=== PATIENT | female | born 1975 | race Hispanic/Latino ===

== ENCOUNTER 2019-11-07 11:06 | Emergency (ER) | payer BC ==
[~2019-11-07] VITALS: Ht 160 cm; Wt 74.8 kg
[2019-11-07] MEDS ORDERED: SODIUM CHLORIDE 0.9% 1000ML 1,000 ML IV STA (11:24)
[2019-11-07] MEDS ORDERED: ONDANSETRON HCL INJ 2MG/ML 2ML 2 MG/ML VIAL IV NR (11:30)
[2019-11-07] MEDS ORDERED: PANTOPRAZOLE 40 MG 10ML VIAL IV NR (11:30)
[2019-11-07] MEDS ORDERED: KETOROLAC TROMETHAMINE 30 MG/ML VIAL IV ONE (11:45)
[2019-11-07 11:53] LABS: BASOPHILS # (AUTO) 0.1 (0.0-0.1); BASOPHILS % 0.7 % (0.0-1.0); EOSINOPHILS # (AUTO) 1.6 (0.0-0.4); EOSINOPHILS % 13.4 % (0.0-6.0); HEMATOCRIT 40.3 % (34.2-44.1); HEMOGLOBIN 13.1 g/dL (12.0-16.0); LYMPHOCYTES # (AUTO) 2.5 (1.0-3.2); LYMPHOCYTES % 20.4 % (18.0-39.1); MEAN CORPUSCULAR HEMOGLOBIN 28.6 pg (28-32); MEAN CORPUSCULAR HGB CONC 32.5 g/dL (31-35); MONOCYTES # (AUTO) 0.7 (0.2-0.8); MONOCYTES % 5.7 % (4.4-11.3); NEUTROPHILS # (AUTO) 7.1 (2.1-6.9); NEUTROPHILS % 59.2 % (38.7-80.0); PLATELET COUNT 415 x10e3/uL (140-360); RED BLOOD COUNT 4.58 x10e6/uL (3.6-5.1); RED CELL DISTRIBUTION WIDTH 13.8 % (11.7-14.4)
--- OUTSIDE RECORDS SUMMARY | 2019-11-07 11:53 | XMS REPORT | Continuity of Care Document ---
Author Author [facility] t Organization [facility] Address [address] [place] [address] Phone Unavailable Care Team Providers Care Supervisor Canvas Products Name Role Phone Imtiaz CURRIE, Luis PCP Merary VEGAS, Ivania Abbott Attphys [phone] Donna RAMOSN, Any Attphys Unavailable Torrey CURRIE, Jamee Kee Attphys [phone] Bryan HUERTA, Veronika Attphys Unavailable Anito, B Binca Attphys Unavailable TRICHE, MILICENT Attphys Unavailable TRICHE, MILICENT Admphys Unavailable Payers Payer Name Policy Type Policy Number Effective Date Expiration Date S john BCBSBCBS CHOICE PPO/FEDERAL EMPL PPOxxxxxxxxxxxx2015-Pre sentPPO xxxxxxxxxxxx 2015 00:00:00 Hardeep Evangelical Problems Condition Name Condition Details Condition Category Status Onset Date Resolution Date Last Treatment Date Treating Clinician Comments Source Ulcerative colitis Ulcerative colitis Disease Active 2017-11-29 00:00:0 0 Hardeep Nuñez Allergies, Adverse Reactions, Alerts This patient has no known allergies or adverse reactions. Family History Family Member Diagnosis Comments Start Date Stop Date Source Natural brother No Known Problems Ho noman Evangelical Natural father No Known Problems Sakshi rowland Evangelical Maternal grandfather No Known Problems Hardeep Evangelical Maternal grandmother No Known Problems Meier Evangelical Natural mother No Known Problems Sakshi rowland Evangelical Other No Known Problems Hardeep Evangelical Paternal grandfather No Known Problems Hardeep Evangelical Paternal grandmother No Known Problems Hardeep Evangelical Natural sister No Known Problems Sakshi rowland Evangelical Social History Social Habit Start Date Stop Date Quantity Comments Source Sex Assigned At Sakshi rowland Evangelical Alcohol intake 2019-03-29 00:00:00 2019-03-29 00:00:00 Current non-drinker of alcohol (finding) Hardeep Nuñez History of tobacco use 1998-08-31 00:00:00 Current smoker Hardeep Nuñez Smoking Status Start Date Stop Date Source Former smoker 2019-03-29 00:00:00 2019-03-29 00:00:00 Hardeep Nuñez Medications Ordered Medication Name Filled Medication Name Start Date Stop Da te Current Medication? Ordering Clinician Indication Dosage Frequency Signature (SIG) Comments Components Source mesalamine (ASACOL) 800 mg EC tablet 2019-08-28 00:00:00 Ye s TAKE 2 TABLETS BY MOUTH 3 TIMES A DAY Hardeep Nuñez ergocalciferol (VITAMIN D2) 50,000 unit capsule 2019-08-28 00:00 :00 Yes 41905D Q7D Take 1 capsule (50,000 Units total) by mouth once a we ek. Hardeep Nuñez budesonide 9 mg tablet, delayed & ext.release 10-09-00 00:00:00 2019-09-22 23:59:00 No Ulcerative pancolitis with other complication ( HCC) Take one po qd Hardeep Nuñez budesonide 9 mg tablet, delayed & ext.release 11-08-24 00:00:00 2019-08-23 00:00:00 No Take one po qd Hardeep Nuñez budesonide (Uceris) 2 mg/actuation foam 00:00:00 2019-09-26 23:59:00 No Insert 1 appli cator pr BID x 2 weeks, then qhs x 4 weeks, then stop Hardeep Nuñez traMADol (ULTRAM) 50 mg tablet 2019-03-29 11:00:46 2019-03-29 00 :00:00 No 50mg Q6H Take 50 mg by mouth every 6 (six) hours as neede d for moderate pain. Hardeep Nuñez ranitidine (ZANTAC) 150 MG tablet 2019-03-29 11:00:46 2019 00:00:00 No 150mg Q.5D Take 150 mg by mouth 2 (two) times a day . Hardeep Nuñez celecoxib (CeleBREX) 100 MG capsule 2019-03-29 00:00:00 Yes Pain in joint, multiple sites 100mg Q.5D Take 1 capsule (100 mg total) by mouth 2 (two) times a day. As needed for joint pain Hardeep mireles VITAMIN D2 50,000 unit capsule 2018-12-26 00:00:00 5 00:00:00 No Vitamin D deficiency TAKE ONE CAPSULE BY MOUTH ONCE WEEKLY Hardeep Nuñez celecoxib (CeleBREX) 100 MG capsule 2018-11-25 00:00:0 0 2019-03-29 00:00:00 No Pain in joint involving multiple sites 100mg Q. 5D Take 1 capsule (100 mg total) by mouth 2 (two) times a day. As needed for joint pain Hardeep Nuñez methylPREDNISolone (MEDROL, ANASTASIYA,) 4 mg tablet 20 11-12-03 00:00:00 2018-11-30 23:59:00 No Pain in joint involving multiple sites follow package directions Hardeep Nuñez adjuvant [id number], PF,vial 1 of 2 suspension 2018-02 00:00:00 2018-11-24 23:59:00 No Need for shingles vaccine .5mL Inject 0.5 mL into the shoulder, thigh, or buttocks once for 1 dose. Vikki Nuñez varicella-zoster gE vac,2 of 2 50 mcg suspension for reconst itution 2018-11-24 00:00:00 2018-11-24 23:59:00 No Need for shingles vaccine .5mL Inject 0.5 mL into the shoulder, thigh, or buttocks once for 1 dose. Hardeep Nuñez budesonide (UCERIS) 2 mg/actuation foam 00:00:00 2019-02-17 23:59:00 No Ulcerative pancolitis with rectal bleeding (HCC ) 1 application rectally twice daily x 2 weeks followed by 1 application rectally once daily x 4 weeks Hardeep Nuñez pantoprazole (PROTONIX) 40 MG EC tablet 2018-08-17 00:00:00 Yes 40mg QD Take 1 tablet (40 mg total) by mouth daily. Hardeep Nuñez dicyclomine (BENTYL) 10 MG capsule 2018-08-17 00:00:00 Yes Lower abdominal pain Take 1-2 capsules up to four regino es daily as needed for abdominal pain Hardeep Nuñez mesalamine (ASACOL) 800 mg EC tablet 2018-08-17 00:00: 00 2019-08-28 00:00:00 No 1600mg Q.[id number] Take 2 tablets (1,600 mg total) by mouth 3 (three) times a day. Hardeep Nuñez vedolizumab (ENTYVIO) 300 mg recon soln IV solution 2017-02 00:00:00 Yes Infuse 300mg IV every 8 weejs Hardeep Nuñez ergocalciferol (VITAMIN D2) 50,000 unit capsule 2017-11-30 00:00:00 2018-12-23 00:00:00 No Vitamin D deficiency 55574M Q7D Take 1 capsule (50,000 Units total) by mouth once a week. Hardeep lomeli Immunizations Ordered Immunization Name Filled Immunization Name Date Status Comments Source Hepatitis B 2018-01-26 00:00:00 Completed Vikki Nuñez Pneumococcal Polysaccharide 2018-01-26 00:00:00 Completed Hardeep Nuñez FLUZONE QUAD 2017-12-05 00:00:00 Completed Sakshi Nuñez Pneumococcal Conjugate 13-Valent 2017-11-29 00:00:00 Compl eted Hardeep Nuñez Vital Signs Vital Name Observation Time Observation Value Comments Source Systolic blood pressure 2019-03-29 10:58:00 119 mm[Hg] Hardeep Nuñez Diastolic blood pressure 2019-03-29 10:58:00 81 mm[Hg] Hardeep Nuñez Heart rate 2019-03-29 10:58:00 88 /min Hardeep Nuñez Body height 2019-03-29 10:58:00 160 cm Hardeep Nuñez Body weight 2019-03-29 10:58:00 74.844 kg Hardeep Nuñez BMI 2019-03-29 10:58:00 29.23 kg/m2 Hardeep Nuñez Procedures Procedure Date / Time Performed Performing Clinician [facility] CBC WITH PLATELET AND DIFFERENTIAL 2019-11-06 16:57:00 Chilango Moran COMPREHENSIVE METABOLIC PANEL 2019-11-06 16:57:00 Chilango Moran SEDIMENTATION RATE 2019-11-06 16:57:00 Chilango Moran VITAMIN D 25 HYDROXY LEVEL 2019-11-06 16:57:00 Chilango Moran FERRITIN LEVEL 2019-11-06 16:57:00 Chilango Moran on Evangelical TOTAL IRON BINDING CAPACITY 2019-11-06 16:57:00 Chilango Moran Evangelical CBC WITH PLATELET AND DIFFERENTIAL 2019-03-29 11:49:00 Milena Reagan Evangelical COMPREHENSIVE METABOLIC PANEL 2019-03-29 11:49:00 Mare Reagan Meier Evangelical C-REACTIVE PROTEIN 2019-03-29 11:49:00 Milena Reagan Ivania H benjaminjanett Evangelical SEDIMENTATION RATE 2019-03-29 11:49:00 Milena Reagan benjaminjanett Evangelical FERRITIN LEVEL 2019-03-29 11:49:00 Milena Reagan Ivania Vikki maliha Evangelical FOLATE LEVEL 2019-03-29 11:49:00 Milena Reagan Ivania Vikki maliha Evangel[employer] TOTAL IRON BINDING CAPACITY 2019-03-29 11:49:00 Milena Reagan Meier Evangelical VITAMIN B12 LEVEL 2019-03-29 11:49:00 Milena Reagan [facility] Evangelical VITAMIN D 25 HYDROXY LEVEL 2019-03-29 11:49:00 Milena Reagan Meier Evangelical CYCLIC CITRULLINATED PEPTIDE AB, IGG 2019-03-29 11:49:00 Milena Robison Evangelical CBC WITH PLATELET AND DIFFERENTIAL 2018-11-30 11:23:00 Chilango Moran [facility] COMPREHENSIVE METABOLIC PANEL 2018-11-30 11:23:00 Chilango Moran Evangelical SEDIMENTATION RATE 2018-11-30 11:23:00 Chilango Moran [facility] Evangelical C-REACTIVE PROTEIN 2018-11-30 11:23:00 Chilango Moran [facility] Evangelical HDL CHOLESTEROL 2018-11-30 11:23:00 Chilango Moran on Evangelical TRIGLYCERIDES 2018-11-30 11:23:00 Chilango Moran on Evangelical LDL-CHOLESTEROL (REFLEX QUEST) 2018-11-30 11:23:00 Cindy Moran Evangelical NON HDL CHOLESTEROL (REFLEX QUEST) 2018-11-30 11:23:00 Chilango Moran QUANTIFERON-TB GOLD PLUS, 1 TUBE 2018-11-30 11:23:00 Chilango Moran Evangelical Plan of Care Planned Activity Planned Date Details Comments Source Future Scheduled Test 2019-10-24 00:00:00 INFLUENZA VACCINE [code = INFLUENZA VACCINE] Hardeep Nuñez Future Scheduled Test 1996-02-04 00:00:00 Screening for maci gnant neoplasm of cervix (procedure) [code = 619837197] Meier Priscillacasie Encounters Start Date/Time End Date/Time Encounter Type [facility] Care Department Encounter ID Source 2019-08-28 00:00:00 2019-08-28 00:00:00 Outpatient [facility] [id number] Hardeep Nuñez 2016-11-02 15:12:00 2016-11-02 23:59:00 Outpatient Ailson [facility] [id number] [facility] Results Test Description Test Time Test Comments Results Result Comments Source Comprehensive metabolic panel 2019-11-07 05:29:00 Test Item Glucose (test code = 2345-7) 126 mg/dL 65-99 H Fasting reference interval For someone without known diabetes, a glucosevalue >125 mg/dL indicates that they may havediabetes and this should be confirmed with afollow-up test. BUN (test code = 3094-0) 9 mg/dL 7-25 Creatinine (test code = 2160-0) 0.65 mg/dL 0.5-1.1 EGFR Non-Afr. Colombian (test code = 2775) 108 > OR = 60 mL /min/1.73m2 EGFR (test code = 95214-3) 125 > OR = 60 mL/min/1.73m2 BUN/creatinine ratio (test code = 3097-3) NOT APPLICABLE 6- 22 (bryan c) Sodium (test code = 2951-2) 137 mmol/L 135-146 Potassium (test code = 2823-3) 3.7 mmol/L 3.5-5.3 Chloride (test code = 2075-0) 98 mmol/L 98-110 CO2 (test code = 2027-9) 30 mmol/L 20-32 Calcium (test code = 49405-6) 9.1 mg/dL 8.6-10.2 Protein (test code = 2885-2) 7.1 g/dL 6.1-8.1 Albumin, S (test code = 1751-7) 4.1 g/dL 3.6-5.1 Globulin, total (test code = 06622-2) 3.0 1.9- 3.7 g/dL (c alc) Albumin/globulin ratio (test code = 1759-0) 1.4 1.0- 2.5 ( calc) Total bilirubin (test code = 1975-2) 0.4 mg/dL 0.2-1.2 Alkaline phosphatase (test code = 6768-6) 95 U/L 31-125 AST (test code = 1920-8) 20 U/L 10-30 ALT (test code = 1742-6) 26 U/L 6-29 IRENA (test code = IRENA) MULTIPLE TESTING PRIORITIES; ROUTINE TESTI NG TO FOLLOW. RAC (test code = RAC) Performing Organization Info rmation: Site ID: RGA Name: [facility] Address: [address] [place] [address] Director: Clay Díaz Lab Interpretation (test code = 77016-5) Abnormal Lee MethodistFerritin [id number] 05:29:00* Test Item Value Reference Range Interpretation Comments Ferritin level (test code = 2276-4) 215 ng/mL 16-232 IRENA (test code = IRENA) MULTIPLE TESTING PRIORITIES; ROUTINE TESTI NG TO FOLLOW. RAC (test code = RAC) Performing Organization Info rmation: Site ID: RGA Name: [facility] Address: [address] [place] [address] Director: Clay Díaz Lee MethodRUST with platelet and [id number] 05:29:00* Test Item Value Reference Range Interpretation Comments WBC (test code = 6690-2) 19.8 3.8- 10.8 Thousand/uL H RBC (test code = 789-8) 4.66 3.80- 5.10 Million/uL HGB (test code = 718-7) 13.6 g/dL 11.7-15.5 HCT (test code = 4544-3) 41.3 % 35-45 MCV (test code = 787-2) 88.6 fL 80-100 MCH (test code = 785-6) 29.2 pg 27-33 MCHC (test code = 786-4) 32.9 g/dL 32-36 RDW (test code = 788-0) 13.4 % 11-15 Platelet count (test code = 777-3) 421 140- 400 Thousand/u L H MPV (test code = 776-5) 9.4 fL 7.5-12.5 Neutrophils, absolute (test code = 751-8) 26558 1,500 - 7,80 0 cells/uL H Lymphocytes, absolute (test code = 731-0) 3485 850- 3,900 c ells/uL Monocytes, absolute (test code = 742-7) 990 200- 950 cells /uL H Eosinophils, absolute (test code = 711-2) 1307 15- 500 cell s/uL H Basophils, absolute (test code = 704-7) 99 0- 200 cells/u L Neutrophils (test code = 770-8) 70.3 % Lymphocytes (test code = 736-9) 17.6 % Monocytes (test code = 5905-5) 5.0 % Eosinophils (test code = 713-8) 6.6 % Basophils + RC (test code = 706-2) 0.5 % IRENA (test code = IRENA) MULTIPLE TESTING PRIORITIES; ROUTINE TESTI NG TO FOLLOW. RAC (test code = RAC) Performing Organization Info rmation: Site ID: [facility] Name: [facility] Address: [address] [place] [address] Director: Clay Díaz Lab Interpretation (test code = 54430-8) Abnormal Lee MethodistSedimentation [id number] 05:29:00* Test Item Value Reference Range Interpretation Comments Sedimentation rate (test code = 4537-7) 43 mm/h < OR = 20 H IRENA (test code = IRENA) MULTIPLE TESTING PRIORITIES; ROUTINE TESTI NG TO FOLLOW. RAC (test code = RAC) Performing Organization Info rmation: Site ID: A Name: [facility] Address: [address] [place] [address] Director: Clay Díaz Lab Interpretation (test code = 02797-4) Abnormal Meier MethodistVitamin D 25 hydroxy [id number] 05:29:00* Test Item Value Reference Range Interpretation Comments Vitamin D, 25-hydroxy (test code = 1988-3) 37 ng/mL 30-100 Vitamin D Status 25-OH Vitamin D: Deficiency: <20 ng/mLInsufficiency: 20 - 29 ng/mLOptimal: > or = 30 ng/mL For 25-OH Vitamin D testing on patients on D2-supplementation and patients for whom quantitation of D2 and D3 fractions is required, the QuestAssureD(TM)25-OH VIT D, (D2,D3), LC/MS/MS is recommended: order code 07398 (patients >2yrs).See Note 1 Note 1 For additional information, please refer to http://education.CrestaTech/faq/RSP671 (This link is being provided for informational/educational purposes only.) IRENA (test code = IRENA) MULTIPLE TESTING PRIORITIES; ROUTINE TESTI NG TO FOLLOW. RAC (test code = RAC) Performing Organization Info rmation: Site ID: JOELLE Name: [facility] Address: [address] [place] [address] Director: Clay Díaz Lee [facility] center[facility] iron binding [id number] 05:29:00* Test Item Value Reference Range Interpretation Comments Iron level (test code = 2498-4) 46 40- 190 mcg/dL Iron binding capacity (test code = 2500-7) 267 250- 450 mc g/dL (calc) Iron saturation (test code = 2502-3) 17 16- 45 % (calc) IRENA (test code = IRENA) MULTIPLE TESTING PRIORITIES; ROUTINE TESTI NG TO FOLLOW. RAC (test code = RAC) Performing Organization Info rmation: Site ID: ROJASA Name: [facility] Address: [address] [place] [address] Director: Clay Díaz Lee MethodistVitamin B12 [id number] 08:09:00* Test Item Value Reference Range Interpretation Comments Vitamin B12 (test code = 2132-9) 584 pg/mL 200-1100 IRENA (test code = IRENA) FASTING:NOFASTING: NO RAC (test code = RAC) Performing Organization Info rmation: Site ID: JOELLE Name: [facility] Address: [address] [place] [address] Director: Clay Meier MethodistFolate [id number] 08:09:00* Test Item Value Reference Range Interpretation Comments Folate (test code = 2284-8) 11.8 ng/mL Reference Range Low: <3.4 Borderline: 3.4-5.4 Normal: >5.4 IRENA (test code = IRENA) FASTING:NOFASTING: NO RAC (test code = RAC) Performing Organization Info rmation: Site ID: RGA Name: [facility] Address: [address] [place] [address] Director: Clay Meier MethodistC-reactive [id number] 08:09:00* Test Item Value Reference Range Interpretation Comments CRP (test code = 1988-5) 15.9 mg/L <8.0 H IRENA (test code = IRENA) FASTING:NOFASTING: NO RAC (test code = RAC) Performing Organization Info rmation: Site ID: RGA Name: [facility] Address: [address] [place] [address] Director: Clay Díaz Lab Interpretation (test code = 44061-0) Abnormal Lee MethodistCyclic citrullinated peptide antibody, [id number] 08:09:00* Test Item Value Reference Range Interpretation Comments Cyclic citrullin peptide Ab (test code = 75161-3) <16 UN[address] S Reference RangeNegative: <20Weak Positive: 20-39Moderate Positive: 40- 59Strong Positive: >59 IRENA (test code = IRENA) FASTING:NOFASTING: NO RAC (test code = RAC) Performing Organization Info rmation: Site ID: IG Name: [facility] Address: [address] [place] [address] Director: Dr. Clay Díaz Meier [id number] 00:31:00* Test Item Value Reference Range Interpretation Comments Cholesterol, total (test code = 2093-3) 170 mg/dL <200 IRENA (test code = IRENA) FASTING:YESFASTING: YES RAC (test code = RAC) Performing Organization Info rmation: Site ID: RGA Name: [facility] Address: [address] [place], [place] [id number] Director: Clay Díaz Meier EvangelicalHDL [id number] 00:31:00* Test Item Value Reference Range Interpretation Comments HDL cholesterol (test code = 2085-9) 59 mg/dL >50 IRENA (test code = IRENA) FASTING:YESFASTING: YES RAC (test code = RAC) Performing Organization Info rmation: Site ID: JOELLE Name: [facility] Address: [address] [place] [address] Director: Clay Gambinoridge Lee [id number] 00:31:00* Test Item Value Reference Range Interpretation Comments Triglycerides (test code = 2571-8) 94 mg/dL <150 IRENA (test code = IRENA) FASTING:YESFASTING: YES RAC (test code = RAC) Performing Organization Info rmation: Site ID: JOELLE Name: [facility] Address: [address] [place] [address] Director: Clay Gambinoridge Lee MethodistLDL-CHOLESTEROL (REFLEX QUEST)2018-12-03 00:31:00* Test Item Value Reference Range Interpretation Comments LDL cholesterol calculated (test code = 31562-4) 92 mg/dL (calc) Reference range: <100 Desirable range <100 mg/dL for primary prevention; <70 mg/dL for patients with CHD or diabetic patients with > or = 2 CHD risk factors. LDL-C is now calculated using the James-Candi calculation, which is a validated novel method providing better accuracy than the Friedewald equation in the estimation of LDL-C. James DONOHUE et al. PARAM. 2013;310(19): 2901-4844 (http:/ /education.Divide.DoubleVerify/faq/CPZ516) IRENA (test code = IRENA) FASTING:YESFASTING: YES RAC (test code = RAC) Performing Organization Info rmation: Site ID: JOELLE Name: [facility] Address: [address] [place] [address] Director: Clay Díaz Lee MethodmaryCHOL/HDLC RATIO (REFLEX QUEST)2018-12-03 00:31:00* Test Item Value Reference Range Interpretation Comments Cholesterol/HDL ratio (test code = 9830-1) 2.9 <5.0 (calc) IRENA (test code = IRENA) FASTING:YESFASTING: YES RAC (test code = RAC) Performing Organization Info rmation: Site ID: ROJASA Name: [facility] Address: [address] [place] [address] Director: Clay Díaz Meier Yolanda HDL CHOLESTEROL (REFLEX QUEST)2018-12-03 00:31:00* Test Item Value Reference Range Interpretation Comments Non-HDL cholesterol (test code = 92464-8) 111 <130 mg/dL ( calc) For patients with diabetes plus 1 major ASCVD risk factor, treating to a non-HDL-C goal of <100 mg/dL (LDL-C of <70 mg/dL) is considered a therapeutic option. IRENA (test code = IRENA) FASTING:YESFASTING: YES LUIS DANIEL (test code = RAC) Performing Organization Info rmation: Site ID: ROJASA Name: [facility] Address: [address] [place] [address] Director: Clay Díaz Meier EvangelicalQuantiFERON-TB Gold Plus, 1 [id number] 00:31:00* Test Item Value Reference Range Interpretation Comments Quantiferon TB gold plus (test code = 78837-6) NEGATIVE NEGATIV E Negative test result. M. tuberculosis complex infection unlikely. Quantiferon NIL (test code = 30104-7) 0.04 IU/mL Quantiferon mitogen minus NIL (test code = 55875-9) >10.00 IU /mL Quantiferon plus TB1 minus NIL (test code = 03572-3) 0.00 I U/mL Quantiferon plus TB2 minus NIL (test code = 5774) 0.01 IU/m L The Nil tube value reflects the background interferongamma immune response of the patient's blood sample.This value has been subtracted from the patient'sdisplayed TB and Mitogen results. Lower than expected results with the Mitogen tubeprevent false- negative Quantiferon readings bydetecting a patient with a potential immunesuppressive condition and/or suboptimal pre-analyticalspecimen handling. The TB1 Antigen tube is coated with theM. tuberculosis-specific antigens designed to elicitresponses from TB antigen primed CD4+ helperT-lymphocytes. The TB2 Antigen tube is coated with theM. tuberculosis-specific antigens designed to elicitresponses from TB antigen primed CD4+ helper and CD8+cytotoxic T- lymphocytes. For additional information, please refer tohttps://education.NewsHunt.DoubleVerify/faq/BEW662(This link is being provided for informational/educational purposes only.) IRENA (test code = IRENA) FASTING:YESFASTING: YES RAC (test code = RAC) Performing Organization Info rmation: Site ID: RGA Name: [facility] Address: [address] [place] [phone] Director: Clay Nuñez
--- OUTSIDE RECORDS SUMMARY | 2019-11-07 11:53 | XMS REPORT | Clinical Summary ---
Author Author [facility] Address Unknown Phone Unavailable Care Team Providers Care Appliance Repairer Name Role Phone Luis Kitchen MD PCP Allergies No Known Allergies Medications End Date Status Medication Sig Dispensed Refills Start Date Active vedolizumab (ENTYVIO) 300 Infuse 300mg 1 each 11 mg recon soln IV solution IV every 8 8 weejs Additional Information Patient taking differently: 300 mg once, Infuse 300mg IV every 4 weeks, last dose Apr 07 . Next one due May 05., Reported on 04/26/2018 10:58 AM Active pantoprazole (PROTONIX) Take 1 tablet 90 tablet 3 40 MG EC tablet (40 mg total) 9 by mouth daily. Active dicyclomine (BENTYL) 10 Take 1-2 180 capsule 3 MG capsuleIndications: capsules up 9 Lower abdominal pain to four times daily as needed for abdominal pain Active celecoxib (CeleBREX) 100 Take 1 60 capsule 3 0 MG capsuleIndications: capsule (100 0 Pain in joint, multiple mg total) by sites mouth 2 (two) times a day. As needed for joint pain Active mesalamine (ASACOL) 800 TAKE 2 540 tablet 3 mg EC tablet TABLETS BY 0 MOUTH 3 TIMES A DAY Active ergocalciferol (VITAMIN Take 1 12 capsule 6 D2) 50,000 unit capsule capsule 0 (50,000 Units total) by mouth once a week. 03/29/2019 Discontinued (Discontinued b y another clinician) traMADol (ULTRAM) 50 mg Take 50 mg by 0 tablet mouth every 6 (six) hours as needed for moderate pain. 03/29/2019 Discontinued (Discontinued b y another clinician) ranitidine (ZANTAC) 150 Take 150 mg 0 MG tablet by mouth 2 (two) times a day. 12/23/2018 Discontinued (Reorder) ergocalciferol (VITAMIN Take 1 12 capsule 3 D2) 50,000 unit capsule 8 capsuleIndications: (50,000 Units Vitamin D deficiency total) by mouth once a week. 08/28/2019 Discontinued mesalamine (ASACOL) 800 Take 2 540 tablet 3 mg EC tablet tablets 9 (1,600 mg total) by mouth 3 (three) times a day. 02/17/2019 budesonide (UCERIS) 2 1 application 33.4 g 3 mg/actuation rectally 9 foamIndications: twice daily x Ulcerative pancolitis 2 weeks with rectal bleeding followed by 1 (HCC) application rectally once daily x 4 weeks 11/24/2018 adjuvant AS01B, PF,vial 1 Inject 0.5 mL 0.5 mL 1 of 2 into the 9 suspensionIndications: shoulder, Need for shingles vaccine thigh, or buttocks once for 1 dose. 11/24/2018 varicella-zoster gE vac,2 Inject 0.5 mL 1 each 1 of 2 50 mcg suspension into the 9 for shoulder, reconstitutionIndications thigh, or : Need for shingles buttocks once vaccine for 1 dose. 11/30/2018 methylPREDNISolone follow 21 tablet 0 01 (MEDROL, ANASTASIYA,) 4 mg package 9 tabletIndications: directions Ulcerative pancolitis with rectal bleeding (HCC), Pain in joint involving multiple sites 03/29/2019 Discontinued (Reorder) celecoxib (CeleBREX) 100 Take 1 60 capsule 3 1 MG capsuleIndications: capsule (100 9 Pain in joint involving mg total) by multiple sites mouth 2 (two) times a day. As needed for joint pain 03/29/2019 Discontinued (Discontinued b y another clinician) VITAMIN D2 50,000 unit TAKE ONE 12 capsule 2 capsuleIndications: CAPSULE BY 9 Vitamin D deficiency MOUTH ONCE WEEKLY 09/26/2019 budesonide (Uceris) 2 Insert 1 66.8 g 0 07/24 mg/actuation foam applicator pr 0 BID x 2 weeks, then qhs x 4 weeks, then stop 08/23/2019 Discontinued (Reorder) budesonide 9 mg tablet, Take one po 30 tablet 3 delayed & ext.release qd 0 09/22/2019 budesonide 9 mg tablet, Take one po 30 tablet 3 delayed & qd 0 ext.releaseIndications: Ulcerative pancolitis with other complication (HCC) Active Problems Problem Noted Date Ulcerative colitis 11/29/2017 Encounters Care Team Description Date Type Specialty Milena Reagan PA Ulcerative pancolitis with other complic ation (HCC) (Primary Dx); Encounter for therapeutic drug monitoring 11/07/2019 Orders Only Gastroenterology Any Thompson LVN IBD (inflammatory bowel disease) (Primar y Dx); Fatigue, unspecified type; Nutritional assessment 11/06/2019 Orders Only Gastroenterology Chilango Hirsch MD Ulcerative pancolitis with other complic ation (HCC) (Primary Dx); Pain in joint, multiple sites; Rash/skin eruption; Vitamin D deficiency; Encounter for therapeutic drug monitoring; Health care maintenance 08/28/2019 Telemedicine Gastroenterology Chilango Hirsch MD 08/23/2019 Refill Gastroenterology Veronika Adams MA Ulcerative pancolitis with other complic ation (HCC) (Primary Dx) 08/23/2019 Refill Gastroenterology Any Thompson, NILDA 08/17/2019 Orders Only GastroenterAny Dong, FAMILY DAY CARE WORKER 08/17/2019 Orders Only Gastroenterology 08/15/2019 Travel Any Thompson, FAMILY DAY CARE WORKER 08/15/2019 Orders Only Gastroenterology Any Thompson, FAMILY DAY CARE WORKER 05/12/2019 Documentation GastroenterLuci Oreilly 03/31/2019 Documentation Gastroenterology Milena Reagan PA Elevated alkaline phosphatase level (Maryellen kelly Dx) 03/30/2019 Orders Only Milena De Oliveira PA Ulcerative pancolitis with other complic ation (HCC) (Primary Dx); Lower abdominal pain; Pain in joint, multiple sites; Rash/skin eruption; Encounter for therapeutic drug monitoring; Encounter for nutritional assessment; Vitamin D deficiency; Other specified counseling 03/29/2019 Office Visit Gastroenterology Milena Reagan PA Vitamin D deficiency 12/23/2018 Refill Gastroenterology Milena Reagan PA Ulcerative pancolitis with rectal bleedi ng (HCC) (Primary Dx); Pain in joint involving multiple sites 11/25/2018 Orders Only Gastroenterology Veronika Adams MA Need for shingles vaccine (Primary Dx) 11/24/2018 Orders Only Gastroenterology Any Thompson LVN 11/23/2018 Documentation Gastroenterology Any Thompson LVN Chronic ulcerative enterocolitis with co mplication (HCC) (Primary Dx); Therapeutic drug monitoring 11/23/2018 Orders Only GastroenterMilena Muro PA Ulcerative pancolitis with rectal bleedi ng (HCC) (Primary Dx) 11/18/2018 Orders Only Gastroenterology after 11/06/2018 Immunizations Name Administration Dates Next Due FLUZONE QUAD 12/05/2017 Hepatitis B 01/26/2018 Pneumococcal Conjugate 11/29/2017 13-Valent Pneumococcal 01/26/2018 Polysaccharide Family History Medical History Relation Name Comments No Known Problems Brother No Known Problems Father No Known Problems Maternal Grandfather No Known Problems Maternal Grandmother No Known Problems Mother No Known Problems Other No Known Problems Paternal Grandfather No Known Problems Paternal Grandmother No Known Problems Sister Relation Name Status Comments Brother Father Maternal Grandfather Maternal Grandmother Mother Other Paternal Grandfather Paternal Grandmother Sister Social History Date Tobacco Use Types Packs/Day Years Used Quit: 08/31/1998 Former Smoker Smokeless Tobacco: Never Used Drinks/Week oz/Week Comments Alcohol Use No Sex Assigned at Date Recorded Not on file Industry Job Start Date Occupation Not on file Not on file Not on file Travel End Travel History Travel Start No recent travel history available. Last Filed Vital Signs Reading Time Taken Comments Vital Sign 119/81 03/29/2019 10:58 AM COUNSEL Blood Pressure 88 03/29/2019 10:58 AM COUNSEL Pulse - - Temperature - - Respiratory Rate - - Oxygen Saturation - - Inhaled Oxygen Concentration 74.8 kg (165 lb) 03/29/2019 10:58 AM COUNSEL Weight 160 cm (5' 3") 03/29/2019 10:58 AM COUNSEL Height 29.23 03/29/2019 10:58 AM COUNSEL Body Mass Index Plan of Treatment Health Maintenance Due Date Last Done Comments CERVICAL CANCER SCREENING 02/04/1996 INFLUENZA VACCINE 10/24/2019 04/21/2019, 12/05/2017 Procedures Comments Procedure Name Priority Date/Time Associated Diag nosis TOTAL IRON BINDING Routine 11/06/2019 IBD (inflam matory bowel CAPACITY 4:57 PM CDT disease) Fatigue, unspecified type Nutritional assessment FERRITIN LEVEL Routine 11/06/2019 IBD (inflammato ry bowel 4:57 PM CDT disease) Fatigue, unspecified type Nutritional assessment VITAMIN D 25 HYDROXY Routine 11/06/2019 IBD (infl ammatory bowel LEVEL 4:57 PM CDT disease) Fatigue, unspecified type Nutritional assessment SEDIMENTATION RATE Routine 11/06/2019 IBD (inflam matory bowel 4:57 PM CDT disease) Fatigue, unspecified type Nutritional assessment COMPREHENSIVE METABOLIC Routine 11/06/2019 IBD (i nflammatory bowel PANEL 4:57 PM CDT disease) Fatigue, unspecified type Nutritional assessment CBC WITH PLATELET AND Routine 11/06/2019 IBD (inf lammatory bowel DIFFERENTIAL 4:57 PM CDT disease) Fatigue, unspecified type Nutritional assessment CYCLIC CITRULLINATED Routine 03/29/2019 Pain in j oint, multiple PEPTIDE AB, IGG 11:49 AM COUNSEL sites VITAMIN D 25 HYDROXY Routine 03/29/2019 Encounter for nutritional LEVEL 11:49 AM COUNSEL assessment VITAMIN B12 LEVEL Routine 03/29/2019 Encounter fo r nutritional 11:49 AM COUNSEL assessment TOTAL IRON BINDING Routine 03/29/2019 Encounter f or nutritional CAPACITY 11:49 AM COUNSEL assessment FOLATE LEVEL Routine 03/29/2019 Encounter for n utritional 11:49 AM COUNSEL assessment FERRITIN LEVEL Routine 03/29/2019 Encounter for n utritional 11:49 AM COUNSEL assessment SEDIMENTATION RATE Routine 03/29/2019 Ulcerative pancolitis 11:49 AM COUNSEL with other complication (HCC) Encounter for therapeutic drug monitoring C-REACTIVE PROTEIN Routine 03/29/2019 Ulcerative pancolitis 11:49 AM COUNSEL with other complication (HCC) Encounter for therapeutic drug monitoring COMPREHENSIVE METABOLIC Routine 03/29/2019 Ulcera tive pancolitis PANEL 11:49 AM COUNSEL with other complica tion (HCC) Encounter for therapeutic drug monitoring CBC WITH PLATELET AND Routine 03/29/2019 Ulcerati ve pancolitis DIFFERENTIAL 11:49 AM COUNSEL with other complica tion (HCC) Encounter for therapeutic drug monitoring QUANTIFERON-TB GOLD Routine 11/30/2018 PLUS, 1 TUBE 11:23 AM CDT NON HDL CHOLESTEROL Routine 11/30/2018 (REFLEX [facility]) 11:23 AM CDT CHOL/HDLC RATIO (REFLEX Routine 11/30/2018 [facility]) 11:23 AM CDT LDL-CHOLESTEROL (REFLEX Routine 11/30/2018 [facility]) 11:23 AM CDT TRIGLYCERIDES Routine 11/30/2018 11:23 AM CDT HDL CHOLESTEROL Routine 11/30/2018 11:23 AM CDT CHOLESTEROL Routine 11/30/2018 11:23 AM CDT C-REACTIVE PROTEIN Routine 11/30/2018 Chronic ulc erative 11:23 AM CDT enterocolitis with complication (HCC) Therapeutic drug monitoring SEDIMENTATION RATE Routine 11/30/2018 Chronic ulc erative 11:23 AM CDT enterocolitis with complication (HCC) Therapeutic drug monitoring COMPREHENSIVE METABOLIC Routine 11/30/2018 Chroni c ulcerative PANEL 11:23 AM CDT enterocolitis with complication (HCC) Therapeutic drug monitoring CBC WITH PLATELET AND Routine 11/30/2018 Chronic ulcerative DIFFERENTIAL 11:23 AM CDT enterocolitis with complication (HCC) Therapeutic drug monitoring after 11/06/2018 Results * Total iron binding capacity (11/06/2019 4:57 PM CDT) Only the most recent of 2 results within the time period is included. Iron level 46 40 - 190 mcg/dL [employer] [facility] Iron binding 267 250 - 450 mcg/dL [facility] capacity (calc) [facility] [place] Iron saturation 17 16 - 45 % (calc) [employer] [facility] [place] Specimen Blood Narrative Performed At MULTIPLE TESTING PRIORITIES; ROUTINE TESTING TO MailWriter Bailey [employer] Resulting Agency Comment Performing Organization Information: Site ID: [id number] Name: [facility] Address: [address] [place] [phone] Director: Clay Díaz Performing Organization Address [facility] one Number Standardized Safety [place] [phone] 72 * Vitamin D 25 hydroxy level (11/06/2019 4:57 PM CDT) Only the most recent of 2 results within the time period is included. Pathologist [facility] Vitamin D, 37 30 - 100 ng/mL [facility] 25-hydroxy Comment: DIAGNOSTICS Vitamin D Status [place] 25-OH Vitamin D: Deficiency: <20 ng/mL Insufficiency: 20 - 29 ng/mL Optimal: > or = 30 ng/mL For 25-OH Vitamin D testing on patients on D2-supplementation and patients for whom quantitation of D2 and D3 fractions is required, the QuestAssureD(TM) 25-OH VIT D, (D2,D3), LC/MS/MS is recommended: order code 72640 (patients >2yrs). See Note 1 Note 1 For additional information, please refer to http://education.[employer].com/faq/VXE657 (This link is being provided for informational/ educational purposes only.) Specimen Blood Narrative Performed At MULTIPLE TESTING PRIORITIES; ROUTINE TESTING TO RICH TROTTER Resulting Agency Comment Performing Organization Information: Site ID: [id number] Name: [facility] Address: [address] [place] [phone] Director: Clay Díaz Performing Organization Address [facility] one Number Standardized Safety [place] [phone] 72 * Sedimentation rate (11/06/2019 4:57 PM CDT) Only the most recent of 3 results within the time period is included. Sedimentation 43 (H) < OR = 20 mm/h [facility] rate [facility] [place] Specimen Blood Narrative Performed At MULTIPLE TESTING PRIORITIES; ROUTINE TESTING TO [employer] Resulting Agency Comment Performing Organization Information: Site ID: RGA Name: [facility] Address: [address] [place] [phone] Director: Clay Díaz Performing Organization Address City/State/Zipcode Ph one Number [facility] [place] [address] [place] [address] 72 * CBC with platelet and differential (11/06/2019 4:57 PM CDT) Only the most recent of 3 results within the time period is included. WBC 19.8 (H) 3.8 - 10.8 [facility] Thousand/uL [facility] [place] RBC 4.66 3.80 - 5.10 [facility] Million/uL [facility] [place] HGB 13.6 11.7 - 15.5 g/dL [facility] [place] HCT 41.3 35.0 - 45.0 % [facility] [place] MCV 88.6 80.0 - 100.0 fL [facility] [place] MCH 29.2 27.0 - 33.0 pg [facility] [place] MCHC 32.9 32.0 - 36.0 g/dL [facility] [place] RDW 13.4 11.0 - 15.0 % [facility] [place] Platelet count 421 (H) 140 - 400 [facility] Thousand/uL AKT [place] MPV 9.4 7.5 - 12.5 fL [facility] [place] Neutrophils, 13,919 (H) 1,500 - 7,800 [facility] absolute cells/uL [facility] [place] Lymphocytes, 3,485 850 - 3,900 cells/uL [facility] absolute [facility] [place] Monocytes, 990 (H) 200 - 950 cells/uL [facility] absolute [facility] [place] Eosinophils, 1,307 (H) 15 - 500 cells/uL [facility] absolute [facility] [place] Basophils, 99 0 - 200 cells/uL [facility] absolute [facility] [place] Neutrophils 70.3 % [facility] [place] Lymphocytes 17.6 % [facility] [place] Monocytes 5.0 % [facility] [place] Eosinophils 6.6 % [facility] [place] Basophils + RC 0.5 % [facility] [place] Specimen Blood Narrative Performed At MULTIPLE TESTING PRIORITIES; ROUTINE TESTING TO [employer] [facility] Resulting Agency Comment Performing Organization Information: Site ID: RGA Name: [facility] Address: [address] [place] [phone] Director: Clay Díaz Performing Organization Address [facility] one Number SERGO [employer] [place] [address] [place] [address] 72 * Ferritin level (11/06/2019 4:57 PM CDT) Only the most recent of 2 results within the time period is included. [facility] Ferritin level 215 16 - 232 ng/mL [facility] Specimen Blood Narrative Performed At MULTIPLE TESTING PRIORITIES; ROUTINE TESTING TO FOLLO W. [facility] Resulting Agency Comment Performing Organization Information: Site ID: A Name: [facility] Address: [address] [place] [phone] Director: Clay Díaz Performing Organization Address [facility] one Number Standardized Safety [place] [address] [place] [address] 72 * Comprehensive metabolic panel (11/06/2019 4:57 PM CDT) Only the most recent of 3 results within the time period is included. [facility] Glucose 126 (H) 65 - 99 mg/dL [facility] Comment: DIAGNOSTICS [facility] reference interval For someone without known diabetes, a glucose value >125 mg/dL indicates that they may have diabetes and this should be confirmed with a follow-up test. BUN 9 7 - 25 mg/dL [facility] [place] Creatinine 0.65 0.50 - 1.10 mg/dL [facility] [facility] [place] EGFR Non-Afr. 108 > OR = 60 [facility] Dutch mL/min/1.73m2 [facility] [place] EGFR 125 > OR = 60 [facility] Dutch mL/min/1.73m2 AKT [place] BUN/creatinine NOT APPLICABLE 6 - 22 (calc) [facility] Sodium 137 135 - 146 mmol/L [employer] [facility] [place] Potassium 3.7 3.5 - 5.3 mmol/L [facility] [place] Chloride 98 98 - 110 mmol/L [facility] [place] CO2 30 20 - 32 mmol/L [facility] [place] Calcium 9.1 8.6 - 10.2 mg/dL [facility] [employer] [facility] [place] Protein 7.1 6.1 - 8.1 g/dL [facility] [place] Albumin, S 4.1 3.6 - 5.1 g/dL [facility] AKT [place] Globulin, total 3.0 1.9 - 3.7 g/dL [facility] (calc) [facility] [place] Albumin/globuli 1.4 1.0 - 2.5 (calc) [facility] n ratio [facility] [place] Total bilirubin 0.4 0.2 - 1.2 mg/dL [facility] [place] Alkaline 95 31 - 125 U/L [facility] phosphatase [facility] [place] AST 20 10 - 30 U/L [facility] [place] ALT 26 6 - 29 U/L [facility] [place] Specimen Blood Narrative Performed At MULTIPLE TESTING PRIORITIES; ROUTINE TESTING TO RICH TROTTER Resulting Agency Comment Performing Organization Information: Site ID: RGA Name: [facility] Address: [address] [place] [phone] Director: Clay Díaz Performing Organization Address [facility] one [facility] Standardized Safety [address] [phone] 72 * Cyclic citrullinated peptide antibody, IgG (03/29/2019 11:49 AM COUNSEL) Cyclic <16 UNITS [facility] citrullin Comment: DI[facility]NOSTICS-[place] peptide Ab Reference Range ING II Negative: <20 Weak Positive: 20-39 Moderate Positive: 40-59 Strong Positive: >59 Specimen Blood Narrative Performed At FASTING:NO [facility] FASTING: NO Resulting Agency Comment Performing Organization Information: Site ID: [id number] Name: [facility] Address: [address] [place] [phone] Director: Dr. Clay Díaz Performing Organization Address [facility] one [facility] Standardized Safety[address] [address] II * C-reactive protein (03/29/2019 11:49 AM COUNSEL) Only the most recent of 2 results within the time period is included. CRP 15.9 (H) <8.0 mg/L [facility] [place] Specimen Blood Narrative Performed At FASTING:NO [facility] FASTING: NO Resulting Agency Comment Performing Organization Information: Site ID: RGA Name: [facility] Address: [address] [place] [phone] Director: Clay Díaz Performing Organization Address [facility] one [facility] Standardized Safety [address] [address] 72 * Folate level (03/29/2019 11:49 AM COUNSEL) [facility] Folate 11.8 ng/mL [facility] Comment: [facility] Reference Range Low: <3.4 Borderline: 3.4-5.4 Normal: >5.4 Specimen Blood Narrative Performed At FASTING:NO [facility] FASTING: NO Resulting Agency Comment Performing Organization Information: Site ID: [facility] Name: [facility] Address: [address] [place] [phone] Director: Clay Díaz Performing Organization Address [facility] one Number Standardized Safety [place] [phone] 72 * Vitamin B12 level (03/29/2019 11:49 AM COUNSEL) [facility] Vitamin B12 584 200 - 1,100 pg/mL [facility] [place] Specimen Blood Narrative Performed At FASTING:NO [facility] FASTING: NO Resulting Agency Comment Performing Organization Information: Site ID: [facility] Name: [facility] Address: [address] [place] [phone] Director: Clay Díaz Performing Organization Address [facility] one Number Standardized Safety [place] [address] * QuantiFERON-TB Gold Plus, 1 Tube (11/30/2018 11:23 AM CDT) [facility] Quantiferon TB NEGATIVE NEGATIVE [facility] gold plus Comment: DIAGNOSTICS Negative test result. M. MEIER tuberculosis complex infection unlikely. Quantiferon NIL 0.04 IU/mL [facility] [place] Quantiferon >10.00 IU/mL [facility] mitogen minus DIAGNOSTICS NIL [place] Quantiferon 0.00 IU/mL [facility] plus TB1 minus DIAGNOSTICS NIL [place] Quantiferon 0.01 IU/mL [facility] plus TB2 minus Comment: DIAGNOSTICS NIL The Nil tube value reflects [place] the background interferon gamma immune response of the patient's blood sample. This value has been subtracted from the patient's displayed TB and Mitogen results. Lower than expected results with the Mitogen tube prevent false-negative Quantiferon readings by detecting a patient with a potential immune suppressive condition and/or suboptimal pre-analytical specimen handling. The TB1 Antigen tube is coated with the M. tuberculosis-specific antigens designed to elicit responses from TB antigen primed CD4+ helper T-lymphocytes. The TB2 Antigen tube is coated with the M. tuberculosis-specific antigens designed to elicit responses from TB antigen primed CD4+ helper and CD8+ cytotoxic T-lymphocytes. For additional information, please refer to https://education.[employer]/faq/HUC817 (This link is being provided for informational/ educational purposes only.) Specimen Narrative Performed At FASTING:YES [facility] FASTING: YES Resulting Agency Comment Performing Organization Information: Site ID: A Name: [facility] Address: [address] [place] [phone] Director: Clay Díaz Performing Organization Address [facility] one Number Standardized Safety [place] [address] * NON HDL CHOLESTEROL (REFLEX [facility]) (11/30/2018 11:23 AM CDT) Non-HDL 111 <130 mg/dL (calc) [facility] cholesterol Comment: DIAGNOSTICS For patients with diabetes [place] plus 1 major ASCVD risk factor, treating to a non-HDL-C goal of <100 mg/dL (LDL-C of <70 mg/dL) is considered a therapeutic option. Specimen Narrative Performed At FASTING:YES [facility] FASTING: YES Resulting Agency Comment Performing Organization Information: Site ID: A Name: [facility] Address: [address] [place] [phone] Director: Clay Díaz Performing Organization Address [facility] one Number Standardized Safety [place] [phone] 72 * CHOL/HDLC RATIO (REFLEX [facility]) (11/30/2018 11:23 AM CDT) Cholesterol/HDL 2.9 <5.0 (calc) [facility] ratio [facility] [place] Specimen Narrative Performed At FASTING:YES [facility] FASTING: YES Resulting Agency Comment Performing Organization Information: Site ID: A Name: [facility] Address: [address] [place] [phone] Director: Clay Díaz Performing Organization Address [facility] one Number Standardized Safety [place] [address] [place] [address] 72 * LDL-CHOLESTEROL (REFLEX [facility]) (11/30/2018 11:23 AM CDT) LDL cholesterol 92 mg/dL (calc) [facility] calculated Comment: DIAGNOSTICS Reference range: <100 [place] Desirable range <100 mg/dL for primary prevention; <70 mg/dL for patients with CHD or diabetic patients with > or = 2 CHD risk factors. LDL-C is now calculated using the Brittany calculation, which is a validated novel method providing better accuracy than the Friedewald equation in the estimation of LDL-C. James DONOHUE et al. PARAM. 2013;310(54): 3608-5177 (http://education.[employer]/faq/CDK907) Specimen Narrative Performed At FASTING:YES [facility] FASTING: YES Resulting Agency Comment Performing Organization Information: Site ID: [id number] Name: [facility] Address: [address] [place] [phone] Director: Clay Díaz Performing Organization Address [facility]/Formerly [facility] one Number [facility] [place] [phone] * Triglycerides (11/30/2018 11:23 AM CDT) Triglycerides 94 <150 mg/dL [facility] [place] Specimen Narrative Performed At FASTING:YES [facility] FASTING: YES Resulting Agency Comment Performing Organization Information: Site ID: [id number] Name: [facility] Address: [address] [place] [phone] Director: Clay Díaz Performing Organization Address [facility]ly [facility] one Number [facility] [address] [phone] * HDL cholesterol (11/30/2018 11:23 AM CDT) HDL cholesterol 59 >50 mg/dL [facility] [place] Specimen Narrative Performed At FASTING:YES [facility] FASTING: YES Resulting Agency Comment Performing Organization Information: Site ID: A Name: [facility] Address: [address] [place] [phone] Director: Clay Díaz Performing Organization Address [facility]/Zipcode Ph one Number [facility] [place] [id number] [place], [place] [address] * Cholesterol (11/30/2018 11:23 AM CDT) Cholesterol, 170 <200 mg/dL [facility] [place] Specimen Narrative Performed At FASTING:YES [facility] FASTING: YES Resulting Agency Comment Performing Organization Information: Site ID: [facility] Name: [facility] Address: [address] [place] [phone] Director: Clay Díaz Performing Organization Address City/State/Zipcode Ph one Number [facility] [place] [address] [place] [phone] after 11/06/2018 Insurance Type Payer Benefit Subscriber ID Effective Phone Address Plan / Dates Group PPO BCBS BCBS xxxxxxxxxxxx [id number] CHOICE resent PPO/GOMEZ JERNIGAN PPO [id number] Advance Directives For more information, please contact: [phone] 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
--- NOTE | 2019-11-07 11:56 | NUR ---
rec'd pt in rm 2. placed on the monitor. rates pain 7/10. family at side.
--- NOTE | 2019-11-07 12:05 | NUR ---
DR. SHAY IN TO UPDATE PT.
[2019-11-07 12:06] LABS: INR 0.91; PROTHROMBIN TIME 12.7 seconds (11.9-14.5)
[2019-11-07 12:13] LABS: ALANINE AMINOTRANSFERASE 34 IU/L (0-55); ALBUMIN 4.1 g/dL (3.5-5.0); ALBUMIN/GLOBULIN RATIO 1.2 (0.8-2.0); ALKALINE PHOSPHATASE 95 IU/L (40-150); ANION GAP 14.5 mmol/L (8-16); BLOOD UREA NITROGEN 7 mg/dL (7-26); BUN/CREATININE RATIO 10 (6-25); CALCIUM 9.1 mg/dL (8.4-10.2); CARBON DIOXIDE 26 mmol/L (22-29); CHLORIDE 103 mmol/L (98-107); CREATINE KINASE 25 IU/L (29-168); CREATININE, SERUM 0.72 mg/dL (0.57-1.11); EST GLOMERULAR FILTRATION RATE > 60 ML/MIN (60-); GLUCOSE 143 mg/dL (74-118); POTASSIUM 3.5 mmol/L (3.5-5.1); SODIUM 140 mmol/L (136-145)
[2019-11-07 12:33] LABS: THYROID STIMULATING HORMONE 1.193 uIU/mL (0.350-4.940)
--- NOTE | 2019-11-07 12:35 | Diagnostic Imaging Report ---
TECHNIQUE: Frontal view of the chest. INDICATION: ^LEUKOCYTOSIS, CP ^[id number] ^1215 COMPARISON: None DISCUSSION: Limited evaluation due to portable technique. Lines and hardware: Overlying EKG leads are noted Heart and mediastinum: Cardia mediastinal silhouette, pulmonary vascularity and mediastinal contours are within normal limits. Trachea projects midline. Lungs and pleura: No focal airspace consolidation. No pleural effusion. No pneumothorax. Soft tissues and bones: No acute abnormality. IMPRESSION: Negative for acute intrathoracic process. Signed by: Aaron Olea MD on 11/07/2019 12:31 PM
--- NOTE | 2019-11-07 12:55 | Emergency Department Note ---
History of Present Illnes History of Present Illness Chief Complaint: General Medicine Complaints History of Present Illness This is a 44 year old female Pt sent from her pcp's office for WBC ~19K on bloodwork drawn yesterday. Pt had been feeling "run down." Pt states multiple covid symptoms (achy, subj F/C, no cough/SOB), but also has ulcerative colitis and believes it may be related. Pt aaox4. ambulatory. Very pleasant in triage. Historian: Patient, Family Member Arrival Mode: Car Manager Talent Acquisition Required: No Onset (how long ago): day(s) Radiation: Reports non-radiation Severity: mild Onset quality: gradual Timing of current episode: intermittent Progression: unchanged Chronicity: new Context: Denies recent illness Relieving factors: none Exacerbating factors: none Associated symptoms: Reports fever/chills, Reports malaise, Reports other (achy all over); Denies chest pain, Denies cough, Denies nausea/vomiting, Denies shortness of breath Past Medical/Family History Physician Review I have reviewed the patient's past medical and family history. Any updates have been documented here. Past Medical History Recent Fever: No Clinical Suspicion of Infectio: No New/Unexplained Change in Ment: No Other Medical History: ULCERATIVE COLITIS Past Surgical History: Hysterectomy Social History Smoking Cessation: Never Smoker Counseling Performed: No Alcohol Use: None Any Illegal Drug Use: No TB Exposure/Symptoms: No Physically hurt or threatened: No Family History Family history of heart diseas: No Other Any Pre-Existing Lines (PICC,: No Review of Systems Review of Systems Constitutional: Reports as per HPI, Reports chills, Reports fever, Reports malaise EENTM: Reports no symptoms Cardiovascular: Reports no symptoms Respiratory: Reports no symptoms Gastrointestinal: Reports no symptoms, Reports abdominal pain (had mild abd cramping yesterday, no pain currently) Genitourinary: Reports no symptoms Musculoskeletal: Reports no symptoms Integumentary: Reports no symptoms Neurological: Reports no symptoms Psychological: Reports no symptoms Endocrine: Reports no symptoms Hematological/Lymphatic: Reports no symptoms Physical Exam Related Data Allergies: Coded Allergies: No Known Allergies (Unverified , 11/07/19) Triage Vital Signs Vital Signs Date Time Temp Pulse Resp B/P (MAP) Pulse Ox O2 Delivery O2 Flow Rate FiO2 11/07/19 11:21 98.4 107 16 136/98 99 Room Air Vital signs reviewed: Yes Physical Exam CONSTITUTIONAL Constitutional: Present well-developed, Present well-nourished HENT HENT: Present normocephalic, Present atraumatic, Present oropharynx clear/moist, Present oropharynx normal, Present nose normal HENT L/R: Present left ext ear normal, Present right ext ear normal EYES Eyes: Reports PERRL, Reports conjunctivae normal NECK Neck: Present ROM normal PULMONARY Pulmonary: Present effort normal, Present breath sounds normal; Absent respiratory distress CARDIOVASCULAR Cardiovascular: Present regular rhythm, Present heart sounds normal, Present capillary refill normal, Present normal rate; Absent murmur GASTROINTESTINAL Abdominal: Present soft, Present nontender, Present bowel sounds normal GENITOURINARY Genitourinary: Present exam deferred SKIN Skin: Present warm, Present dry MUSCULOSKELETAL Musculoskeletal: Present ROM normal NEUROLOGICAL Neurological: Present alert, Present oriented x 3, Present no gross motor or sensory deficits PSYCHOLOGICAL Psychological: Present mood/affect normal, Present judgement normal Results Laboratory Result Diagram: 11/07/19 1123 11/07/19 1123 Laboratory Laboratory Tests Test 11/07/19 11:23 White Blood Count 12.07 x10e3/uL (4.8-10.8) Red Blood Count 4.58 x10e6/uL (3.6-5.1) Hemoglobin 13.1 g/dL (12.0-16.0) Hematocrit 40.3 % (34.2-44.1) Mean Corpuscular Volume 88.0 fL (81-99) Mean Corpuscular Hemoglobin 28.6 pg (28-32) Mean Corpuscular Hemoglobin Concent 32.5 g/dL (31-35) Red Cell Distribution Width 13.8 % (11.7-14.4) Platelet Count 415 x10e3/uL (140-360) Neutrophils (%) (Auto) 59.2 % (38.7-80.0) Lymphocytes (%) (Auto) 20.4 % (18.0-39.1) Monocytes (%) (Auto) 5.7 % (4.4-11.3) Eosinophils (%) (Auto) 13.4 % (0.0-6.0) Basophils (%) (Auto) 0.7 % (0.0-1.0) Neutrophils # (Auto) 7.1 (2.1-6.9) Lymphocytes # (Auto) 2.5 (1.0-3.2) Monocytes # (Auto) 0.7 (0.2-0.8) Eosinophils # (Auto) 1.6 (0.0-0.4) Basophils # (Auto) 0.1 (0.0-0.1) Absolute Immature Granulocyte (auto 0.07 x10e3/uL (0-0.1) Prothrombin Time 12.7 seconds (11.9-14.5) Prothromb Time International Ratio 0.91 Activated Partial Thromboplast Time 36.0 seconds (23.8-35.5) Sodium Level 140 mmol/L (136-145) Potassium Level 3.5 mmol/L (3.5-5.1) Chloride Level 103 mmol/L (98-107) Carbon Dioxide Level 26 mmol/L (22-29) Anion Gap 14.5 mmol/L (8-16) Blood Urea Nitrogen 7 mg/dL (7-26) Creatinine 0.72 mg/dL (0.57-1.11) Estimat Glomerular Filtration Rate > 60 ML/MIN (60-) BUN/Creatinine Ratio 10 (6-25) Glucose Level 143 mg/dL (74-118) Calcium Level 9.1 mg/dL (8.4-10.2) Total Bilirubin 0.5 mg/dL (0.2-1.2) Aspartate Amino Transf (AST/SGOT) 22 IU/L (5-34) Alanine Aminotransferase (ALT/SGPT) 34 IU/L (0-55) Alkaline Phosphatase 95 IU/L (40-150) Creatine Kinase 25 IU/L (29-168) Creatine Kinase MB 0.50 ng/mL (0-5.0) Troponin I 0.003 ng/mL (0-0.300) B-Type Natriuretic Peptide < 10.0 pg/mL (0-100) Total Protein 7.4 g/dL (6.5-8.1) Albumin 4.1 g/dL (3.5-5.0) Globulin 3.3 g/dL (2.3-3.5) Albumin/Globulin Ratio 1.2 (0.8-2.0) Thyroid Stimulating Hormone (TSH) 1.193 uIU/mL (0.350-4.940) Lab results reviewed: Yes Imaging Imaging results reviewed: Yes Impressions TECHNIQUE: Frontal view of the chest. INDICATION: ^LEUKOCYTOSIS, CP ^[id number] ^1215 COMPARISON: None DISCUSSION: Limited evaluation due to portable technique. Lines and hardware: Overlying EKG leads are noted Heart and mediastinum: Cardia mediastinal silhouette, pulmonary vascularity and mediastinal contours are within normal limits. Trachea projects midline. Lungs and pleura: No focal airspace consolidation. No pleural effusion. No pneumothorax. Soft tissues and bones: No acute abnormality. IMPRESSION: Negative for acute intrathoracic process. Signed by: Aaron Olea MD on 11/07/2019 12:31 PM Procedures 12 Lead ECG Interpretation ECG Interpretation : ECG: ECG 1 Manager Talent Acquisition: Interpreted by ED physician Date: Nov 07, 2019 Time: 11:28 Rhythm: sinus rhythm Rate: normal BPM: 89 QRS axis: normal ST segments normal: Yes T waves normal: Yes Clinical Impression: normal ECG Assessment & Plan Medical Decision Making MDM pt with c/o malaise, subj F/C, achy all over, saw PCP yest who did bloodwork and told to come for WBC 19K - pt does not appear acutely ill, exam normal - check CBC, chem's, UA, CXR, covid swab - r/o leukocytosis, pneumonia, [id number], UTI. Pt is on Mesalamine and also Budesonide (steroid which can elevate WBC). Reassessment Reassessment DC HOME, VILMA ODT, F/U PCP, RTED PRN Assessment & Plan Final Impression: (1) Malaise (2) Nausea Depart Disposition: HOME, SELF-CARE Last Vital Signs Date Time Temp Pulse Resp B/P (MAP) Pulse Ox O2 Delivery O2 Flow Rate FiO2 11/07/19 11:55 99.3 89 13 130/89 99 Room Air Medications in the ED Pantoprazole Sodium 40 mg ONCE IV Last administered on 11/07/19at 11:54; Admin Dose 40 MG; Start 11/07/19 at 11:30; Stop 11/07/19 at 12:00; Status DC Ondansetron HCl 4 mg ONCE IV Last administered on 11/07/19at 11:54; Admin Dose 4 MG; Start 11/07/19 at 11:30; Stop 12/07/19 at 12:00 Ketorolac Tromethamine 30 mg ONCE ONCE IV Last administered on 11/07/19at 11:54; Admin Dose 30 MG; Start 11/07/19 at 11:45; Stop 11/07/19 at 11:46; Status DC Sodium Chloride 1,000 ml @ 0 mls/hr Q0M STAT IV Last administered on 11/07/19at 11:54; Admin Dose 999 MLS/HR; Start 11/07/19 at 11:24; Stop 11/07/19 at 11:29; Status DC ELIZ SHAY MD Nov 07, 2019 12:55
[2019-11-07 13:19] LABS: BILIRUBIN,URINE NEGATIVE (NEGATIVE); CLARITY,URINE CLEAR (CLEAR); COLOR,URINE YELLOW (YELLOW); KETONES,URINE NEGATIVE (NEGATIVE); LEUKOCYTE ESTERASE ,URINE NEGATIVE (NEGATIVE); NITRITE,URINE NEGATIVE (NEGATIVE); PROTEIN,URINE DIPSTICK NEGATIVE (NEGATIVE); URINE UROBILINOGEN 0.2 mg/dL (0.2 - 1)
[2019-11-07 13:22] LABS: BACTERIA,URINE RARE /HPF; EPITHELIAL CELLS,URINE MODERATE /LPF; RBC,URINE 0-5 /HPF (0-5); WBC,URINE (MAN) 0-5 /HPF (0-5)
[2019-11-07] MEDS ORDERED: HYDROCODONE/APAP 7.5MG-325MG 1 EA TAB PO ONE (13:30)
[2019-11-08] MEDS ORDERED: CELEBREX100 MG PO (06:11)
[2019-11-08] MEDS ORDERED: PANTOPRAZOLE SO40 MG PO (06:12)
[2019-11-08] MEDS ORDERED: [UNRECOGNIZED DRUG - OTHER] PO (06:13)
[2019-11-08] MEDS ORDERED: MESALAMINE800 MG PO (06:18)
[2019-11-08] MEDS ORDERED: VITAMIN D250 MCG PO (06:27)
== END 2019-11-07 13:54 | disposition home or self-care (01) ==
LOC: ER 11:36
DX: R53.81 Other malaise (principal); R11.0 Nausea; Z87.19 Personal history of other diseases of the digestive system; Z11.59 Encounter for screening for other viral diseases
CPT/HCPCS: 36415; 71045; 80053; 81001; 82550; 82553; 83880; 84443; 84484; 85025; 85610; 85730; 87040; 87086; 93005; 99284; C9113; J1885; J2405; J7030; U0002

== ENCOUNTER 2019-11-07 21:26 | Inpatient (IN) | payer BC ==
[~2019-11-07] VITALS: Ht 160 cm; Wt 80.0 kg
[2019-11-07 21:59] LABS: BASOPHILS # (AUTO) 0.1 (0.0-0.1); BASOPHILS % 0.5 % (0.0-1.0); EOSINOPHILS # (AUTO) 1.5 (0.0-0.4); EOSINOPHILS % 8.8 % (0.0-6.0); HEMATOCRIT 38.6 % (34.2-44.1); HEMOGLOBIN 12.4 g/dL (12.0-16.0); LYMPHOCYTES # (AUTO) 2.4 (1.0-3.2); LYMPHOCYTES % 14.4 % (18.0-39.1); MEAN CORPUSCULAR HEMOGLOBIN 28.8 pg (28-32); MEAN CORPUSCULAR HGB CONC 32.1 g/dL (31-35); MEAN CORPUSCULAR VOLUME 89.8 fL (81-99); MONOCYTES % 5.9 % (4.4-11.3); NEUTROPHILS # (AUTO) 11.7 (2.1-6.9); NEUTROPHILS % 69.6 % (38.7-80.0); PLATELET COUNT 392 x10e3/uL (140-360); RED CELL DISTRIBUTION WIDTH 13.8 % (11.7-14.4)
[2019-11-07 22:10] LABS: INR 0.9; PROTHROMBIN TIME 12.6 seconds (11.9-14.5)
[2019-11-07] MEDS ORDERED: CEFTRIAXONE SOD 1 GM/NS 50 ML 50 ML IV ONE (22:15)
[2019-11-07] MEDS ORDERED: SODIUM CHLORIDE 0.9% 1000ML 1,000 ML IV ONE (22:15)
[2019-11-07] MEDS ORDERED: ACETAMINOPHEN 325 MG TAB PO ONE (22:15)
[2019-11-07 22:17] LABS: ALANINE AMINOTRANSFERASE 32 IU/L (0-55); ALBUMIN/GLOBULIN RATIO 1.3 (0.8-2.0); ALKALINE PHOSPHATASE 90 IU/L (40-150); ANION GAP 12.8 mmol/L (8-16); BLOOD UREA NITROGEN 9 mg/dL (7-26); BUN/CREATININE RATIO 13 (6-25); CALCIUM 8.7 mg/dL (8.4-10.2); CARBON DIOXIDE 26 mmol/L (22-29); CHLORIDE 105 mmol/L (98-107); CREATININE, SERUM 0.72 mg/dL (0.57-1.11); EST GLOMERULAR FILTRATION RATE > 60 ML/MIN (60-); GLUCOSE 102 mg/dL (74-118); POTASSIUM 3.8 mmol/L (3.5-5.1); SODIUM 140 mmol/L (136-145)
[2019-11-07 22:18] LABS: AMYLASE 80 U/L (25-125); LIPASE 57 U/L (8-78)
--- NOTE | 2019-11-07 22:36 | Emergency Department Note ---
History of Present Illnes History of Present Illness Chief Complaint: Chest Pain History of Present Illness This is a 44 year old female PRESENTS TO ED WITH REPORT OF SEVERE HEADACHE X4 DAYS AND INTERMITTENT MID STERNAL CHEST PAIN X1 DAY; PT SEEN IN THIS ED EARLIER TODAY DUE TO BEING SENT BY PCP FOR ELEVATED WBC, PT NOTED TO BE FEBRILE ON ARRIVAL. HAD A NEGATIVE COVID TEST HERE EARLIER TODAY . PT ALSO HAS H/O ULCERATIVE COLITIS AND HAS BEEN HAVING DIARRHEA WELL FOR PAST COUPLE OF DAYS Historian: Patient Arrival Mode: Car Service Specialist Required: No Onset (how long ago): day(s) (4) Location: HEAD, CHEST Quality: PAIN Radiation: Reports non-radiation Severity: moderate Onset quality: sudden Duration (how long): day(s) (4) Timing of current episode: constant Progression: unchanged Chronicity: new Context: Denies recent illness, Denies recent surgery, Denies trauma/injury Relieving factors: none Associated symptoms: Reports chest pain, Reports fever/chills, Reports headaches, Reports other (DIARRHEA) Treatments prior to arrival: none Past Medical/Family History Physician Review I have reviewed the patient's past medical and family history. Any updates have been documented here. Past Medical History Recent Fever: No Clinical Suspicion of Infectio: No New/Unexplained Change in Ment: No Other Medical History: ULCERATIVE COLITIS Past Surgical History: Hysterectomy Social History Smoking Cessation: Never Smoker Alcohol Use: None Any Illegal Drug Use: No Family History Family history of heart diseas: No Review of Systems Review of Systems Constitutional: Reports as per HPI EENTM: Reports no symptoms Cardiovascular: Reports as per HPI Respiratory: Reports no symptoms Gastrointestinal: Reports no symptoms Genitourinary: Reports no symptoms Musculoskeletal: Reports no symptoms Integumentary: Reports no symptoms Neurological: Reports as per HPI Psychological: Reports no symptoms Endocrine: Reports no symptoms Hematological/Lymphatic: Reports no symptoms Physical Exam Related Data Allergies: Coded Allergies: No Known Allergies (Unverified , 11/07/19) Triage Vital Signs Vital Signs Date Time Temp Pulse Resp B/P (MAP) Pulse Ox O2 Delivery O2 Flow Rate FiO2 11/07/19 21:35 99.7 118 17 126/82 100 Room Air Vital signs reviewed: Yes Physical Exam CONSTITUTIONAL Constitutional: Present well-developed, Present well-nourished; Absent distressed HENT HENT: Present normocephalic, Present atraumatic, Present oropharynx clear/moist, Present nose normal HENT L/R: Present left ext ear normal, Present right ext ear normal EYES Eyes: Reports PERRL, Reports conjunctivae normal NECK Neck: Present ROM normal, Present supple, Present other (NO MENINGISMUS); Absent thyromegaly, Absent tracheal deviation, Absent stridor, Absent JVD, Absent cervical adenopathy, Absent carotid bruit PULMONARY Pulmonary: Present effort normal, Present breath sounds normal CARDIOVASCULAR Cardiovascular: Present regular rhythm, Present heart sounds normal, Present capillary refill normal, Present tachycardia GASTROINTESTINAL Abdominal: Present soft, Present nontender, Present bowel sounds normal GENITOURINARY Genitourinary: Present exam deferred SKIN Skin: Present warm, Present dry MUSCULOSKELETAL Musculoskeletal: Present ROM normal NEUROLOGICAL Neurological: Present alert, Present oriented x 3, Present no gross motor or sensory deficits PSYCHOLOGICAL Psychological: Present mood/affect normal, Present judgement normal Results Laboratory Result Diagram: 11/07/196 11/07/196 Laboratory Laboratory Tests Test 11/07/19 21:46 White Blood Count 16.80 x10e3/uL (4.8-10.8) Red Blood Count 4.30 x10e6/uL (3.6-5.1) Hemoglobin 12.4 g/dL (12.0-16.0) Hematocrit 38.6 % (34.2-44.1) Mean Corpuscular Volume 89.8 fL (81-99) Mean Corpuscular Hemoglobin 28.8 pg (28-32) Mean Corpuscular Hemoglobin Concent 32.1 g/dL (31-35) Red Cell Distribution Width 13.8 % (11.7-14.4) Platelet Count 392 x10e3/uL (140-360) Neutrophils (%) (Auto) 69.6 % (38.7-80.0) Lymphocytes (%) (Auto) 14.4 % (18.0-39.1) Monocytes (%) (Auto) 5.9 % (4.4-11.3) Eosinophils (%) (Auto) 8.8 % (0.0-6.0) Basophils (%) (Auto) 0.5 % (0.0-1.0) Neutrophils # (Auto) 11.7 (2.1-6.9) Lymphocytes # (Auto) 2.4 (1.0-3.2) Monocytes # (Auto) 1.0 (0.2-0.8) Eosinophils # (Auto) 1.5 (0.0-0.4) Basophils # (Auto) 0.1 (0.0-0.1) Absolute Immature Granulocyte (auto 0.13 x10e3/uL (0-0.1) Prothrombin Time 12.6 seconds (11.9-14.5) Prothromb Time International Ratio 0.90 Activated Partial Thromboplast Time 35.0 seconds (23.8-35.5) Sodium Level 140 mmol/L (136-145) Potassium Level 3.8 mmol/L (3.5-5.1) Chloride Level 105 mmol/L (98-107) Carbon Dioxide Level 26 mmol/L (22-29) Anion Gap 12.8 mmol/L (8-16) Blood Urea Nitrogen 9 mg/dL (7-26) Creatinine 0.72 mg/dL (0.57-1.11) Estimat Glomerular Filtration Rate > 60 ML/MIN (60-) BUN/Creatinine Ratio 13 (6-25) Glucose Level 102 mg/dL (74-118) Lactic Acid Level 1.2 mmol/L (0.5-2.0) Calcium Level 8.7 mg/dL (8.4-10.2) Total Bilirubin 0.4 mg/dL (0.2-1.2) Aspartate Amino Transf (AST/SGOT) 22 IU/L (5-34) Alanine Aminotransferase (ALT/SGPT) 32 IU/L (0-55) Alkaline Phosphatase 90 IU/L (40-150) Total Protein 7.1 g/dL (6.5-8.1) Albumin 4.0 g/dL (3.5-5.0) Globulin 3.1 g/dL (2.3-3.5) Albumin/Globulin Ratio 1.3 (0.8-2.0) Amylase Level 80 U/L (25-125) Lipase 57 U/L (8-78) Lab results reviewed: Yes Imaging Imaging results reviewed: Yes Impressions EXAMINATION: Head CT without contrast. HISTORY:Headache. COMPARISON:None. TECHNIQUE: Multidetector axial images were obtained from the foramen magnum to the vertex without contrast. The images were reconstructed using brain and bone algorithms. Thin section brain images were reformatted into coronal and sagittal planes. Dose modulation, iterative reconstruction, and/or weight based adjustment of the mA/kV was utilized to reduce the radiation dose to as low as reasonably achievable. Intravenous contrast: None IMAGE QUALITY: Acceptable. FINDINGS: Skull/scalp: No lytic or blastic. lesions. No surgical changes. Parenchyma: No abnormal density. No acute hemorrhage, mass or acute major vascular territorial infarct. Arteries: No density suggestive of thrombosis. Dural sinuses: No abnormal density suggestive of thrombosis. Ventricles: No hydrocephalus or displacement. Extra-axial spaces: Nonspecific dystrophic calcifications along the anterior falx, parafalcine region and anterior frontal extra-axial space. Brain volume: Normal for age. Craniocervical junction: No mass, Chiari malformation, or basilar invagination. Sella: No mass. Paranasal/mastoid sinuses: Minimal mucosal thickening in bilateral sphenoid sinus. IMPRESSION: No acute intracranial abnormality. Signed by: Dr. Tameka Kate M.D. on 11/08/2019 12:23 AM Dictated By: TAMEKA KATE MD Transcribed By: ZEB on 11/08/1922 COPY TO: VILMA MENEZES MD~ Procedure: [id number] CT/CT CHEST W Exam Date: 11/07/19 Exam Time: 2349 REPORT STATUS: Signed EXAM: CT Chest WITH contrast 11/07/2019 11:50 PM INDICATION: ^PE PROTOCOL ^[id number] ^2350 ^Y COMPARISON: None TECHNIQUE: Chest was scanned utilizing a multidetector helical scanner from the lung apex through the level of the adrenal glands with administration of IV contrast. Coronal and sagittal reformations were obtained. Routine protocol was performed. IV CONTRAST: 100 mL of Omnipaque 300 COMPLICATIONS: None RADIATION DOSE: Total DLP: 557.78 mGy*cm Estimated effective dose: (DLP x 0.014 x size factor) mSv CTDIvol has been reviewed. It is below the limits set by the Radiation Protocol Committee (RPC). Dose modulation, iterative reconstruction, and/or weight based adjustment of the mA/kV was utilized to reduce the radiation dose to as low as reasonably achievable. FINDINGS: LINES/ TUBES: None. LUNGS: No consolidation. No pleural effusion. No pneumothorax. Mild dependent atelectasis. HEART AND MEDIASTINUM: The thyroid gland is normal. No mediastinal, hilar or axillary lymphadenopathy. The heart is mildly enlarged. No pericardial effusion. The thoracic aorta is normal caliber. The main pulmonary artery is normal caliber. Mildly limited evaluation for pulmonary emboli at the subsegmental level due to borderline optimal opacification of the pulmonary arteries and mild respiratory motion. Questionable filling defects in a couple subsegmental pulmonary arteries. For reference, series #2 image 35 in the left upper lobe. Right lower lobe image #54. Otherwise, no filling defects to the segmental level. No CT evidence of right heart strain. UPPER ABDOMEN: Small hiatal hernia. Hepatic steatosis. BONES: The visualized bony thorax is within normal limits. SOFT TISSUES: Unremarkable. IMPRESSION: 1. Mildly limited evaluation of the subsegmental pulmonary arteries. Questionable tiny filling defects in a couple subsegmental pulmonary arteries. Otherwise, no pulmonary emboli to the segmental level. No CT evidence of right heart strain. 2. Mild cardiomegaly. No edema. 3. Hepatic steatosis. Signed by: Veronika Rodriguez MD on 11/08/2019 12:56 AM Dictated By: VERONIKA RODRIGUEZ MD Transcribed By: ZEB on 11/08/1955 COPY TO: VILMA MENEZES MD~ Procedures 12 Lead ECG Interpretation ECG Interpretation : ECG: ECG 1 Service Specialist: Interpreted by ED physician Date: Nov 07, 2019 Time: 21:37 Rhythm: sinus tachycardia Rate: tachycardia BPM: 114 QRS axis: normal ST segments normal: Yes T waves normal: Yes Other findings: no other findings Clinical Impression: non-specific ECG Assessment & Plan Medical Decision Making MDM PT WITH FEVER, HEADACHES, CHEST PAIN, BODY ACHES CBC, CMP, LACTIC ACID, BLOOD CULTURES, UA, CT BRAIN , CT CHEST EKG, CARDIAC ENZYMES ORDERED TO EVAL FOR PNEUMONIA, SEPSIS, COVID 19, UTI, INTRACRANIAL ABNORMALITY, NS 1 LITER IV BOLUS ORDERED ROCEPHIN 1 GRAM IV ORDERED TYLENOL 650 MG PO ORDERED I SPOKE WITH DR CUEVAS, ADMIT TO INPATIENT Assessment & Plan Final Impression: (1) Fever (2) Diarrhea (3) Chest pain (4) Leukocytosis Depart Disposition: ADMITTED Last Vital Signs Date Time Temp Pulse Resp B/P (MAP) Pulse Ox O2 Delivery O2 Flow Rate FiO2 11/07/19 22:14 100.6 117 12 130/90 100 Room Air Medications in the ED Acetaminophen 650 mg ONCE ONCE PO ; Start 11/07/19 at 22:15; Stop 11/07/19 at 22:23; Status DC Ceftriaxone Sodium 50 ml @ 100 mls/hr ONCE ONCE IV ; Start 11/07/19 at 22:15; Stop 11/07/19 at 22:44 Sodium Chloride 1,000 ml @ 999 mls/hr Q1H1M ONCE IV ; Start 11/07/19 at 22:15; Stop 11/07/19 at 23:15 VILMA MENEZES MD Nov 07, 2019 22:36
[2019-11-07 22:47] LABS: BILIRUBIN,URINE NEGATIVE (NEGATIVE); CLARITY,URINE CLEAR (CLEAR); COLOR,URINE YELLOW (YELLOW); KETONES,URINE NEGATIVE (NEGATIVE); LEUKOCYTE ESTERASE ,URINE NEGATIVE (NEGATIVE); NITRITE,URINE NEGATIVE (NEGATIVE); PROTEIN,URINE DIPSTICK NEGATIVE (NEGATIVE); URINE UROBILINOGEN 0.2 mg/dL (0.2 - 1)
--- OUTSIDE RECORDS SUMMARY | 2019-11-07 22:54 | XMS REPORT | Continuity of Care Document ---
Author Author [facility] t Organization [facility] Address [address] [place] [address] [address]. [address] [place] [address] Phone Unavailable Care Team Providers Care Subwarehouse Supervisor Name Role Phone MD VICTORIA ILIA PCP Unavailable SWEET, A LAIRD Attphys Unavailable Vital, Mackenzie Attphys Unavailable Ivania Brito Attphys [phone] [facility] NILDA, Any Attphys Unavailable Jamee Moran MD Attphys [phone] Veronika Adams MA Attphys Unavailable Anito, B Binca Attphys Unavailable TRICHE, MILICENT Attphys Unavailable TRICHE, MILICENT Admphys Unavailable Payers Payer Name Policy Type Policy Number Effective Date Expiration Date S john [employer] [place] Ppo [id number] [facility] BCBSBCBS CHOICE PPO/FEDERAL EMPL PPOxxxxxxxxxxxx2015-Pre sentPPO xxxxxxxxxxxx 2015 00:00:00 Hardeep Wellsist Problems Condition Name Condition Details Condition Category Status Onset Date Resolution Date Last Treatment Date Treating Clinician Comments Source Ulcerative colitis Ulcerative colitis Disease Active 2017-11-29 00:00:0 0 Hardeep Wellsist Malaise Problem Active [facility] Nausea Problem Active [facility] Allergies, Adverse Reactions, Alerts This patient has no known allergies or adverse reactions. Family History Family Member Diagnosis Comments Start Date Stop Date Source Natural brother No Known Problems Gordon Nuñez Natural father No Known Problems Sakshi Nuñez Maternal grandfather No Known Problems Hardeep Taoism Maternal grandmother No Known Problems Hardeep Taoism Natural mother No Known Problems Sakshi janett Wellsist Other No Known Problems Hardeep Nuñez Paternal grandfather No Known Problems Hardeep Wellsist Paternal grandmother No Known Problems Hardeep Nuñez Natural sister No Known Problems Sakshi Nuñez Social History Social Habit Start Date Stop Date Quantity Comments Source Sex Assigned At Sakshi Nuñez Alcohol intake 2019-03-29 00:00:00 2019-03-29 00:00:00 Current [...] 50,000 unit capsule 2019-08-28 00:00 :00 Yes [id number] Q7D Take 1 capsule (50,000 Units total) [...] adjuvant AS01B, PF,vial 1 of 2 suspension 2018-0203 00:00:00 2018-11-24 23:59:00 No Need for shingles [...] 2018-08-17 00:00: 00 2019-08-28 00:00:00 No 1600mg [id number] Take 2 tablets (1,600 mg total) by mouth 3 (three) times a day. Hardeep Nuñez vedolizumab (ENTYVIO) 300 mg recon soln IV solution 2017-02 00:00:00 Yes Infuse 300mg IV every 8 weejs Hardeep Nuñez ergocalciferol (VITAMIN D2) 50,000 unit capsule 2017-11-30 00:00:00 2018-12-23 00:00:00 No Vitamin D deficiency [id number] Q7D Take 1 capsule (50,000 Units total) [...] Name Observation Time Observation Value Comments Source Weight 2019-11-07 11:21:00 165 [lb_av] [facility] BMI (Body Mass Index) 2019-11-07 11:21:00 29.2 kg/m2 [facility] Systolic blood pressure 2019-03-29 10:58:00 119 mm[Hg] Hardeep Nuñez Diastolic blood pressure 2019-03-29 10:58:00 81 mm[Hg] Hardeep Nuñez Heart rate 2019-03-29 10:58:00 88 /min Hardeep Nuñez Body height 2019-03-29 10:58:00 160 cm Hardeep Nuñez Body weight 2019-03-29 10:58:00 74.844 kg Hardeep Nuñez BMI 2019-03-29 10:58:00 29.23 kg/m2 [facility] Procedures Procedure Date / Time Performed Performing Clinician Sourc e CBC WITH PLATELET AND DIFFERENTIAL 2019-11-06 16:57:00 Torrey Jamalbrooke Mark [facility] COMPREHENSIVE METABOLIC PANEL 2019-11-06 16:57:00 Torrey Jamalbrooke Mancuso [facility] C-REACTIVE PROTEIN 2019-11-06 16:57:00 TorreyChilangose [place] [facility] SEDIMENTATION RATE 2019-11-06 16:57:00 TorreyChilango Paulose [place] [facility] VITAMIN D 25 HYDROXY LEVEL 2019-11-06 16:57:00 Torrey, Chilango Zambrano ulose [place] [facility] FERRITIN LEVEL 2019-11-06 16:57:00 Torrey Chilango Florezt [facility] TOTAL IRON BINDING CAPACITY 2019-11-06 16:57:00 Torrey Chilango moniquelo [place] [facility] CBC WITH PLATELET AND DIFFERENTIAL 2019-03-29 11:49:00 Milena Reagan [facility] COMPREHENSIVE METABOLIC PANEL 2019-03-29 11:49:00 Mare Reagan [facility] C-REACTIVE PROTEIN 2019-03-29 11:49:00 MeraryMilena [facility]ism SEDIMENTATION RATE 2019-03-29 11:49:00 MeraryMilena Taoism FERRITIN LEVEL 2019-03-29 11:49:00 Milena Reagan [facility]ism FOLATE LEVEL 2019-03-29 11:49:00 Milena Reagan ton [facility]ism TOTAL IRON BINDING CAPACITY 2019-03-29 11:49:00 Milena Reagan [facility] VITAMIN B12 LEVEL 2019-03-29 11:49:00 [facility] VITAMIN D 25 HYDROXY LEVEL 2019-03-29 11:49:00 Milena Reagan Taoism CYCLIC CITRULLINATED PEPTIDE AB, IGG 2019-03-29 11:49:00 Milena Robison [facility] CBC WITH PLATELET AND DIFFERENTIAL 2018-11-30 11:23:00 TorreyChilango [place] [facility] COMPREHENSIVE METABOLIC PANEL 2018-11-30 11:23:00 Chilango Moran Taoism SEDIMENTATION RATE 2018-11-30 11:23:00 Chilango Moran [facility]ism C-REACTIVE PROTEIN 2018-11-30 11:23:00 Chilango Moran [facility] HDL CHOLESTEROL 2018-11-30 11:23:00 Chilango Moran Reinier on [facility] TRIGLYCERIDES 2018-11-30 11:23:00 Chilango Moran Vikkitisha on [facility] LDL-CHOLESTEROL (REFLEX QUEST) 2018-11-30 11:23:00 Cindy Moran Hardeep Nuñez NON HDL CHOLESTEROL (REFLEX QUEST) 2018-11-30 11:23:00 Chilango Moran Hardeep Wellsist QUANTIFERON-TB GOLD PLUS, 1 TUBE 2018-11-30 11:23:00 Chilango Moran Hardeep Nuñez Plan of Care Planned Activity Planned Date Details Comments Source Future Scheduled Test 2019-10-24 00:00:00 INFLUENZA VACCINE [code = INFLUENZA VACCINE] Hardeep Nuñez Future Scheduled Test 1996-02-04 00:00:00 Screening for maci gnant neoplasm of cervix (procedure) [code = 887196120] Hardeep Nair t Instructions Fatigue [facility] Encounters Start Date/Time End Date/Time Encounter Type Admission Type Attendi [facility] Care Department Encounter ID Source 2019-11-07 11:36:00 2019-11-07 11:36:00 Registered Emergency Room 1 ELIZ SHAY [facility] [id number] I [facility] 2019-08-28 00:00:00 2019-08-28 00:00:00 Outpatient BOBBY MORAN Y [facility] [id number] Hardeep Nuñez 2016-11-02 15:12:00 2016-11-02 23:59:00 Outpatient Alison LALA [facility] [id number] [facility] Results Test Description Test Time Test Comments Results Result Comments Source Comprehensive metabolic panel 2019-11-07 17:57:00 Test Item Glucose (test code = 2345-7) 126 mg/dL 65-99 H Fasting reference interval For someone without known diabetes, a glucosevalue >125 mg/dL indicates that they may havediabetes and this should be confirmed with afollow-up test. BUN (test code = 3094-0) 9 mg/dL 7-25 Creatinine (test code = 2160-0) 0.65 mg/dL 0.5-1.1 EGFR Non-Afr. Sudanese (test code = 2775) 108 > OR = 60 mL /min/1.73m2 EGFR (test code = 72213-8) 125 > OR = 60 mL/min/1.73m2 BUN/creatinine ratio (test code = 3097-3) NOT APPLICABLE 6- 22 (bryan c) Sodium (test code = 2951-2) 137 mmol/L 135-146 Potassium (test code = 2823-3) 3.7 mmol/L 3.5-5.3 Chloride (test code = 5-0) 98 mmol/L 98-110 CO2 (test code = 2027-9) 30 mmol/L 20-32 Calcium (test code = 63948-5) 9.1 mg/dL 8.6-10.2 Protein (test code = 2885-2) 7.1 g/dL 6.1-8.1 Albumin, S (test code = 1751-7) 4.1 g/dL 3.6-5.1 Globulin, total (test code = 63937-8) 3.0 1.9- 3.7 g/dL (c alc) Albumin/globulin ratio (test code = 1759-0) 1.4 1.0- 2.5 ( calc) Total bilirubin (test code = 1974-) 0.4 mg/dL 0.2-1.2 Alkaline phosphatase (test code = 6768-6) 95 U/L 31-125 AST (test code = 1920-8) 20 U/L 10-30 ALT (test code = 1742-6) 26 U/L 6-29 IRENA (test code = IRENA) MULTIPLE TESTING PRIORITIES; ROUTINE TESTI NG TO FOLLOW. RAC (test code = RAC) Performing Organization Info rmation: Site ID: RGA Name: [facility] Address: [address] [place] [id number] Director: Clay Díaz Lab Interpretation (test code = 61390-9) Abnormal [facility] MethodistFerritin [id number] 17:57:00* Test Item Value Reference Range Interpretation Comments Ferritin level (test code = 2276-4) 215 ng/mL 16-232 IRENA (test code = IRENA) MULTIPLE TESTING PRIORITIES; ROUTINE TESTI NG TO FOLLOW. RAC (test code = RAC) Performing Organization Info rmation: Site ID: A Name: [facility] Address: [address] [place] [address] Director: Clay Díaz [place] Methodist[facility]-reactive [id number] 17:57:00* Test Item Value Reference Range Interpretation Comments CRP (test code = 1987-5) 38.2 mg/L <8.0 H IRENA (test code = IRENA) MULTIPLE TESTING PRIORITIES; ROUTINE TESTI NG TO FOLLOW. RAC (test code = RAC) Performing Organization Info rmation: Site ID: ROJASA Name: [facility] Address: [address] [place] [address] Director: Clay Díaz Lab Interpretation (test code = 19349-2) Abnormal [facility] with platelet and gryrrizculrm7116-51-31 17:57:00* Test Item Value Reference Range Interpretation Comments [...] 7.5-12.5 Neutrophils, absolute (test code = 751-8) [address]2543 1,500 - 7,80 0 cells/uL H Lymphocytes, [...] Organization Info rmation: Site ID: RGA Name: [facility] [place] Address: [address] [place] [address] Director: Clay Díaz Lab Interpretation (test code = 31119-5) Abnormal [place] MethodistSedimentation [id number] 17:57:00* Test Item Value Reference Range Interpretation Comments Sedimentation rate (test code = 4537-7) 43 mm/h < OR = 20 H IRENA (test code = IRENA) MULTIPLE TESTING PRIORITIES; ROUTINE TESTI NG TO FOLLOW. RAC (test code = RAC) Performing Organization Info rmation: Site ID: RGA Name: [facility] Address: [address] [place] [address] Director: Clay Díaz Lab Interpretation (test code = 44146-4) Abnormal [place] MethodistVitamin D 25 hydroxy [id number] 17:57:00* Test Item Value Reference Range Interpretation Comments Vitamin D, 25-hydroxy (test code = 1989-3) 37 ng/mL 30-100 Vitamin D Status 25-OH Vitamin D: Deficiency: <20 ng/mLInsufficiency: 20 - 29 ng/mLOptimal: > or = 30 ng/mL For 25-OH Vitamin D testing on patients on D2-supplementation and patients for whom quantitation of D2 and D3 fractions is required, the QuestAssureD(TM)25-OH VIT D, (D2,D3), LC/MS/MS is recommended: order code 75823 (patients >2yrs).See Note 1 Note 1 For additional information, please refer to http://education.[employer]/faq/NNR878 (This link is being provided for informational/educational purposes only.) IRENA (test code = IRENA) MULTIPLE TESTING PRIORITIES; ROUTINE TESTI NG TO FOLLOW. RAC (test code = RAC) Performing Organization Info rmation: Site ID: JOELLE Name: [facility] Address: [address] [place] [address] Director: Clay Díaz [facility] iron binding [id number] 17:57:00* Test Item Value Reference Range Interpretation Comments [...] Organization Info rmation: Site ID: JOELLE Name: [facility] [place] Address: [address] [place] [address] Director: Clay Díaz [facility] SINGLE (PORTABLE)2019-11-07 12:31:00 [place] [address] Patient Name: MAXIM HOYOS MR #: [id number] : 1975 Age/Sex: 44/F Req #: [id number] Adm Physician: Ordered by: ELIZ SHAY MD Report #: [id number] Location: ER Room/Bed: Procedure: [id number] DX/C HEST SINGLE (PORTABLE) Exam Date: 11/07/19 Exam Time : 1215 REPORT STATUS: Signed SHAE HNIQUE: Frontal view of the chest. INDICATION: LEUKOCYTOSIS, CP 2019 914 1214 COMPARISON: None DISCUSSION: Limited evaluation due to portable technique. Lines and hardware: Overlying EKG leads are noted He art and mediastinum: Cardia mediastinal silhouette, pulmonary vascularity and mediastinal contours are within normal limits. Trachea projects midline. Lungs and pleura: No focal airspace consolidation. No pleural effusion. No pneumoth orax. Soft tissues and bones: No acute abnormality. IMPRESSION: Negativ e for acute intrathoracic process. Signed by: Leticia Olea MD on 12:31 PM Dictated By: LETICIA OLEA MD 1231 Transcribed By: ZEB on 11/07/19 1231 COPY TO: ELIZ SHAY MD Blood leukocytes automated count (number/volume)2019-11-07 11:23:00* Test Item Value Reference Range Interpretation Comments White Blood Count (test code = 6690-2) 12.07 4.8-10.8 [facility] erythrocytes automated count (number/volume)2019-11-07 11:23:00* Test Item Value Reference Range Interpretation Comments Red Blood Count (test code = 789-8) 4.58 3.6-5.1 [facility] Center[facility] hemoglobin measurement (moles/volume)2019-11-07 11:23:00* Test Item Value Reference Range Interpretation Comments Hemoglobin (test code = 07177-6) 13.1 12.0-16.0 [facility] CenterAutomated blood hematocrit (volume fraction)2019-11-07 11:23:00* Test Item Value Reference Range Interpretation Comments Hematocrit (test code = 4544-3) 40.3 34.2-44.1 [facility] CenterAutomated erythrocyte mean corpuscular ovbgos9110-57-72 11:23:00* Test Item Value Reference Range Interpretation Comments Mean Corpuscular Volume (test code = 787-2) 88.0 81-99 [facility] CenterAutom[facility] erythrocyte mean corpuscular hemoglobin (mass per erythrocyte)2019-11-07 11:23:00* Test Item Value Reference Range Interpretation Comments Mean Corpuscular Hemoglobin (test code = 785-6) 28.6 28-32 [facility] CenterAutom[facility] erythrocyte mean corpuscular hemoglobin concentration measurement (mass/volume)2019-11-07 11:23:00* Test Item Value Reference Range Interpretation Comments Mean Corpuscular Hemoglobin Concent (test code = 786-4) 32.5 31-35 [facility] CenterRDW RelJr-Fmj6211-32-15 11:23:00* Test Item Value Reference Range Interpretation Comments Red Cell Distribution Width (test code = 01674-1) 13.8 11.7 -14.4 [facility] CenterAutom[facility] blood platelet count (count/volume)2019-11-07 11:23:00* Test Item Value Reference Range Interpretation Comments Platelet Count (test code = 777-3) 415 140-360 [facility] CenterAutomated blood segmented neutrophil count as percentage of total dsrwtqdapn5496-05-73 11:23:00* Test Item Value Reference Range Interpretation Comments Neutrophils (%) (Auto) (test code = 12062-3) 59.2 38.7-80.0 [facility] CenterAutom[facility] blood lymphocyte count as percentage ot total rsxtbhikzl8740-66-29 11:23:00* Test Item Value Reference Range Interpretation Comments Lymphocytes (%) (Auto) (test code = 736-9) 20.4 18.0-39.1 [facility] CenterAutom[facility] blood monocyte count as percentage of total wwmnpfcrxy7421-92-84 11:23:00* Test Item Value Reference Range Interpretation Comments Monocytes (%) (Auto) (test code = 5905-5) 5.7 4.4-11.3 [facility] CenterAutom[facility] blood eosinophil count as percentage of total lbunwesxwr3500-46-43 11:23:00* Test Item Value Reference Range Interpretation Comments Eosinophils (%) (Auto) (test code = 713-8) 13.4 0.0-6.0 [facility] CenterAutom[facility] blood basophil count as percentage of total ljeiqhoaiv9198-55-17 11:23:00* Test Item Value Reference Range Interpretation Comments Basophils (%) (Auto) (test code = 706-2) 0.7 0.0-1.0 [facility] CenterFluoroscopic procedure less than one hour wrsuhpfc0002-91-57 11:23:00* Test Item Value Reference Range Interpretation Comments IM GRANULOCYTES % (test code = IM GRANULOCYTES %) 0.6 0.0- 1.0 [facility] CenterAutomated blood neutrophil count 2019-11-07 11:23:00* Test Item Value Reference Range Interpretation Comments Neutrophils # (Auto) (test code = 751-8) 7.1 2.1-6.9 [facility] lymphocytes count (number/volume) 2019-11-07 11:23:00* Test Item Value Reference Range Interpretation Comments Lymphocytes # (Auto) (test code = 76662-4) 2.5 1.0-3.2 [facility] monocytes automated count (number/volume)2019-11-07 11:23:00* Test Item Value Reference Range Interpretation Comments Monocytes # (Auto) (test code = 742-7) 0.7 0.2-0.8 [facility] CenterAutomated blood eosinophil count 2019-11-07 11:23:00* Test Item Value Reference Range Interpretation Comments Eosinophils # (Auto) (test code = 711-2) 1.6 0.0-0.4 [facility] CenterAutomated blood basophil count (count/volume)2019-11-07 11:23:00* Test Item Value Reference Range Interpretation Comments Basophils # (Auto) (test code = 704-7) 0.1 0.0-0.1 [facility] CenterFluoroscopic procedure less than one hour aqioxfkg9394-98-62 11:23:00* Test Item Value Reference Range Interpretation Comments Absolute Immature Granulocyte (auto (evin t code = Absolute Immature Granulocyte (auto) 0.07 0-0.1 [facility] CenterProthrombin time (PT) in platelet poor plasma by coagulation wscow7387-17-48 11:23:00* Test Item Value Reference Range Interpretation Comments Prothrombin Time (test code = 5902-2) 12.7 11.9-14.5 [facility] CenterINR in Platelet poor plasma by Coagulation fxymw3209-30-65 11:23:00* Test Item Value Reference Range Interpretation Comments Prothromb Time International Ratio (test code = 6301-6) 0.91 Oral Anticoagulant Therapy INR Values:1. Low Intensity Therapy 1.5 - 2.02 . Moderate Intensity Therapy 2.0 - 3.03. High Intensity Therapy(1) 2.5 - 3. 54. High Intensity Therapy(2) 3.0 - 4.05. Panic Value INR > 5.0 [facility] CenterActivated partial thromboplastin time (aPTT) in platelet poor plasma by coagulation zftzf7943-42-01 11:23:00* Test Item Value Reference Range Interpretation Comments Activated Partial Thromboplast Time (test code = 73760-6) 36.0 23.8-35.5 [facility] sodium measurement (moles/volume)2019-11-07 11:23:00* Test Item Value Reference Range Interpretation Comments Sodium Level (test code = 2951-2) 140 136-145 [facility] Hospital[facility] plasma potassium measurement (moles/volume)2019-11-07 11:23:00* Test Item Value Reference Range Interpretation Comments Potassium Level (test code = 2823-3) 3.5 3.5-5.1 [facility] plasma chloride measurement (moles/volume)2019-11-07 11:23:00* Test Item Value Reference Range Interpretation Comments Chloride Level (test code = 2075-0) 103 98-107 [facility] or plasma carbon dioxide, total measurement (moles/volume)2019-11-07 11:23:00* Test Item Value Reference Range Interpretation Comments Carbon Dioxide Level (test code = 2028-9) 26 22-29 [facility] Hospitalerum or plasma anion yzo6886-79-59 11:23:00* Test Item Value Reference Range Interpretation Comments Anion Gap (test code = 75329-2) 14.5 8-16 [facility] plasma urea nitrogen measurement (mass/volume)2019-11-07 11:23:00* Test Item Value Reference Range Interpretation Comments Blood Urea Nitrogen (test code = 3094-0) 7 7-26 [facility] plasma creatinine measurement (mass/volume)2019-11-07 11:23:00* Test Item Value Reference Range Interpretation Comments Creatinine (test code = 2160-0) 0.72 0.57-1.11 [facility] Hospital[facility] or plasma urea nitrogen/creatinine mass cssqz3804-07-65 11:23:00* Test Item Value Reference Range Interpretation Comments BUN/Creatinine Ratio (test code = 3097-3) 10 6-25 [facility] CenterEstimated glomerular filtration rate (GFR) ayvpwqtlslrcc2156-97-02 11:23:00* Test Item Value Reference Range Interpretation Comments Estimat Glomerular Filtration Rate (test code = 256347597) > 60 >60 Ranges were taken from the National Kidney Disease Education Program and the [facility] Kidney Foundation literature.Reference ranges:60 or greater: Gxbrql56-99 ( for 3 consecutive months): Chronic kidney disease 15 or less: Kidney failureCovenant Medical CenterGlucose bwbgnlznlae1972-92-01 11:23:00* Test Item Value Reference Range Interpretation Comments Glucose Level (test code = YJU5393) 143 74-118 [facility] Hospitalerum or plasma calcium measurement (mass/volume)2019-11-07 11:23:00* Test Item Value Reference Range Interpretation Comments Calcium Level (test code = 99813-5) 9.1 8.4-10.2 [facility] Hospital[facility]um or plasma total bilirubin measurement (mass/volume)2019-11-07 11:23:00* Test Item Value Reference Range Interpretation Comments Total Bilirubin (test code = 1975-2) 0.5 0.2-1.2 [facility] CenterFluoroscopic procedure less than one hour kvdndsuc7728-40-33 11:23:00* Test Item Value Reference Range Interpretation Comments Aspartate Amino Transf (AST/SGOT) (test code = Aspartate Amino Transf (AST/SGOT)) 22 5-34 [facility] Hospitalerum or plasma alanine aminotransferase measurement (enzymatic activity/volume)2019-11-07 11:23:00* Test Item Value Reference Range Interpretation Comments Alanine Aminotransferase (ALT/SGPT) (test code = 1742-6) 34 0-55 [facility] Hospitalerum or plasma protein measurement (mass/volume)2019-11-07 11:23:00* Test Item Value Reference Range Interpretation Comments Total Protein (test code = 2885-2) 7.4 6.5-8.1 [facility] Hospitalerum or plasma albumin measurement (mass/volume)2019-11-07 11:23:00* Test Item Value Reference Range Interpretation Comments Albumin (test code = 1751-7) 4.1 3.5-5.0 [facility] CenterPlasma globulin measurement (mass/volume) 2019-11-07 11:23:00* Test Item Value Reference Range Interpretation Comments Globulin (test code = 51328-6) 3.3 2.3-3.5 [facility] Hospitalerum or plasma albumin/globulin mass pwucp0965-95-94 11:23:00* Test Item Value Reference Range Interpretation Comments Albumin/Globulin Ratio (test code = 1759-0) 1.2 0.8-2.0 [facility] Hospitalerum or plasma alkaline phosphatase measurement (enzymatic activity/volume)2019-11-07 11:23:00* Test Item Value Reference Range Interpretation Comments Alkaline Phosphatase (test code = 6768-6) 95 40-150 [facility] CenterBNP Iba-nOio6346-95-15 11:23:00* Test Item Value Reference Range Interpretation Comments B-Type Natriuretic Peptide (test code = 37941-2) < 10.0 0-100 [facility] Hospitalerum or plasma creatine kinase measurement (enzymatic activity/volume)2019-11-07 11:23:00* Test Item Value Reference Range Interpretation Comments Creatine Kinase (test code = 2157-6) 25 29-168 [facility] Hospitalerum or plasma creatine kinase MB measurement (mass/volume)2019-11-07 11:23:00* Test Item Value Reference Range Interpretation Comments Creatine Kinase MB (test code = 09073-7) 0.50 0-5.0 [facility] CenterTroponin I measurement by highly sensitive enzyme hejypotqavw5120-76-04 11:23:00* Test Item Value Reference Range Interpretation Comments Troponin I (test code = 06526-1) 0.003 0-0.300 [facility] Hospitalerum or plasma thyrotropin measurement by detection limit <= 0.005 miu/l (units/volume)2019-11-07 11:23:00* Test Item Value Reference Range Interpretation Comments Thyroid Stimulating Hormone (TSH) (test code = 76242-2) 1.193 0.350-4.940 [facility] CenterFluoroscopic procedure less than one hour qdqrplfe2077-92-67 11:23:00* Test Item Value Reference Range Interpretation Comments Coronavirus (PCR) (test code = Coronavirus (PCR)) NOT DETECTED NOTD ETECTED SARS-COV2/RT-PCR CEPHEIDResults are for the detection of SARS-COV-2 RNA. The CONRADO S-COV-2 RNA is generally detectable in nasopharyngeal swab specimens during the acute phase of infection. Positive results are indicitive of active infection wi SARS-COV-2; clinical correlation with patient history and other diagnostic in formation is necessary to determine patient infection status. Positive results d o not rule out bacterial infection or co-infection with other viruses. The agent detected may not be the definite cause of the disease.The limit of detection for this assay is 250 copies/mLThe SARS-CoV-2 test is a rapid, real-time RT-PCR test intended for the qualitative detection of nucleic acid from SARS-CoV-2 in nilo opharyngeal swab specimen collected from individuals suspected of COVID-19 by eir healthcare provider. This test has not been Food and Drug Administration (FD A) cleared or approved and has been authorized by FDA under an Emergency Use Aut horization (EUA). This EUA will be effective until the declaration that circumst ances exist justifying the authorization of the emergency use of in vitro diagno stic test for detection and or diagnosis of COVID-19 is terminated under section 564(b) of the Act, or the the EUA is revoked under 564(g) of the ACT.[facility] 11:20:00* Test Item Value Reference Range Interpretation Comments Urine Color (test code = 5778-6) YELLOW YELLOW [facility] [id number] 11:20:00* Test Item Value Reference Range Interpretation Comments Urine Clarity (test code = 50387-6) [facility] Test [facility] 2019-11-07 11:20:00* Test Item Value Reference Range Interpretation Comments Urine Specific [place] (test code = 5811-5) 1.020 1.010-1.02 5 [facility] by automated test [id number] 11:20:00* Test Item Value Reference Range Interpretation Comments Urine pH (test code = 88702-7) 7 5-7 [facility] leukocyte esterase detection by [id number] 11:20:00* Test Item Value Reference Range Interpretation Comments Urine Leukocyte Esterase (test code = 5799-2) NEGATIVE NEGATIVE [facility] nitrite [id number] 11:20:00* Test Item Value Reference Range Interpretation Comments Urine Nitrite (test code = 69524-0) NEGATIVE NEGATIVE [facility] protein measurement by test strip (mass/volume)2019-11-07 11:20:00* Test Item Value Reference Range Interpretation Comments Urine Protein (test code = 5804-0) NEGATIVE NEGATIVE [facility] glucose [id number] 11:20:00* Test Item Value Reference Range Interpretation Comments Urine Glucose (UA) (test code = 2349-9) NEGATIVE NEGATIVE [facility] ketones detection by automated test [id number] 11:20:00* Test Item Value Reference Range Interpretation Comments Urine Ketones (test code = 38028-4) NEGATIVE NEGATIVE [facility] urobilinogen measurement by test strip (mass/volume)2019-11-07 11:20:00* Test Item Value Reference Range Interpretation Comments Urine Urobilinogen (test code = 67202-0) 0.2 0.2-1 [facility] total bilirubin measurement (mass/volume)2019-11-07 11:20:00* Test Item Value Reference Range Interpretation Comments Urine Bilirubin (test code = 1978-6) NEGATIVE NEGATIVE [facility] erythrocytes [id number] 11:20:00* Test Item Value Reference Range Interpretation Comments Urine Blood (test code = 58273-2) NEGATIVE NEGATIVE [facility] CenterAutom[facility] urine sediment leukocyte count by microscopy (number/high power field)2019-11-07 11:20:00* Test Item Value Reference Range Interpretation Comments Urine WBC (test code = 5821-4) 0-5 0-5 [facility] Center[facility]rythrocytes detection in urine sediment by light [id number] 11:20:00* Test Item Value Reference Range Interpretation Comments Urine RBC (test code = 96939-4) 0-5 0-5 [facility] CenterBacteria detection in urine sediment by light [id number] 11:20:00* Test Item Value Reference Range Interpretation Comments Urine Bacteria (test code = 70320-0) RARE NONE [facility] CenterEpithelial cells detection in urine sediment by light [id number] 11:20:00* Test Item Value Reference Range Interpretation Comments Urine Epithelial Cells (test code = 73072-5) MODERATE NONE [facility] CenterVitamin B12 [id number] 08:09:00* Test Item Value Reference Range Interpretation Comments Vitamin B12 (test code = 2132-9) 584 pg/mL 200-1100 IRENA (test code = IRENA) FASTING:NOFASTING: NO RAC (test code = RAC) Performing Organization Info rmation: Site ID: RGA [facility]: [facility] Address: [address] [place] [phone] Director: Clay Olivas [id number] 08:09:00* Test Item Value Reference Range Interpretation Comments Folate (test code = 2284-8) 11.8 ng/mL Reference Range Low: <3.4 Borderline: 3.4-5.4 Normal: >5.4 IRENA (test code = IRENA) FASTING:NOFASTING: NO RAC (test code = RAC) Performing Organization Info rmation: Site ID: RGA Name: [facility] [place] [facility] Address: [address] [place] [phone] Director: Clay NuñezCyclic citrullinated peptide antibody, [id number] 08:09:00* Test Item Value Reference Range Interpretation Comments Cyclic citrullin peptide Ab (test code = 80451-8) <16 UN[address] S Reference RangeNegative: <20Weak Positive: 20-39Moderate Positive: 40- 59Strong Positive: >59 IRENA (test code = IRENA) FASTING:NOFASTING: NO RAC (test code = RAC) Performing Organization Info rmation: Site ID: IG [facility]: [facility] Address: [address] [place] [phone] Director: Dr. Clay Meier GatiqdpxfBrpoluclaqt0784-55-90 00:31:00* Test Item Value Reference Range Interpretation Comments Cholesterol, total (test code = 2093-3) 170 mg/dL <200 IRENA (test code = IRENA) FASTING:YESFASTING: YES RAC (test code = RAC) Performing Organization Info rmation: Site ID: RGA Name: [facility] [place] [facility] Address: [address] [place] [phone] Director: Clay LoveL [id number] 00:31:00* Test Item Value Reference Range Interpretation Comments HDL cholesterol (test code = 2085-9) 59 mg/dL >50 IRENA (test code = IRENA) FASTING:YESFASTING: YES RAC (test code = RAC) Performing Organization Info rmation: Site ID: RGA Name: [facility] [place] [facility] Address: [address] [place] [phone] Director: Clay NuñezTriglycerides2019-10-12 00:31:00* Test Item Value Reference Range Interpretation Comments Triglycerides (test code = 2571-8) 94 mg/dL <150 IRENA (test code = IRENA) FASTING:YESFASTING: YES RAC (test code = RAC) Performing Organization Info rmation: Site ID: RGA Name: [facility] [place] [facility] Address: [address] [place] [phone] Director: Clay Wu-CHOLESTEROL (REFLEX QUEST)2018-12-03 00:31:00* Test Item Value Reference Range Interpretation Comments LDL cholesterol calculated (test code = 91086-2) 92 mg/dL (calc) Reference range: <100 Desirable range <100 mg/dL for primary prevention; <70 mg/dL for patients with CHD or diabetic patients with > or = 2 CHD risk factors. LDL-C is now calculated using the Brittany calculation, which is a validated novel method providing better accuracy than the Friedewald equation in the estimation of LDL-C. James DONOHUE et al. PARAM. 2013;310(19): 5101-5571 (http:/ /education.Digiscend.Knotch/faq/WUD855) IRENA (test code = IRENA) FASTING:YESFASTING: YES RAC (test code = RAC) Performing Organization Info rmation: Site ID: RGA Name: [facility] [place] [facility] Address: [address] [place] [address] Director: Clay NuñezCHOL/HDLC RATIO (REFLEX QUEST)2018-12-03 00:31:00* Test Item Value Reference Range Interpretation Comments Cholesterol/HDL ratio (test code = 9830-1) 2.9 <5.0 (calc) IRENA (test code = IRENA) FASTING:YESFASTING: YES RAC (test code = RAC) Performing Organization Info rmation: Site ID: RGA Name: [facility] [place] [facility] Address: [address] [place] [address] Director: Clay Guerrero HDL CHOLESTEROL (REFLEX QUEST)2018-12-03 00:31:00* Test Item Value Reference Range Interpretation Comments Non-HDL cholesterol (test code = 77344-6) 111 <130 mg/dL ( calc) For patients with diabetes plus 1 major ASCVD risk factor, treating to a non-HDL-C goal of <100 mg/dL (LDL-C of <70 mg/dL) is considered a therapeutic option. IRENA (test code = IRENA) FASTING:YESFASTING: YES RAC (test code = RAC) Performing Organization Info rmation: Site ID: RGA Name: [facility] [place] [facility] Address: [address] [place] [address] Director: Clay NuñezQuantiFERON-TB Gold Plus, 1 [id number] 00:31:00* Test Item Value Reference Range Interpretation Comments Quantiferon TB gold plus (test code = 64176-9) NEGATIVE NEGATIV E Negative test result. M. tuberculosis complex infection unlikely. Quantiferon NIL (test code = 78803-1) 0.04 IU/mL Quantiferon mitogen minus NIL (test code = 75530-6) >10.00 IU /mL Quantiferon plus TB1 minus NIL (test code = 33329-9) 0.00 I U/mL Quantiferon plus TB2 minus [...] T- lymphocytes. For additional information, please refer tohttps://education.Pandora.TV.Knotch/faq/GQI864(This link is being provided for informational/educational purposes only.) IRENA (test code = IRENA) FASTING:YESFASTING: YES RAC (test code = RAC) Performing Organization Info rmation: Site ID: RGA Name: [facility] [place] [facility] Address: [address] [place] [phone] Director: Clay Nuñez
--- OUTSIDE RECORDS SUMMARY | 2019-11-07 22:54 | XMS REPORT | Clinical Summary ---
Author Author [facility] Address Unknown Phone Unavailable Care Team Providers Care Member Certification Manager Name Role Phone Luis Kitchen MD PCP [...] Encounters Care Team Description Date Type Specialty Mackenzie Vital 11/07/2019 Telephone GastroenterMilena Muro PA Ulcerative pancolitis with other complic ation [...] ation (HCC) (Primary Dx) 08/23/2019 Refill Gastroenterology Ayn Thompson, NILDA 08/17/2019 Orders Only Gastroenterology Any Thompson LVN 08/17/2019 Orders Only Gastroenterology 08/15/2019 Travel Any Thompson, CORPORATE ADMINISTRATOR 08/15/2019 Orders Only Gastroenterology Any Thompson, CORPORATE ADMINISTRATOR 05/12/2019 Documentation GastroenterLuci Oreilly 03/31/2019 Documentation Gastroenterology Milena Reagan PA Elevated alkaline phosphatase level (Maryellen kelly Dx) 03/30/2019 Orders Only GastroenterMilena Muro PA Ulcerative pancolitis with other complic ation [...] Comments Vital Sign 119/81 03/29/2019 10:58 AM SECURITY FLEX OFFICER Blood Pressure 88 03/29/2019 10:58 AM SECURITY FLEX OFFICER Pulse - - Temperature - - Respiratory Rate - - Oxygen Saturation - - Inhaled Oxygen Concentration 74.8 kg (165 lb) 03/29/2019 10:58 AM SECURITY FLEX OFFICER Weight 160 cm (5' 3") 03/29/2019 10:58 AM SECURITY FLEX OFFICER Height 29.23 03/29/2019 10:58 AM SECURITY FLEX OFFICER Body Mass Index Plan of Treatment Health [...] CDT disease) Fatigue, unspecified type Nutritional assessment C-REACTIVE PROTEIN Routine 11/06/2019 IBD (inflam matory bowel 4:57 [...] oint, multiple PEPTIDE AB, IGG 11:49 AM SECURITY FLEX OFFICER sites VITAMIN D 25 HYDROXY Routine 03/29/2019 Encounter for nutritional LEVEL 11:49 AM SECURITY FLEX OFFICER assessment VITAMIN B12 LEVEL Routine 03/29/2019 Encounter fo r nutritional 11:49 AM SECURITY FLEX OFFICER assessment TOTAL IRON BINDING Routine 03/29/2019 Encounter f or nutritional CAPACITY 11:49 AM SECURITY FLEX OFFICER assessment FOLATE LEVEL Routine 03/29/2019 Encounter for n utritional 11:49 AM SECURITY FLEX OFFICER assessment FERRITIN LEVEL Routine 03/29/2019 Encounter for n utritional 11:49 AM SECURITY FLEX OFFICER assessment SEDIMENTATION RATE Routine 03/29/2019 Ulcerative pancolitis 11:49 AM SECURITY FLEX OFFICER with other complication (HCC) Encounter for therapeutic drug monitoring C-REACTIVE PROTEIN Routine 03/29/2019 Ulcerative pancolitis 11:49 AM SECURITY FLEX OFFICER with other complication (HCC) Encounter for therapeutic drug monitoring COMPREHENSIVE METABOLIC Routine 03/29/2019 Ulcera tive pancolitis PANEL 11:49 AM SECURITY FLEX OFFICER with other complica tion (HCC) Encounter for therapeutic drug monitoring CBC WITH PLATELET AND Routine 03/29/2019 Ulcerati ve pancolitis DIFFERENTIAL 11:49 AM SECURITY FLEX OFFICER with other complica tion (HCC) Encounter for [...] Iron level 46 40 - 190 mcg/dL [facility] [place] Iron binding 267 250 - 450 mcg/dL [facility] capacity (calc) gis.to [place] Iron saturation 17 16 - 45 % (calc) [facility] [place] Specimen Blood Narrative Performed At MULTIPLE TESTING PRIORITIES; ROUTINE TESTING TO [email or web address] [facility] Resulting Agency Comment Performing Organization Information: Site ID: RGA Name: [facility] Address: [address] [place] [phone] Director: Clay Díaz Performing Organization Address City/State/Zipcode Ph one Number [place] [address] [address] * Vitamin D 25 hydroxy level (11/06/2019 4:57 PM CDT) Only the most recent of 2 results within the time period is included. Pathologist [facility] Vitamin D, 37 30 - 100 ng/mL [facility] 25-hydroxy Comment: DIAGNOSTICS Vitamin D Status [place] 25-OH Vitamin D: Deficiency: <20 ng/mL Insufficiency: 20 - 29 ng/mL Optimal: > or = 30 ng/mL For 25-OH Vitamin D testing on patients on D2-supplementation and patients for whom quantitation of D2 and D3 fractions is required, the QuestAssureD(TM) 25-OH VIT D, (D2,D3), LC/MS/MS is recommended: order code 75842 (patients >2yrs). See Note 1 Note 1 For additional information, please refer to http://education.Buyt.In.[facility]/faq/BFU291 (This link is being provided for informational/ educational purposes only.) Specimen Blood Narrative Performed At MULTIPLE TESTING PRIORITIES; ROUTINE TESTING TO RICH TROTTER Resulting Agency Comment Performing Organization Information: Site ID: RGA Name: [facility] Address: [address] [place] [phone] Director: Clay Díaz Performing Organization Address [facility] one Number [facility] [place] [address] [place] [address] * Sedimentation rate (11/06/2019 4:57 PM CDT) Only the most recent of 3 results within the time period is included. Pathologist [facility] Sedimentation 43 (H) < OR = 20 mm/h [facility] rate [facility] Specimen Blood Narrative Performed At MULTIPLE TESTING PRIORITIES; ROUTINE TESTING TO RICH Avalos [facility] Resulting Agency Comment Performing Organization Information: Site ID: RGA Name: [facility] Address: [address] [place] [phone] Director: Clay Díaz Performing Organization Address [facility] one Number [place] [address] [place] [address] * CBC with platelet and differential (11/06/2019 4:57 PM CDT) Only the most recent of 3 results within the time period is included. Pathologist [facility] WBC 19.8 (H) 3.8 - 10.8 [facility] Thousand/uL DIAGNOSTICS [place] RBC 4.66 3.80 - 5.10 [facility] Million/uL DIAGNOSTICS [place] HGB 13.6 11.7 - 15.5 g/dL [facility] [place] HCT 41.3 35.0 - 45.0 % [facility] [place] MCV 88.6 80.0 - 100.0 fL [facility] [place] MCH 29.2 27.0 - 33.0 pg [facility] [place] MCHC 32.9 32.0 - 36.0 g/dL [facility] [place] RDW 13.4 11.0 - 15.0 % [facility] [place] Platelet count 421 (H) 140 - 400 [facility] Thousand/uL DIAGNOSTICS [place] MPV 9.4 7.5 - 12.5 fL [facility] [place] Neutrophils, 13,919 (H) 1,500 - 7,800 [facility] absolute cells/uL DI[facility]NOSTICS [place] Lymphocytes, 3,485 850 - 3,900 cells/uL [facility] absolute DIAGNOSTICS [place] Monocytes, 990 (H) 200 - 950 cells/uL [facility] absolute [facility]AGNOSTICS [place] Eosinophils, 1,307 (H) 15 - 500 cells/uL [facility] absolute [facility]AG[facility]STICS [place] Basophils, 99 0 - 200 cells/uL [facility] absolute DIAGNOSTICS [place] Neutrophils 70.3 % [facility] [place] Lymphocytes 17.6 % [facility] [place] Monocytes 5.0 % [facility] [place] Eosinophils 6.6 % [facility] [place] Basophils + RC 0.5 % [facility] [place] Specimen Blood Narrative Performed At MULTIPLE TESTING PRIORITIES; ROUTINE TESTING TO [employer]. [facility] Resulting Agency Comment Performing Organization Information: Site ID: A Name: [facility] Address: [address] [place] [phone] Director: Clay Díaz Performing Organization Address [facility] one [facility] [place] [address] * C-reactive protein (11/06/2019 4:57 PM CDT) Only the most recent of 3 results within the time period is included. CRP 38.2 (H) <8.0 mg/L [facility] [place] Specimen Blood Narrative Performed At MULTIPLE TESTING PRIORITIES; ROUTINE TESTING TO [employer]. [employer] Resulting Agency Comment Performing Organization Information: Site ID: A Name: [facility] Address: [address] [place] [phone] Director: Clay Díaz Performing Organization Address [facility] one [facility] [place] [address] * Ferritin level (11/06/2019 4:57 PM CDT) Only the most recent of 2 results within the time period is included. Ferritin level 215 16 - 232 ng/mL [facility] [place] Specimen Blood Narrative Performed At MULTIPLE TESTING PRIORITIES; ROUTINE TESTING TO [employer]. [employer] Resulting Agency Comment Performing Organization Information: Site ID: RGA Name: [facility] Address: [address] [place] [phone] Director: Clay Díaz Performing Organization Address [facility] one [facility] [place] [address] * Comprehensive metabolic panel (11/06/2019 4:57 PM CDT) Only the most recent of 3 results within the time period is included. Glucose 126 (H) 65 - 99 mg/dL [facility] Comment: DIAGNOSTICS Fasting [place] reference interval For someone without known diabetes, a glucose value >125 mg/dL indicates that they may have diabetes and this should be confirmed with a follow-up test. BUN 9 7 - 25 mg/dL [facility] [place] Creatinine 0.65 0.50 - 1.10 mg/dL [facility] [place] EGFR Non-Afr. 108 > OR = 60 [facility] Pakistani mL/min/1.73m2 DIAGNOSTICS [place] EGFR 125 > OR = 60 [facility] Pakistani mL/min/1.73m2 DIAGNOSTICS [place] BUN/creatinine NOT APPLICABLE 6 - 22 (calc) [facility] ratio [facility]AGNOSTICS [place] Sodium 137 135 - 146 mmol/L [facility] [place] Potassium 3.7 3.5 - 5.3 mmol/L [facility] [place] Chloride 98 98 - 110 mmol/L [facility] [place] CO2 30 20 - 32 mmol/L [facility] [place] Calcium 9.1 8.6 - 10.2 mg/dL [facility] [place] Protein 7.1 6.1 - 8.1 g/dL [facility] [place] Albumin, S 4.1 3.6 - 5.1 g/dL [facility] gis.to [place] Globulin, total 3.0 1.9 - 3.7 g/dL [facility] (calc) [facility] Albumin/globuli 1.4 1.0 - 2.5 (calc) [facility] n ratio [facility] Total bilirubin 0.4 0.2 - 1.2 mg/dL [facility] [place] Alkaline 95 31 - 125 U/L [facility] phosphatase [facility] AST 20 10 - 30 U/L [facility] [place] ALT 26 6 - 29 U/L [facility] [place] Specimen Blood Narrative Performed At MULTIPLE TESTING PRIORITIES; ROUTINE TESTING TO RICH Avalos [facility] Resulting Agency Comment Performing Organization Information: Site ID: RGA Name: [facility] Address: [address] [place] [phone] Director: Clay Díaz Performing Organization Address City/State/Zipcode Ph one Number [place] [address] [address] * Cyclic citrullinated peptide antibody, IgG (03/29/2019 11:49 AM SECURITY FLEX OFFICER) Cyclic <16 UNITS [facility] citrullin Comment: DIAGNOSTICS-ANAYA peptide Ab Reference Range ING II Negative: <20 Weak Positive: 20-39 Moderate Positive: 40-59 Strong Positive: >59 Specimen Blood Narrative Performed At FASTING:NO [facility] FASTING: NO Resulting Agency Comment Performing Organization Information: Site ID: IG [facility]: [facility] Address: [address] [place] [address] Director: Dr. Clay Díaz Performing Organization Address [facility] one Number [employer] [address] [place] [address] II * Folate level (03/29/2019 11:49 AM SECURITY FLEX OFFICER) Pathologist [facility] Folate 11.8 ng/mL [facility] Comment: [facility] Reference Range Low: <3.4 Borderline: 3.4-5.4 Normal: >5.4 Specimen Blood Narrative Performed At FASTING:NO [facility] FASTING: NO Resulting Agency Comment Performing Organization Information: Site ID: RGA Name: [facility] Address: [address] [place] [phone] Director: Clay Díaz Performing Organization Address [facility] one Number [place] [address] [address] * Vitamin B12 level (03/29/2019 11:49 AM SECURITY FLEX OFFICER) [facility] Vitamin B12 584 200 - 1,100 pg/mL [facility] [place] Specimen Blood Narrative Performed At FASTING:NO [facility] FASTING: NO Resulting Agency Comment Performing Organization Information: Site ID: RGA Name: [facility] Address: [address] [place] [phone] Director: Clay Díaz Performing Organization Address [facility] one Number [place] [address] [address] * QuantiFERON-TB Gold Plus, 1 Tube (11/30/2018 11:23 AM CDT) [facility] Quantiferon TB NEGATIVE NEGATIVE [facility] gold plus Comment: DIAGNOSTICS Negative test result. M. MEIER tuberculosis complex infection unlikely. Quantiferon NIL 0.04 IU/mL [facility] [place] Quantiferon >10.00 IU/mL [facility] mitogen minus DIAGNOSTICS NIL [place] Quantiferon 0.00 IU/mL [facility] plus TB1 minus DIAGNOSTICS NIL [place] Quantiferon 0.01 IU/mL [facility] plus TB2 minus Comment: DIAGNOSTICS NIL The Nil tube value reflects MEIER the background interferon gamma immune response of [...] T-lymphocytes. For additional information, please refer to https://education.Sweetgreen.[facility]/faq/SEO261 (This link is being provided for informational/ educational purposes only.) Specimen Narrative Performed At FASTING:YES [facility] FASTING: YES Resulting Agency Comment Performing Organization Information: Site ID: RGA Name: [facility] Address: [address] [place] [phone] Director: Clay Díaz Performing Organization Address [facility] one Number [place] [address] * NON HDL CHOLESTEROL (REFLEX [facility]) (11/30/2018 11:23 AM CDT) Non-HDL 111 <130 mg/dL (calc) [facility] cholesterol Comment: DIAGNOSTICS For patients with diabetes [place] plus 1 major ASCVD risk factor, treating to a non-HDL-C goal of <100 mg/dL (LDL-C of <70 mg/dL) is considered a therapeutic option. Specimen Narrative Performed At FASTING:YES [facility] FASTING: YES Resulting Agency Comment Performing Organization Information: Site ID: A Name: [facility] Address: [address] [place] [phone] Director: Clay Díaz Performing Organization Address [facility] one Number [place] [address] * CHOL/HDLC RATIO (REFLEX [facility]) (11/30/2018 11:23 AM CDT) Cholesterol/HDL 2.9 <5.0 (calc) [facility] ratio [facility] Specimen Narrative Performed At FASTING:YES [facility] FASTING: YES Resulting Agency Comment Performing Organization Information: Site ID: A Name: [facility] Address: [address] [place] [phone] Director: Clay Díaz Performing Organization Address [facility] one Number [facility] [employer] [place] [address] * LDL-CHOLESTEROL (REFLEX [facility]) (11/30/2018 11:23 AM CDT) LDL cholesterol 92 mg/dL (calc) [facility] calculated Comment: DIAGNOSTICS Reference range: <100 [place] Desirable range <100 mg/dL for primary prevention; <70 mg/dL for patients with CHD or diabetic patients with > or = 2 CHD risk factors. LDL-C is now calculated using the Brittany calculation, which is a validated novel method providing better accuracy than the Friedewald equation in the estimation of LDL-C. James DONOHUE et al. PARAM. 2013;310(19): 7762-7092 (http://education.iSentium.[facility]/faq/ZDU728) Specimen Narrative Performed At FASTING:YES [facility] FASTING: YES Resulting Agency Comment Performing Organization Information: Site ID: A Name: [facility] Address: [address] [place] [phone] Director: Clay Díaz Performing Organization Address [facility] one Number [place] [address] * Triglycerides (11/30/2018 11:23 AM CDT) Triglycerides 94 <150 mg/dL [facility] [place] Specimen Narrative Performed At FASTING:YES [facility] FASTING: YES Resulting Agency Comment Performing Organization Information: Site ID: A Name: [facility] Address: [address] [place] [phone] Director: Clay Díaz Performing Organization Address [facility] one Number [employer] [place] [address] * HDL cholesterol (11/30/2018 11:23 AM CDT) HDL cholesterol 59 >50 mg/dL [facility] [place] Specimen Narrative Performed At FASTING:YES [facility] FASTING: YES Resulting Agency Comment Performing Organization Information: Site ID: RGA Name: [facility] Address: [address] [place] [phone] Director: Clay Díaz Performing Organization Address [facility] one Number [facility] [place] [address] [place] [address] * Cholesterol (11/30/2018 11:23 AM CDT) Cholesterol, 170 <200 mg/dL [facility] total DIAGNOSTICS [place] Specimen Narrative Performed At FASTING:YES [facility] FASTING: YES Resulting Agency Comment Performing Organization Information: Site ID: RGA Name: [facility] Address: [address] [place] [phone] Director: Clay Díaz Performing Organization Address [facility] one Number Ign[place] [address] [place] [address] after 11/06/2018 Insurance Type Payer Benefit Subscriber ID Effective Phone Address Plan / Dates Group PPO BCBS BCBS xxxxxxxxxxxx [id number] CHOICE resent PPO/GOMZE JERNIGAN PPO [id number] Advance Directives For more information, please contact: [phone] Patient Storage Facility Rental Clerk Explanation Type Date Recorded Advance Directives, Living Will and Medical Power of Target Trimmer
[2019-11-07 22:55] LABS: BACTERIA,URINE RARE /HPF; EPITHELIAL CELLS,URINE MODERATE /LPF; RBC,URINE 0-5 /HPF (0-5); WBC,URINE (MAN) 0-5 /HPF (0-5)
[2019-11-07] MEDS ORDERED: IOPAMIDOL 370 MG/ML 200 ML INFUS..BTL INJ ONE (23:17)
[2019-11-07] MEDS ORDERED: SODIUM CHLORIDE 0.9% 50ML 50 ML ONE (23:18)
[2019-11-08] VITALS (10 sets, daily range): BP systolic 100–121; BP diastolic 54–86
--- NOTE | 2019-11-08 00:26 | Diagnostic Imaging Report ---
EXAMINATION: Head CT without contrast. HISTORY:Headache. COMPARISON:None. TECHNIQUE: Multidetector axial images were obtained from the foramen magnum to the vertex without contrast. The images were reconstructed using brain and bone algorithms. Thin section brain images were reformatted into coronal and sagittal planes. Dose modulation, iterative reconstruction, and/or weight based adjustment of the mA/kV was utilized to reduce the radiation dose to as low as reasonably achievable. Intravenous contrast: None IMAGE QUALITY: Acceptable. FINDINGS: Skull/scalp: No lytic or blastic. lesions. No surgical changes. Parenchyma: No abnormal density. No acute hemorrhage, mass or acute major vascular territorial infarct. Arteries: No density suggestive of thrombosis. Dural sinuses: No abnormal density suggestive of thrombosis. Ventricles: No hydrocephalus or displacement. Extra-axial spaces: Nonspecific dystrophic calcifications along the anterior falx, parafalcine region and anterior frontal extra-axial space. Brain volume: Normal for age. Craniocervical junction: No mass, Chiari malformation, or basilar invagination. Sella: No mass. Paranasal/mastoid sinuses: Minimal mucosal thickening in bilateral sphenoid sinus. IMPRESSION: No acute intracranial abnormality. Signed by: Dr. Tameka Kate M.D. on 11/08/2019 12:23 AM
--- NOTE | 2019-11-08 00:59 | Diagnostic Imaging Report ---
EXAM: CT Chest WITH contrast 11/07/2019 11:50 PM INDICATION: ^PE PROTOCOL ^[id number] ^2350 ^Y COMPARISON: None TECHNIQUE: Chest was scanned utilizing a multidetector helical scanner from the lung apex through the level of the adrenal glands with administration of IV contrast. Coronal and sagittal reformations were obtained. Routine protocol was performed. IV CONTRAST: 100 mL of Omnipaque 300 COMPLICATIONS: None RADIATION DOSE: Total DLP: 557.78 mGy*cm Estimated effective dose: (DLP x 0.014 x size factor) mSv CTDIvol has been reviewed. It is below the limits set by the Radiation Protocol Committee (RPC). Dose modulation, iterative reconstruction, and/or weight based adjustment of the mA/kV was utilized to reduce the radiation dose to as low as reasonably achievable. FINDINGS: LINES/ TUBES: None. LUNGS: No consolidation. No pleural effusion. No pneumothorax. Mild dependent atelectasis. HEART AND MEDIASTINUM: The thyroid gland is normal. No mediastinal, hilar or axillary lymphadenopathy. The heart is mildly enlarged. No pericardial effusion. The thoracic aorta is normal caliber. The main pulmonary artery is normal caliber. Mildly limited evaluation for pulmonary emboli at the subsegmental level due to borderline optimal opacification of the pulmonary arteries and mild respiratory motion. Questionable filling defects in a couple subsegmental pulmonary arteries. For reference, series #2 image 35 in the left upper lobe. Right lower lobe image #54. Otherwise, no filling defects to the segmental level. No CT evidence of right heart strain. UPPER ABDOMEN: Small hiatal hernia. Hepatic steatosis. BONES: The visualized bony thorax is within normal limits. SOFT TISSUES: Unremarkable. IMPRESSION: 1. Mildly limited evaluation of the subsegmental pulmonary arteries. Questionable tiny filling defects in a couple subsegmental pulmonary arteries. Otherwise, no pulmonary emboli to the segmental level. No CT evidence of right heart strain. 2. Mild cardiomegaly. No edema. 3. Hepatic steatosis. Signed by: Carlos Eduardo Max MD on 11/08/2019 12:56 AM
[2019-11-08] MEDS ORDERED: PANTOPRAZOLE 40 MG 10ML VIAL IV STA (01:09)
[2019-11-08] MEDS ORDERED: CEFTRIAXONE SOD 1 GM/NS 50 ML 50 ML IV SCH ×2 (01:15→22:00)
--- OUTSIDE RECORDS SUMMARY | 2019-11-08 01:33 | XMS REPORT | Continuity of Care Document ---
Author Author [facility] t Organization [facility] Address [facility] [place] [address] Phone Unavailable Care Team Providers Care Safety Trainer Name Role Phone MD VICTORIA ILIA PCP Unavailable Cheikh MENEZES Attphys Unavailable SWEET, A LAIRD Attphys Unavailable Vital, Mackenzie Attphys Unavailable Ivania Brito Amanda Attphys [phone] Donna RAMOSN, Any Attphys Unavailable Jamee Moran MD Attphys [phone] Bryan HUERTA, Veronika Attphys Unavailable Anito, B Binca Attphys Unavailable TRICHE, MILICENT Attphys Unavailable TRICHE, MILICENT Admphys Unavailable Payers Payer Name Policy Type Policy Number Effective Date Expiration Date S john [employer] [place] Ppo [id number] [facility] BCBSBCBS CHOICE PPO/FEDERAL EMPL PPOxxxxxxxxxxxx2015-Pre sentPPO xxxxxxxxxxxx 2015 00:00:00 [facility] [employer] Problems Condition Name Condition Details Condition Category Status Onset Date Resolution Date Last Treatment Date Treating Clinician Comments Source Ulcerative colitis Ulcerative colitis Disease Active 2017-11-29 00:00:0 0 [facility] [employer] Malaise Problem Active [facility] Nausea Problem Active [facility] Allergies, Adverse Reactions, Alerts This patient has no known allergies or adverse reactions. Family History Family Member Diagnosis Comments Start Date Stop Date Source Natural brother No Known Problems Ho noman Nondenominational Natural father No Known Problems Sakshi Nuñez Maternal grandfather No Known Problems Hardeep Nuñez Maternal grandmother No Known Problems Hardeep Nuñez Natural mother No Known Problems Sakshi janett Wellsist Other No Known Problems Hardeep Nuñez Paternal grandfather No Known Problems Hardeep Nuñez Paternal grandmother No Known Problems Hardeep Nuñez [...] 50,000 unit capsule 2019-08-28 00:00 :00 Yes [id number] Q7D Take 1 capsule (50,000 Units total) [...] 2018-08-17 00:00: 00 2019-08-28 00:00:00 No 1600mg Q.[id number] Take 2 tablets (1,600 mg total) by mouth 3 (three) times a day. Hardeep Nuñez vedolizumab (ENTYVIO) 300 mg recon soln IV solution 2017-02 00:00:00 Yes Infuse 300mg IV every 8 weejs Hardeep Nuñez ergocalciferol (VITAMIN D2) 50,000 unit capsule 2017-11-30 00:00:00 2018-12-23 00:00:00 No Vitamin D deficiency [id number] Q7D Take 1 capsule (50,000 Units total) [...] Comments Source Weight 2019-11-07 11:21:00 165 [lb_av] [facility] BMI (Body Mass Index) 2019-11-07 11:21:00 29.2 kg/m2 [facility] Systolic blood pressure 2019-03-29 10:58:00 119 mm[Hg] Hardeep Nuñez Diastolic blood pressure 2019-03-29 10:58:00 81 mm[Hg] Hardeep Nuñez Heart rate 2019-03-29 10:58:00 88 /min Hardeep Nuñez Body height 2019-03-29 10:58:00 160 cm Hardeep Nuñez Body weight 2019-03-29 10:58:00 74.844 kg Hardeep Nuñez BMI 2019-03-29 10:58:00 29.23 kg/m2 [facility] [employer] Procedures Procedure Date / Time Performed Performing Clinician Sourc e CBC WITH PLATELET AND DIFFERENTIAL 2019-11-06 16:57:00 Torrey Chilango Mancuso Meier [employer]en[employer]ational COMPREHENSIVE METABOLIC PANEL 2019-11-06 16:57:00 Torrey Chilango Mancuso [place] N[employer]enominational C-REACTIVE PROTEIN 2019-11-06 16:57:00 Torrey Cheyannebrooke Jamee [place] Nondenominational SEDIMENTATION RATE 2019-11-06 16:57:00 [facility]reyChilango [facility] Nondenominational VITAMIN D 25 HYDROXY LEVEL 2019-11-06 16:57:00 TorreyChilango C[place] Nondenominational FERRITIN LEVEL 2019-11-06 16:57:00 TorreyChilango Nondenominational TOTAL IRON BINDING CAPACITY 2019-11-06 16:57:00 TorreyChilangolo [place] Nondenominational CBC WITH PLATELET AND DIFFERENTIAL 2019-03-29 11:49:00 Milena Reagan Nondenominational COMPREHENSIVE METABOLIC PANEL 2019-03-29 11:49:00 Mare Reagan Nondenominational C-REACTIVE PROTEIN 2019-03-29 11:49:00 Milena Reagan Nondenominational SEDIMENTATION RATE 2019-03-29 11:49:00 Milena Reagan Nondenominational FERRITIN LEVEL 2019-03-29 11:49:00 Milena Reagan Nondenominational FOLATE LEVEL 2019-03-29 11:49:00 Milena Reagan Nondenominational TOTAL IRON BINDING CAPACITY 2019-03-29 11:49:00 Milena Reagan Nondenominational VITAMIN B12 LEVEL 2019-03-29 11:49:00 [facility] VITAMIN D 25 HYDROXY LEVEL 2019-03-29 11:49:00 Milena Reagan Meier Nondenominational CYCLIC CITRULLINATED PEPTIDE AB, IGG 2019-03-29 11:49:00 Milena Robison Nondenominational CBC WITH PLATELET AND DIFFERENTIAL 2018-11-30 11:23:00 TorreyChilango Meier Nondenominational COMPREHENSIVE METABOLIC PANEL 2018-11-30 11:23:00 Chilango Moran Hardeep Nuñez SEDIMENTATION RATE 2018-11-30 11:23:00 Chilango Moran maliha Nondenominational C-REACTIVE PROTEIN 2018-11-30 11:23:00 Chilango Moran Nondenominational HDL CHOLESTEROL 2018-11-30 11:23:00 Chilango Moran Reinier on Nondenominational TRIGLYCERIDES 2018-11-30 11:23:00 Chilango Moran Vikkitisha on Nondenominational LDL-CHOLESTEROL (REFLEX QUEST) 2018-11-30 11:23:00 TorreyCindy gillis Hardeep Nuñez NON HDL CHOLESTEROL (REFLEX QUEST) 2018-11-30 11:23:00 Chilango Moran Hardeep Nuñez QUANTIFERON-TB GOLD PLUS, 1 TUBE 2018-11-30 11:23:00 TorreyChilango mcdonald Hardeep Nuñez Plan of Care Planned Activity Planned Date Details Comments Source Future Scheduled Test 2019-10-24 00:00:00 INFLUENZA VACCINE [code = INFLUENZA VACCINE] Hardeep Nuñez Future Scheduled Test 1996-02-04 00:00:00 Screening for maci gnant neoplasm of cervix (procedure) [code = 696627120] Hardeep Nair t Instructions Fatigue [facility] Encounters Start Date/Time End Date/Time Encounter Type Admission Type Attendi RUST Care Department Encounter ID Source 2019-11-07 11:36:00 2019-11-07 11:36:00 Registered Emergency Room 1 ELIZ SHAY [facility] [id number] [facility] 2019-08-28 00:00:00 2019-08-28 00:00:00 Outpatient CHEYANNE MORANUri Y [facility] [id number] Hardeep Nuñez 2016-11-02 15:12:00 2016-11-02 23:59:00 Outpatient Alison [facility] [id number] [facility] Results Test Description Test Time Test Comments Results Result Comments Source CT CHEST W 2019-11-08 00:47:00 [facility] [address] [place], [place] [address] Patient Name: MAXIM HOYOS MR #: [id number] : 1975 Age/Sex: 44/F Req #: [id number] [facility] Physician: Ordered by: VILMA MENEZES MD Report #: [id number] Location: ER Room/Bed: Procedure: [id number] CT/CT CHEST W Exam Date: 11/07/19 Exam Time: 2350 REPORT STATUS: Signed EXAM: CT Chest WITH contrast 11/07/2019 11:50 PM INDICATION: PE PROTOCOL [id number] Y COMPARISON: None TECHNIQUE: Chest was scanned utilizing a multidetector helical scanner from the lung apex through the level of the adrenal glands with administration of IV contrast. Coronal and sagittal reformations were obtained. Routine protocol was performed. IV CONTRAST: 100 mL of Omnipaque 300 COMPLICATIONS: None RADIATION DOSE: Total DLP: 557.78 mGy*cm Estimated effective dose: (DLP x 0.014 x size factor) mSv CTDIvol has been reviewed. It is below the limits set by the Radiation Protocol Committee (RPC). Dose modulation, iterative reconstruction, and/or weight based adjustment of the mA/kV was utilized to reduce the radiation dose to as low as reasonably achievable. FINDINGS: LINES/ TUBES: None. LUNGS: No consolidation. No pleural effusion. No pneumothorax. Mild dependent atelectasis. HEART AND MEDIASTINUM: The thyroid gland is normal. No mediastinal, hilar or axillary lymphadenopathy. The heart is mildly enlarged. No pericardial effusion. The thoracic aorta is normal caliber. The main pulmonary artery is normal caliber. Mildly limited evaluation for pulmonary emboli at the subsegmental level due to borderline optimal opacification of the pulmonary arteries and mild respiratory motion. Questionable filling defects in a couple subsegmental pulmonary arteries. For reference, series #2 image 35 in the left upper lobe. Right lower lobe image #54. Otherwise, no filling defects to the segmental level. No CT evidence of right heart strain. UPPER ABDOMEN: Small hiatal hernia. Hepatic steatosis. BONES: The visualized bony thorax is within normal limits. SOFT TISSUES: Unremarkable. IMPRESSION: 1. Mildly limited evaluation of the subsegmental pulmonary arteries. Questionable tiny filling defects in a couple subsegmental pulmonary arteries. Otherwise, no pulmonary emboli to the segmental level. No CT evidence of right heart strain. 2. Mild cardiomegaly. No edema. 3. Hepatic steatosis. Signed by: Veronika Max MD on 11/08/2019 12:56 AM Dictated By: VERONIKA MAX MD Transcribed By: ZEB on 11/08/1955 COPY TO: VILMA MENEZES MD CT BRAIN WO 2019-11-08 00:18:00 [place] [address] Patient Name: MAXIM HOYOS MR #: [id number] : 1975 Age/Sex: 44/F Req #: [id number] Adm Physician: Ordered by: VILMA MENEZES MD Report #: [id number] Location: ER Room/Bed: Procedure: [id number] CT/CT BRAIN WO Exam Date: 11/07/19 Exam Time: 2350 REPORT STATUS: Signed EXAMINATION: Head CT without contrast. HISTORY:Headache. COMPARISON:None. TECHNIQUE: Multidetector axial images were obtained from the foramen magnum to the vertex without contrast. The images were reconstructed using brain and bone algorithms. Thin section brain images were reformatted into coronal and sagittal planes. Dose modulation, iterative reconstruction, and/or weight based adjustment of the mA/kV was utilized to reduce the radiation dose to as low as reasonably achievable. Intravenous contrast: None IMAGE QUALITY: Acceptable. FINDINGS: Skull/scalp: No lytic or blastic. lesions. No surgical changes. Parenchyma: No abnormal density. No acute hemorrhage, mass or acute major vascular territorial infarct. Arteries: No density suggestive of thrombosis. Dural sinuses: No abnormal density suggestive of thrombosis. Ventricles: No hydrocephalus or displacement. Extra- axial spaces: Nonspecific dystrophic calcifications along the anterior falx, parafalcine region and anterior frontal extra-axial space. Brain volume: Normal for age. Craniocervical junction: No mass, Chiari malformation, or basilar invagination. Sella: No mass. Paranasal/mastoid sinuses: Minimal mucosal thickening in bilateral sphenoid sinus. IMPRESSION: No acute intracranial abnormality. Signed by: Dr. Tameka Kate M.D. on 11/08/2019 12:23 AM Dictated By: TAMEKA KATE MD Transcribed By: ZEB on 11/08/1922 COPY TO: VILMA MENEZES MD Comprehensive metabolic panel 2019-11-07 17:57:00 Test Item Glucose (test code = 2345-7) 126 mg/dL 65-99 H Fasting reference interval For someone without known diabetes, a glucosevalue >125 mg/dL indicates that they may havediabetes and this should be confirmed with afollow-up test. BUN (test code = 3094-0) 9 mg/dL 7-25 Creatinine (test code = 2160-0) 0.65 mg/dL 0.5-1.1 EGFR Non-Afr. Argentine (test code = 2775) 108 > OR = 60 mL /min/1.73m2 EGFR (test code = 40815-0) 125 > OR = 60 mL/min/1.73m2 BUN/creatinine ratio (test code = 3097-3) NOT APPLICABLE 6- 22 (bryan c) Sodium (test code = 2951-2) 137 mmol/L 135-146 Potassium (test code = 2823-3) 3.7 mmol/L 3.5-5.3 Chloride (test code = 2075-0) 98 mmol/L 98-110 CO2 (test code = 2027-9) 30 mmol/L 20-32 Calcium (test code = 82588-4) 9.1 mg/dL 8.6-10.2 Protein (test code = 2885-2) 7.1 g/dL 6.1-8.1 Albumin, S (test code = 1751-7) 4.1 g/dL 3.6-5.1 Globulin, total (test code = 01095-0) 3.0 1.9- 3.7 g/dL (c alc) Albumin/globulin [...] Organization Info rmation: Site ID: JOELLE Name: [facility] Address: [address] [place] [phone] Director: Clay Díaz Lab Interpretation (test code = 66338-3) Abnormal [facility] MethodistFerritin hbjli9343-24-27 17:57:00* Test Item Value Reference Range Interpretation Comments Ferritin level (test code = 2276-4) 215 ng/mL 16-232 IRENA (test code = IRENA) MULTIPLE TESTING PRIORITIES; ROUTINE TESTI NG TO FOLLOW. RAC (test code = RAC) Performing Organization Info rmation: Site ID: ROJASA Name: [facility] Address: [address] [place] [phone] Director: Clay Díaz [facility] MethodistC-reactive ceqiagn4930-58-05 17:57:00* Test Item Value Reference Range Interpretation Comments CRP (test code = 1987-) 38.2 mg/L <8.0 H IRENA (test code = IRENA) MULTIPLE TESTING PRIORITIES; ROUTINE TESTI NG TO FOLLOW. RAC (test code = RAC) Performing Organization Info rmation: Site ID: RGA Name: [facility] Address: [address] [place] [phone] Director: Clay Díaz Lab Interpretation (test code = 71835-5) Abnormal [facility] with platelet and sktjwrusobez7111-29-88 17:57:00* Test Item Value Reference Range Interpretation [...] 7.5-12.5 Neutrophils, absolute (test code = 751-8) 567[address] 1,500 - 7,80 0 cells/uL H Lymphocytes, [...] Organization Info rmation: Site ID: JOELLE Name: [facility] Address: [address] [place] [phone] Director: Clay Díaz Lab Interpretation (test code = 73546-0) Abnormal [facility] MethodistSedimentation cuog3291-13-23 17:57:00* Test Item Value Reference Range Interpretation Comments Sedimentation rate (test code = 4537-7) 43 mm/h < OR = 20 H IRENA (test code = IRENA) MULTIPLE TESTING PRIORITIES; ROUTINE TESTI NG TO FOLLOW. RAC (test code = RAC) Performing Organization Info rmation: Site ID: RGA Name: [facility] Address: [address] [place] [phone] Director: Clay Díaz Lab Interpretation (test code = 67319-3) Abnormal [facility] MethodistVitamin D 25 hydroxy qarua5374-02-29 17:57:00* Test Item Value Reference Range Interpretation [...] D, (D2,D3), LC/MS/MS is recommended: order code 26527 (patients >2yrs).See Note 1 Note 1 For additional information, please refer to http://education.Labmeeting/faq/JPO067 (This link is being provided for informational/educational purposes only.) IRENA (test code = IRENA) MULTIPLE TESTING PRIORITIES; ROUTINE TESTI NG TO FOLLOW. RAC (test code = RAC) Performing Organization Info rmation: Site ID: RGA Name: [facility] Address: [address] [place] [phone] Director: Clay Díaz Cog[facility]ell MethodistTotal iron binding qbqotghs2462-04-97 17:57:00* Test Item Value Reference Range Interpretation [...] Organization Info rmation: Site ID: ROJASA Name: [facility] Address: [address] [place] [phone] Director: Clay Díaz [facility] Dean SINGLE (PORTABLE)2019-11-07 12:31:00 [place] [address] Patient Name: MAXIM HOYOS MR #: [id number] : 1975 Age/Sex: 44/F Req #: [id number] Adm Physician: Ordered by: ELIZ SHAY MD Report #: [id number] Location: ER Room/Bed: Procedure: [id number] DX/C HEST SINGLE (PORTABLE) Exam Date: 11/07/19 Exam Time : 1215 REPORT STATUS: Signed SHAE HNIQUE: Frontal view of the chest. INDICATION: LEUKOCYTOSIS, CP 2019 914 1215 COMPARISON: None DISCUSSION: Limited evaluation due to [...] Count (test code = 6690-2) 12.07 4.8-10.8 [facility] automated count (number/volume)2019-11-07 11:23:00* Test Item Value Reference Range Interpretation Comments Red Blood Count (test code = 789-8) 4.58 3.6-5.1 [facility] hemoglobin measurement (moles/volume)2019-11-07 11:23:00* Test Item Value Reference Range Interpretation Comments Hemoglobin (test code = 12911-1) 13.1 12.0-16.0 [facility] HospitalAutomated blood hematocrit (volume fraction)2019-11-07 11:23:00* Test Item Value Reference Range Interpretation Comments Hematocrit (test code = 4544-3) 40.3 34.2-44.1 [facility] HospitalAutomated erythrocyte mean corpuscular zovrqs1296-02-73 11:23:00* Test Item Value Reference Range Interpretation Comments Mean Corpuscular Volume (test code = 787-2) 88.0 81-99 [facility] HospitalAutomated erythrocyte mean corpuscular hemoglobin (mass per erythrocyte)2019-11-07 11:23:00* Test Item Value Reference Range Interpretation Comments Mean Corpuscular Hemoglobin (test code = 785-6) 28.6 28-32 [facility] HospitalAutomated erythrocyte mean corpuscular hemoglobin concentration measurement (mass/volume)2019-11-07 11:23:00* Test Item Value Reference Range Interpretation Comments Mean Corpuscular Hemoglobin Concent (test code = 786-4) 32.5 31-35 [facility] HospitalRDW GuhLd-Cxq4247-49-15 11:23:00* Test Item Value Reference Range Interpretation Comments Red Cell Distribution Width (test code = 81653-5) 13.8 11.7 -14.4 [facility] HospitalAutomated blood platelet count (count/volume)2019-11-07 11:23:00* Test Item Value Reference Range Interpretation Comments Platelet Count (test code = 777-3) 415 140-360 [facility] HospitalAutomated blood segmented neutrophil count as percentage of total azaajoikwj0278-62-68 11:23:00* Test Item Value Reference Range Interpretation Comments Neutrophils (%) (Auto) (test code = 46205-1) 59.2 38.7-80.0 [facility] HospitalAutomated blood lymphocyte count as percentage ot total uqlrhfvedv1563-60-23 11:23:00* Test Item Value Reference Range Interpretation Comments Lymphocytes (%) (Auto) (test code = 736-9) 20.4 18.0-39.1 [facility] HospitalAutomated blood monocyte count as percentage of total uozjdinkcv7688-40-28 11:23:00* Test Item Value Reference Range Interpretation Comments Monocytes (%) (Auto) (test code = 5905-5) 5.7 4.4-11.3 [facility] HospitalAutomated blood eosinophil count as percentage of total fvthlbqnef5768-96-84 11:23:00* Test Item Value Reference Range Interpretation Comments Eosinophils (%) (Auto) (test code = 713-8) 13.4 0.0-6.0 [facility] HospitalAutomated blood basophil count as percentage of total uztemtxwwg7419-96-34 11:23:00* Test Item Value Reference Range Interpretation Comments Basophils (%) (Auto) (test code = 706-2) 0.7 0.0-1.0 [facility] HospitalFluoroscopic procedure less than one hour qmtuknyk9935-75-43 11:23:00* Test Item Value Reference Range Interpretation Comments IM GRANULOCYTES % (test code = IM GRANULOCYTES %) 0.6 0.0- 1.0 [facility] HospitalAutomated blood neutrophil count 2019-11-07 11:23:00* Test Item Value Reference Range Interpretation Comments Neutrophils # (Auto) (test code = 751-8) 7.1 2.1-6.9 [facility] HospitalBlood lymphocytes count (number/volume) 2019-11-07 11:23:00* Test Item Value Reference Range Interpretation Comments Lymphocytes # (Auto) (test code = 55382-0) 2.5 1.0-3.2 [facility] HospitalBlood monocytes automated count (number/volume)2019-11-07 11:23:00* Test Item Value Reference Range Interpretation Comments Monocytes # (Auto) (test code = 742-7) 0.7 0.2-0.8 [facility] HospitalAutomated blood eosinophil count 2019-11-07 11:23:00* Test Item Value Reference Range Interpretation Comments Eosinophils # (Auto) (test code = 711-2) 1.6 0.0-0.4 [facility] HospitalAutomated blood basophil count (count/volume)2019-11-07 11:23:00* Test Item Value Reference Range Interpretation Comments Basophils # (Auto) (test code = 704-7) 0.1 0.0-0.1 [facility] HospitalFluoroscopic procedure less than one hour brwsojdz5567-16-51 11:23:00* Test Item Value Reference Range Interpretation Comments Absolute Immature Granulocyte (auto (evin t code = Absolute Immature Granulocyte (auto) 0.07 0-0.1 [facility] HospitalProthrombin time (PT) in platelet poor plasma by coagulation jgdjk5653-91-39 11:23:00* Test Item Value Reference Range Interpretation Comments Prothrombin Time (test code = 5902-2) 12.7 11.9-14.5 [facility] HospitalINR in Platelet poor plasma by Coagulation zvzqo1478-86-97 11:23:00* Test Item Value Reference Range Interpretation Comments Prothromb Time International Ratio (test code = 6301-6) 0.91 Oral Anticoagulant Therapy INR Values:1. Low Intensity Therapy 1.5 - 2.02 . Moderate Intensity Therapy 2.0 - 3.03. High Intensity Therapy(1) 2.5 - 3. 54. High Intensity Therapy(2) 3.0 - 4.05. Panic Value INR > 5.0 [facility] HospitalActivated partial thromboplastin time (aPTT) in platelet poor plasma by coagulation qoibc6485-89-89 11:23:00* Test Item Value Reference Range Interpretation Comments Activated Partial Thromboplast Time (test code = 49239-2) 36.0 23.8-35.5 [facility] sodium measurement (moles/volume)2019-11-07 11:23:00* Test Item Value Reference Range Interpretation Comments Sodium Level (test code = 2951-2) 140 136-145 [facility] potassium measurement (moles/volume)2019-11-07 11:23:00* Test Item Value Reference Range Interpretation Comments Potassium Level (test code = 2823-3) 3.5 3.5-5.1 [facility] chloride measurement (moles/volume)2019-11-07 11:23:00* Test Item Value Reference Range Interpretation Comments Chloride Level (test code = 2075-0) 103 98-107 [facility] or plasma carbon dioxide, total measurement (moles/volume)2019-11-07 11:23:00* Test Item Value Reference Range Interpretation Comments Carbon Dioxide Level (test code = 2028-9) 26 22-29 [facility] or [facility] anion wbf3882-77-16 11:23:00* Test Item Value Reference Range Interpretation Comments Anion Gap (test code = 96319-2) 14.5 8-16 [facility] urea nitrogen measurement (mass/volume)2019-11-07 11:23:00* Test Item Value Reference Range Interpretation Comments Blood Urea Nitrogen (test code = 3094-0) 7 7-26 [facility] or plasma creatinine measurement (mass/volume)2019-11-07 11:23:00* Test Item Value Reference Range Interpretation Comments Creatinine (test code = 2160-0) 0.72 0.57-1.11 [facility] or plasma urea nitrogen/creatinine mass gpwbv9539-90-11 11:23:00* Test Item Value Reference Range Interpretation Comments BUN/Creatinine Ratio (test code = 3097-3) 10 6-25 [facility] HospitalEstimated glomerular filtration rate (GFR) xgawvyjffcqer9534-08-71 11:23:00* Test Item Value Reference Range Interpretation Comments Estimat Glomerular Filtration Rate (test code = 851548155) > 60 >60 Ranges were taken from the National Kidney Disease Education Program and the [facility] Kidney Foundation literature.Reference ranges:60 or greater: Kudgys18-15 ( for 3 consecutive months): Chronic kidney disease 15 or less: Kidney failureSt. Luke's Health – The Woodlands HospitalGlucose lfmwycoezfh8170-37-56 11:23:00* Test Item Value Reference Range Interpretation Comments Glucose Level (test code = BSP9346) 143 74-118 [facility] or plasma calcium measurement (mass/volume)2019-11-07 11:23:00* Test Item Value Reference Range Interpretation Comments Calcium Level (test code = 17840-0) 9.1 8.4-10.2 [facility]rum or plasma total bilirubin measurement (mass/volume)2019-11-07 11:23:00* Test Item Value Reference Range Interpretation Comments Total Bilirubin (test code = 1975-2) 0.5 0.2-1.2 [facility] HospitalFluoroscopic procedure less than one hour ongfvbhz2032-21-64 11:23:00* Test Item Value Reference Range Interpretation Comments Aspartate Amino Transf (AST/SGOT) (test code = Aspartate Amino Transf (AST/SGOT)) 22 5-34 [facility] Centererum or plasma alanine aminotransferase measurement (enzymatic activity/volume)2019-11-07 11:23:00* Test Item Value Reference Range Interpretation Comments Alanine Aminotransferase (ALT/SGPT) (test code = 1742-6) 34 0-55 [facility]rum or plasma protein measurement (mass/volume)2019-11-07 11:23:00* Test Item Value Reference Range Interpretation Comments Total Protein (test code = 2885-2) 7.4 6.5-8.1 [facility] albumin [facility] (mass/volume)2019-11-07 11:23:00* Test Item Value Reference Range Interpretation Comments Albumin (test code = 1751-7) 4.1 3.5-5.0 [facility] HospitalPlasma globulin measurement (mass/volume) 2019-11-07 11:23:00* Test Item Value Reference Range Interpretation Comments Globulin (test code = 55116-3) 3.3 2.3-3.5 [facility] albumin/globulin mass [id number] 11:23:00* Test Item Value Reference Range Interpretation Comments Albumin/Globulin Ratio (test code = 1759-0) 1.2 0.8-2.0 [facility] alkaline phosphatase measurement (enzymatic activity/volume)2019-11-07 11:23:00* Test Item Value Reference Range Interpretation Comments Alkaline Phosphatase (test code = 6768-6) 95 40-150 [facility] HospitalBNP [id number]-[id number] 11:23:00* Test Item Value Reference Range Interpretation Comments B-Type Natriuretic Peptide (test code = 89798-7) < 10.0 0-100 [facility] creatine kinase measurement (enzymatic activity/volume)2019-11-07 11:23:00* Test Item Value Reference Range Interpretation Comments Creatine Kinase (test code = 2157-6) 25 29-168 [facility] creatine kinase MB measurement (mass/volume)2019-11-07 11:23:00* Test Item Value Reference Range Interpretation Comments Creatine Kinase MB (test code = 09084-2) 0.50 0-5.0 [facility] HospitalTroponin I measurement by highly sensitive enzyme csddtcmlabg3935-72-45 11:23:00* Test Item Value Reference Range Interpretation Comments Troponin I (test code = 17140-1) 0.003 0-0.300 [facility] thyrotropin measurement by detection limit <= 0.005 miu/l (units/volume)2019-11-07 11:23:00* Test Item Value Reference Range Interpretation Comments Thyroid Stimulating Hormone (TSH) (test code = 17484-6) 1.193 0.350-4.940 [facility] HospitalFluoroscopic procedure less than one hour [id number] 11:23:00* Test Item Value Reference Range Interpretation [...] under 564(g) of the ACT.[facility] 2019-11-07 11:20:00* Test Item Value Reference Range Interpretation Comments Urine Color (test code = 5778-6) YELLOW YELLOW [facility] HospitalUrine ihalfua5364-54-21 11:20:00* Test Item Value Reference Range Interpretation Comments Urine Clarity (test code = 81994-0) CLEAR CLEAR [facility] gravity [facility] Urine by Test strip 2019-11-07 11:20:00* Test Item Value Reference Range Interpretation Comments Urine Specific [place] (test code = 5811-5) 1.020 1.010-1.[address] [facility] HospitalUrine pH measurement by automated test [id number] 11:20:00* Test Item Value Reference Range Interpretation Comments Urine pH (test code = 17785-8) 7 5-7 [facility] HospitalUrine leukocyte esterase detection by mkgbnlal9737-86-23 11:20:00* Test Item Value Reference Range Interpretation Comments Urine Leukocyte Esterase (test code = 5799-2) NEGATIVE NEGATIVE [facility] HospitalUrine nitrite [id number] 11:20:00* Test Item Value Reference Range Interpretation Comments Urine Nitrite (test code = 05707-9) NEGATIVE NEGATIVE [facility] HospitalUrine protein measurement by test strip (mass/volume)2019-11-07 11:20:00* Test Item Value Reference Range Interpretation Comments Urine Protein (test code = 5804-0) NEGATIVE NEGATIVE [facility] HospitalUrine glucose [id number] 11:20:00* Test Item Value Reference Range Interpretation Comments Urine Glucose (UA) (test code = 2349-9) NEGATIVE NEGATIVE [facility] HospitalUrine ketones detection by automated test [id number] 11:20:00* Test Item Value Reference Range Interpretation Comments Urine Ketones (test code = 11300-7) NEGATIVE NEGATIVE [facility] HospitalUrine urobilinogen measurement by test strip (mass/volume)2019-11-07 11:20:00* Test Item Value Reference Range Interpretation Comments Urine Urobilinogen (test code = 81273-5) 0.2 0.2-1 [facility] HospitalUrine total bilirubin measurement (mass/volume)2019-11-07 11:20:00* Test Item Value Reference Range Interpretation Comments Urine Bilirubin (test code = 1978-6) NEGATIVE NEGATIVE [facility] HospitalUrine erythrocytes [id number] 11:20:00* Test Item Value Reference Range Interpretation Comments Urine Blood (test code = 77765-7) NEGATIVE NEGATIVE [facility] HospitalAutomated urine sediment leukocyte count by microscopy (number/high power field)2019-11-07 11:20:00* Test Item Value Reference Range Interpretation Comments Urine WBC (test code = 5821-4) 0-5 0-5 [facility] HospitalErythrocytes detection in urine sediment by light [id number] 11:20:00* Test Item Value Reference Range Interpretation Comments Urine RBC (test code = 15560-9) 0-5 0-5 [facility] HospitalBacteria detection in urine sediment by light ntkolpicuk3044-85-73 11:20:00* Test Item Value Reference Range Interpretation Comments Urine Bacteria (test code = 43837-6) RARE NONE [facility] HospitalEpithelial cells detection in urine sediment by light rllrpdmtoy4950-58-95 11:20:00* Test Item Value Reference Range Interpretation Comments Urine Epithelial Cells (test code = 61919-8) MODERATE NONE [facility] HospitalVitamin B12 fqbfm7044-83-23 08:09:00* Test Item Value Reference Range Interpretation Comments Vitamin B12 (test code = 2132-9) 584 pg/mL 200-1100 IRENA (test code = IRENA) FASTING:NOFASTING: NO RAC (test code = RAC) Performing Organization Info rmation: Site ID: RGA Name: [facility] Address: [address] [place] [phone] Director: Clay Olivas [id number] 08:09:00* Test Item Value Reference Range Interpretation Comments Folate (test code = 2284-8) 11.8 ng/mL Reference Range Low: <3.4 Borderline: 3.4-5.4 Normal: >5.4 IRENA (test code = IRENA) FASTING:NOFASTING: NO RAC (test code = RAC) Performing Organization Info rmation: Site ID: RGA Name: [facility] Address: [address] [place] [phone] Director: Clay WellsistCyclic citrullinated peptide antibody, LtY4047-12-27 08:09:00* Test Item Value Reference Range Interpretation Comments Cyclic citrullin peptide Ab (test code = 81927-6) <16 [address] Reference RangeNegative: <20Weak Positive: 20-39Moderate Positive: 40- 59Strong Positive: >59 IRENA (test code = IRENA) FASTING:NOFASTING: NO RAC (test code = RAC) Performing Organization Info rmation: Site ID: IG Name: [facility] Address: [address] [place] [phone] Director: Dr. Clay NuñezCholesterol2019-10-12 00:31:00* Test Item Value Reference Range Interpretation Comments Cholesterol, total (test code = 2093-3) 170 mg/dL <200 IRENA (test code = IRENA) FASTING:YESFASTING: YES RAC (test code = RAC) Performing Organization Info rmation: Site ID: JOELLE Name: [facility] Address: [address] [place], [place] [id number] Director: Clay Cheikh GambinoArjun Cogswell MethodistHDL dlresnxjrge6393-55-38 00:31:00* Test Item Value Reference Range Interpretation Comments HDL cholesterol (test code = 2085-9) 59 mg/dL >50 IRENA (test code = IRENA) FASTING:YESFASTING: YES RAC (test code = RAC) Performing Organization Info rmation: Site ID: JOELLE Name: [facility] Address: [address] [place] [address] Director: Clay Cheikh [facility] OnjjbgulyChiamfifzyedi8943-57-48 00:31:00* Test Item Value Reference Range Interpretation Comments Triglycerides (test code = 2571-8) 94 mg/dL <150 IRENA (test code = IRENA) FASTING:YESFASTING: YES RAC (test code = RAC) Performing Organization Info rmation: Site ID: JOELLE Name: [facility] Address: [address] [place] [address] Director: Clay Cheikh [facility] MethodistLDL-CHOLESTEROL (REFLEX QUEST)2018-12-03 00:31:00* Test Item Value Reference Range Interpretation Comments LDL cholesterol calculated (test code = 95948-4) 92 mg/dL (calc) Reference range: <100 Desirable range <100 mg/dL for primary prevention; <70 mg/dL for patients with CHD or diabetic patients with > or = 2 CHD risk factors. LDL-C is now calculated using the Brittany calculation, which is a validated novel method providing better accuracy than the Friedewald equation in the estimation of LDL-C. James SS et al. PARAM. 2013;310(19): 4545-7061 (http:/ /education.[employer]/faq/KPL956) IRENA (test code = IRENA) FASTING:YESFASTING: YES RAC (test code = RAC) Performing Organization Info rmation: Site ID: [id number] Name: [facility] Address: [address] [place], [place] [phone] Director: Clay NuñezCHOL/HDLC RATIO (REFLEX QUEST)2018-12-03 00:31:00* Test Item Value Reference Range Interpretation Comments Cholesterol/HDL ratio (test code = 9830-1) 2.9 <5.0 (calc) IRENA (test code = IRENA) FASTING:YESFASTING: YES RAC (test code = RAC) Performing Organization Info rmation: Site ID: RGA Name: [facility] Address: [address] [place] [address] Director: Clay Díaz Cogswell Yolanda HDL CHOLESTEROL (REFLEX QUEST)2018-12-03 00:31:00* Test Item Value Reference Range Interpretation Comments Non-HDL cholesterol (test code = 16143-9) 111 <130 mg/dL ( calc) For patients with diabetes plus 1 major ASCVD risk factor, treating to a non-HDL-C goal of <100 mg/dL (LDL-C of <70 mg/dL) is considered a therapeutic option. IRENA (test code = IRENA) FASTING:YESFASTING: YES RAC (test code = RAC) Performing Organization Info rmation: Site ID: RGA Name: [facility] Address: [address] [place], [place] [phone] Director: Clay NuñezQuantiFERON-TB Gold Plus, 1 Apak2416-68-55 00:31:00* Test Item Value Reference Range Interpretation Comments Quantiferon TB gold plus (test code = 01657-5) NEGATIVE NEGATIV E Negative test result. M. tuberculosis complex infection unlikely. Quantiferon NIL (test code = 12686-8) 0.04 IU/mL Quantiferon mitogen minus NIL (test code = 25784-9) >10.00 IU /mL Quantiferon plus TB1 minus NIL (test code = 95840-4) 0.00 I U/mL Quantiferon plus TB2 minus [...] T- lymphocytes. For additional information, please refer tohttps://education.[employer]/faq/SJT314(This link is being provided for informational/educational purposes only.) IRENA (test code = IRENA) FASTING:YESFASTING: YES RAC (test code = RAC) Performing Organization Info rmation: Site ID: RGA Name: [facility] Address: [address] [place] [phone] Director: Clay Nuñez
--- OUTSIDE RECORDS SUMMARY | 2019-11-08 01:33 | XMS REPORT | Clinical Summary ---
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 08/15/2019 Orders Only Gastroenterology Any Thompson, TIEING MACHINE OPERATOR 05/12/2019 Documentation GastroenterLuci Oreilly 03/31/2019 Documentation Gastroenterology [...] (Primary Dx) 11/18/2018 Orders Only Gastroenterology after 11/07/2018 Immunizations Name Administration Dates Next Due FLUZONE [...] Comments Vital Sign 119/81 03/29/2019 10:58 AM [employer] Blood Pressure 88 03/29/2019 10:58 AM [employer]PER[employer] Pulse - - Temperature - - Respiratory Rate - - Oxygen Saturation - - Inhaled Oxygen Concentration 74.8 kg (165 lb) 03/29/2019 10:58 AM [employer] Weight 160 cm (5' 3") 03/29/2019 10:58 AM [employer]PER[employer] Height 29.23 03/29/2019 10:58 AM [employer] Body Mass Index Plan of Treatment Health [...] oint, multiple PEPTIDE AB, IGG 11:49 AM [employer] sites VITAMIN D 25 HYDROXY Routine 03/29/2019 Encounter for nutritional LEVEL 11:49 AM [employer] assessment VITAMIN B12 LEVEL Routine 03/29/2019 Encounter fo r nutritional 11:49 AM [employer] assessment TOTAL IRON BINDING Routine 03/29/2019 Encounter f or nutritional CAPACITY 11:49 AM [employer] assessment FOLATE LEVEL Routine 03/29/2019 Encounter for n utritional 11:49 AM [employer] assessment FERRITIN LEVEL Routine 03/29/2019 Encounter for n utritional 11:49 AM [employer] assessment SEDIMENTATION RATE Routine 03/29/2019 Ulcerative pancolitis 11:49 AM [employer]OR with other complication (HCC) Encounter for therapeutic drug monitoring C-REACTIVE PROTEIN Routine 03/29/2019 Ulcerative pancolitis 11:49 AM [employer] with other complication (HCC) Encounter for therapeutic drug monitoring COMPREHENSIVE METABOLIC Routine 03/29/2019 Ulcera tive pancolitis PANEL 11:49 AM [employer]PER[employer]OR with other complica tion (HCC) Encounter for therapeutic drug monitoring CBC WITH PLATELET AND Routine 03/29/2019 Ulcerati ve pancolitis 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 Iron level 46 40 - 190 mcg/dL Phase III [facility] [place] Iron binding 267 250 - 450 mcg/dL [facility] capacity (calc) AOL [place] Iron saturation 17 16 - 45 % (calc) Phase III Development [place] Specimen Blood Narrative Performed At MULTIPLE TESTING PRIORITIES; ROUTINE TESTING TO [employer] Resulting Agency Comment Performing Organization Information: Site ID: [id number] Name: [facility] Address: [address] [place] [phone] Director: Clay Díaz Performing Organization Address City/State/Zipcode Ph one Number [facility] [address] [address] * Vitamin D 25 hydroxy level (11/06/2019 4:57 PM CDT) Only the most recent of 2 results within the time period is included. Pathologist [facility] Vitamin D, 37 30 - 100 ng/mL [facility] 25-hydroxy Comment: DIAGNOSTICS Vitamin D Status [place] 25-OH Vitamin D: Deficiency: <20 ng/mL Insufficiency: 20 - 29 ng/mL Optimal: > or = 30 ng/mL For 25-OH Vitamin D testing on patients on D2-supplementation and patients for whom quantitation of D2 and D3 fractions is required, the QuestAssureD(TM) 25-OH VIT D, (D2,D3), LC/MS/MS is recommended: order code 34516 (patients >2yrs). See Note 1 Note 1 For additional information, please refer to http://education.Relevant e-solution.Bueroservice24/faq/KVM219 (This link is being provided for informational/ educational purposes only.) Specimen Blood Narrative Performed At MULTIPLE TESTING PRIORITIES; ROUTINE TESTING TO [employer] TROT[employer] Resulting Agency Comment Performing Organization Information: Site ID: [id number] Name: [facility] Address: [address] [place] [phone] Director: Clay Díaz Performing Organization Address [facility] one Number [facility] Phase III Development [place] [address] [place] [address] * Sedimentation rate (11/06/2019 4:57 PM CDT) Only the most recent of 3 results within the time period is included. Pathologist [facility] Sedimentation 43 (H) < OR = 20 mm/h [facility] rate [facility] Specimen Blood Narrative Performed At MULTIPLE TESTING PRIORITIES; ROUTINE TESTING TO RICH Avalos [employer] Resulting Agency Comment Performing Organization Information: Site ID: [id number] Name: [facility] Address: [address] [place] [phone] Director: Clay Díaz Performing Organization Address [facility] one Number [facility] [place] [address] [place] [address] * CBC with platelet and differential (11/06/2019 4:57 PM CDT) Only the most recent of 3 results within the time period is included. Pathologist [facility] WBC 19.8 (H) 3.8 - 10.8 [facility] Thousand/uL DIAGNOSTICS [place] RBC 4.66 3.80 - 5.10 [facility] Million/uL DIAGNOSTICS [place] HGB 13.6 11.7 - 15.5 g/dL [facility] [place] HCT 41.3 35.0 - 45.0 % [facility] [place] MCV 88.6 80.0 - 100.0 fL [facility] [place] MCH 29.2 27.0 - 33.0 pg [facility] [place] MCHC 32.9 32.0 - 36.0 g/dL [facility] [place] RDW 13.4 11.0 - 15.0 % [facility] [place] Platelet count 421 (H) 140 - 400 [facility] Thousand/uL DIAGNOSTICS [place] MPV 9.4 7.5 - 12.5 fL [facility] [place] Neutrophils, 13,919 (H) 1,500 - 7,800 [facility] absolute cells/uL DIAGNOSTICS [place] Lymphocytes, 3,485 850 - 3,900 cells/uL [facility] absolute DIAGNOSTICS [place] Monocytes, 990 (H) 200 - 950 cells/uL [facility] absolute DIAGNOSTICS [place] Eosinophils, 1,307 (H) 15 - 500 cells/uL [facility] absolute [facility]AGNOSTICS [place] Basophils, 99 0 - 200 cells/uL [facility] absolute DIAGNOSTICS [place] Neutrophils 70.3 % [facility] [place] Lymphocytes 17.6 % Phase III Development [place] Monocytes 5.0 % Phase III Development [place] Eosinophils 6.6 % Phase III Development [place] Basophils + RC 0.5 % Phase III Development [place] Specimen Blood Narrative Performed At MULTIPLE TESTING PRIORITIES; ROUTINE TESTING TO [employer] Resulting Agency Comment Performing Organization Information: Site ID: A Name: [facility] Address: [address] [place] [phone] Director: Clay Díaz Performing Organization Address [facility] one [facility] [place] [address] * C-reactive protein (11/06/2019 4:57 PM CDT) Only the most recent of 3 results within the time period is included. CRP 38.2 (H) <8.0 mg/L Phase III Development [place] Specimen Blood Narrative Performed At MULTIPLE TESTING PRIORITIES; ROUTINE TESTING TO [employer] Resulting Agency Comment Performing Organization Information: Site ID: A Name: [facility] Address: [address] [place] [phone] Director: Clay Díaz Performing Organization Address [facility] one [facility] [place] [address] * Ferritin level (11/06/2019 4:57 PM CDT) Only the most recent of 2 results within the time period is included. Ferritin level 215 16 - 232 ng/mL Phase III Development [place] Specimen Blood Narrative Performed At MULTIPLE TESTING PRIORITIES; ROUTINE TESTING TO [employer] Resulting Agency Comment Performing Organization Information: Site ID: [id number] Name: [facility] Address: [address] [place] [phone] Director: Clay Díaz Performing Organization Address [facility] one [facility] [place] [address] * Comprehensive metabolic panel (11/06/2019 4:57 PM CDT) Only the most recent of 3 results within the time period is included. Glucose 126 (H) 65 - 99 mg/dL [facility] Comment: DIAGNOSTICS Fasting [place] reference interval For someone without known diabetes, a glucose value >125 mg/dL indicates that they may have diabetes and this should be confirmed with a follow-up test. BUN 9 7 - 25 mg/dL Phase III Development [place] Creatinine 0.65 0.50 - 1.10 mg/dL [facility] [place] EGFR Non-Afr. 108 > OR = 60 [facility] Palestinian mL/min/1.73m2 DIAGNOSTICS [place] EGFR 125 > OR = 60 [facility] Palestinian mL/min/1.73m2 DIAGNOSTICS [place] BUN/creatinine NOT APPLICABLE 6 - 22 (calc) [facility] ratio DIAGNOSTICS [place] Sodium 137 135 - 146 mmol/L [facility] [place] Potassium 3.7 3.5 - 5.3 mmol/L [facility] [place] Chloride 98 98 - 110 mmol/L [facility] [place] CO2 30 20 - 32 mmol/L [facility] [place] Calcium 9.1 8.6 - 10.2 mg/dL [facility] [place] Protein 7.1 6.1 - 8.1 g/dL [facility] [place] Albumin, S 4.1 3.6 - 5.1 g/dL [facility] AOL [place] Globulin, total 3.0 1.9 - 3.7 g/dL [facility] (calc) [facility] Albumin/globuli 1.4 1.0 - 2.5 (calc) [facility] n ratio [facility] Total bilirubin 0.4 0.2 - 1.2 mg/dL [facility] [place] Alkaline 95 31 - 125 U/L [employer] phosphatase [facility] AST 20 10 - 30 U/L [employer] DIAGNOSTICS [place] ALT 26 6 - 29 U/L [employer] DIAGNOSTICS [place] Specimen Blood Narrative Performed At MULTIPLE TESTING PRIORITIES; ROUTINE TESTING TO RICH Avalos [facility] Resulting Agency Comment Performing Organization Information: Site ID: [id number] Name: [facility] Address: [address] [place] [phone] Director: Clay Díaz Performing Organization Address City/State/Zipcode Ph one Number [facility] [address] [address] * Cyclic citrullinated peptide antibody, IgG (03/29/2019 11:49 AM [employer]PER[employer]) Cyclic <16 UNITS [facility] citrullin Comment: DIAGNOSTICS-ANAYA peptide Ab Reference Range ING II Negative: <20 Weak Positive: 20-39 Moderate Positive: 40-59 Strong Positive: >59 Specimen Blood Narrative Performed At FASTING:NO [facility] FASTING: NO Resulting Agency Comment Performing Organization Information: Site ID: [id number] Name: [facility] Address: [address] [place] [address] Director: Dr. Clay Díaz Performing Organization Address [facility] one Number [employer] [id number] [place] [address] II * Folate level (03/29/2019 11:49 AM [employer]PER[employer]) Pathologist [facility] Folate 11.8 ng/mL [facility] Comment: [facility] Reference Range Low: <3.4 Borderline: 3.4-5.4 Normal: >5.4 Specimen Blood Narrative Performed At FASTING:NO [facility] FASTING: NO Resulting Agency Comment Performing Organization Information: Site ID: RGA Name: [facility] Address: [address] [place] [phone] Director: Clay Díaz Performing Organization Address [facility] one Number [facility] [address] [address] * Vitamin B12 level (03/29/2019 11:49 AM [employer]PER[employer]) [facility] Vitamin B12 584 200 - 1,100 pg/mL Phase III Development [place] Specimen Blood Narrative Performed At FASTING:NO [facility] FASTING: NO Resulting Agency Comment Performing Organization Information: Site ID: RGA Name: [facility] Address: [address] [place] [phone] Director: Clay Díaz Performing Organization Address [facility] one Number [facility] [address] [address] * QuantiFERON-TB Gold Plus, 1 Tube (11/30/2018 11:23 AM CDT) [facility] Quantiferon TB NEGATIVE NEGATIVE [facility] gold plus Comment: DIAGNOSTICS Negative test result. M. MEIER tuberculosis complex infection unlikely. Quantiferon NIL 0.04 IU/mL [facility] [place] Quantiferon >10.00 IU/mL [facility] mitogen minus DIAGNOSTICS NIL [place] Quantiferon 0.00 IU/mL [facility] plus TB1 minus DIAGNOSTICS NIL [place] Quantiferon 0.01 IU/mL [facility] plus TB2 minus [...] T-lymphocytes. For additional information, please refer to https://education.In[employer] Silicon.Bueroservice24/faq/VDB669 (This link is being provided for informational/ educational purposes only.) Specimen Narrative Performed At FASTING:YES [facility] FASTING: YES Resulting Agency Comment Performing Organization Information: Site ID: RGA Name: [facility] Address: [address] [place] [phone] Director: Clay Díaz Performing Organization Address [facility] one Number [place] [address] * NON HDL CHOLESTEROL (REFLEX [facility]) (11/30/2018 11:23 AM CDT) Non-HDL 111 <130 mg/dL (calc) [facility] cholesterol Comment: DIAGNOSTICS For patients with diabetes [place] plus 1 major ASCVD risk factor, treating to a non-HDL-C goal of <100 mg/dL (LDL-C of <70 mg/dL) is considered a therapeutic option. Specimen Narrative Performed At FASTING:YES [facility] FASTING: YES Resulting Agency Comment Performing Organization Information: Site ID: A Name: [facility] Address: [address] [place] [phone] Director: Clay Díaz Performing Organization Address [facility] one Number [place] [address] * CHOL/HDLC RATIO (REFLEX [facility]) (11/30/2018 11:23 AM CDT) Cholesterol/HDL 2.9 <5.0 (calc) [facility] ratio [facility] Specimen Narrative Performed At FASTING:YES [facility] FASTING: YES Resulting Agency Comment Performing Organization Information: Site ID: A Name: [facility] Address: [address] [place] [phone] Director: Clay Díaz Performing Organization Address [facility] one Number [facility] [employer] [place] [address] * LDL-CHOLESTEROL (REFLEX [facility]) (11/30/2018 11:23 AM CDT) LDL cholesterol 92 mg/dL (calc) [facility] calculated Comment: DIAGNOSTICS Reference range: <100 [place] Desirable range <100 mg/dL for primary prevention; <70 mg/dL for patients with CHD or diabetic patients with > or = 2 CHD risk factors. LDL-C is now calculated using the Brittany calculation, which is a validated novel method providing better accuracy than the Friedewald equation in the estimation of LDL-C. James DONOHUE et al. PARAM. 2013;310(19): 3422-9386 (http://education.Loud3r.Bueroservice24/faq/QQQ915) Specimen Narrative Performed At FASTING:YES [facility] FASTING: YES Resulting Agency Comment Performing Organization Information: Site ID: A Name: [facility] Address: [address] [place] [phone] Director: Clay Díaz Performing Organization Address [facility] one Number [place] [place] [address] * Triglycerides (11/30/2018 11:23 AM CDT) Triglycerides 94 <150 mg/dL Phase III Development [place] Specimen Narrative Performed At FASTING:YES [facility] FASTING: YES Resulting Agency Comment Performing Organization Information: Site ID: A Name: [facility] Address: [address] [place] [phone] Director: Clay Díaz Performing Organization Address [facility] one Number [employer] [place] [address] * HDL cholesterol (11/30/2018 11:23 AM CDT) HDL cholesterol 59 >50 mg/dL Phase III Development [place] Specimen Narrative Performed At FASTING:YES [facility] FASTING: YES Resulting Agency Comment Performing Organization Information: Site ID: RGA Name: [facility] Address: [address] [place] [phone] Director: Clay Díaz Performing Organization Address [facility] one Number [facility] [place] [address] [place] [address] * Cholesterol (11/30/2018 11:23 AM CDT) Cholesterol, 170 <200 mg/dL [facility] total DIAGNOSTICS [place] Specimen Narrative Performed At FASTING:YES [facility] FASTING: YES Resulting Agency Comment Performing Organization Information: Site ID: RGA Name: [facility] Address: [address] [place] [phone] Director: Clay Díaz Performing Organization Address [facility] one Number [facility] [place] [address] [place] [address] after 11/07/2018 Insurance Type Payer Benefit Subscriber ID Effective Phone Address Plan / Dates Group PPO BCBS BCBS xxxxxxxxxxxx [id number] CHOICE resent PPO/GOMEZ JERNIGAN PPO [id number] Advance Directives For more information, please contact: [phone] Patient Attendant Coin Operated Laundry Explanation Type Date Recorded Advance Directives, Living Will and Medical Power of Records Management Engineer
--- NOTE | 2019-11-08 02:00 | NUR ---
Received patient from the Emergency Room via stretcher. Patient is alert and oriented. No complain at this time. Oriented to room. Patient ambulates independently. Telemetry in used. Call light within reached.
[2019-11-08] MEDS: SODIUM CHLORIDE 0.9% 1000ML 1,000 ML IV SCH ×3 (02:05→17:01)
[2019-11-08] MEDS ORDERED: CELEBREX100 MG PO (06:11)
[2019-11-08] MEDS ORDERED: PANTOPRAZOLE SO40 MG PO (06:12)
[2019-11-08] MEDS ORDERED: [UNRECOGNIZED DRUG - OTHER] PO (06:13)
[2019-11-08] MEDS ORDERED: MESALAMINE800 MG PO (06:18)
[2019-11-08] MEDS ORDERED: VITAMIN D250 MCG PO (06:27)
[2019-11-08] MEDS ORDERED: DICYCLOMINE HCL 10 MG CAP PO PRN (06:45)
[2019-11-08] MEDS ORDERED: CELECOXIB 100 MG CAP PO PRN (06:45)
[2019-11-08] MEDS ORDERED: TEMAZEPAM 15 MG CAP PO PRN (06:45)
[2019-11-08] MEDS ORDERED: METOPROLOL TARTRATE INJ 1 MG/ML VIAL IV PRN (06:45)
[2019-11-08] MEDS: PANTOPRAZOLE SOD 40 MG TABEC PO SCH (07:46)
[2019-11-08] MEDS: ACETAMINOPHEN 325 MG TAB PO PRN ×2 (07:47→14:28)
[2019-11-08] MEDS ORDERED: ERGOCALCIFEROL 50,000 UNIT CAP PO SCH (09:00)
[2019-11-08 09:25] LABS: CREATINE KINASE MB 0.5 ng/mL (0-5.0)
--- NOTE | 2019-11-08 11:51 | NUR ---
Patient is ambulatory without assistance. PT discontinued per ordered.
--- NOTE | 2019-11-08 11:57 | History and Physical ---
PRIMARY CARE PHYSICIAN: Luis Kitchen MD OUTPATIENT COSMETIC MANAGER: Dr. Chilango Hirsch. CONSULTING PHYSICIAN: Dr. Shravan Coello with Gastroenterology. CHIEF COMPLAINT: High WBC (per PCP), fever, diarrhea, chest pain, and severe headache. HISTORY OF PRESENT ILLNESS: The patient is a 44-year-old female, who was admitted via the emergency department with diarrhea for 2 days, intermittent midsternal chest pain rated 10/10 yesterday, and rated 3/10 today with fever and four-day duration of severe headache, who was seen in this emergency department earlier on 11/06, due to being sent by her PCP for a leukocytosis with underlying history of ulcerative colitis. Her WBC here was 16.8, urinalysis negative, CT of the head negative, CT of the head negative for PE/pneumonia, temperature 100.6 (T-max), first set of cardiac enzymes were negative, COVID test negative twice on 11/06, ECG without signs of AL, lactic acid within normal limits at 1.2, and C. diff toxin/blood culture and sensitivities are pending. The patient denies any recent use of antibiotics or any sick contacts. She denies being around anyone with COVID. PAST MEDICAL HISTORY: Ulcerative colitis. PAST SURGICAL HISTORY: Total abdominal hysterectomy. She denies BSO. FAMILY HISTORY: Father has hypertension and diabetes mellitus. SOCIAL HISTORY: The patient lives with her and four children, who are all girls. 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 She denies any previous use of tobacco or illicit drugs. She uses alcohol on occasion. ALLERGIES: NO KNOWN ALLERGIES. HOME MEDICATIONS: Mesalamine 800 mg t.i.d., Celebrex 100 mg capsule b.i.d. p.r.n. joint pain, dicyclomine 10 mg q.i.d. p.r.n., abdominal pain, ergocalciferol 50 mcg capsule once a week, and Protonix 40 mg daily. REVIEW OF SYSTEMS: A 14-point review of systems was completed. CONSTITUTIONAL: She has had fever and chills, more so yesterday than today. She states that she has gained some weight, but she is unsure how much, which was unintentional. EYES, EARS, NOSE, AND THROAT: No complaints. RESPIRATORY: No complaints. CARDIOVASCULAR: Central chest pain, which was nonradiating, rated 9/10 on a 0-10 pain scale yesterday and today rated 3/10. She has had some racing heartbeats, palpitations. GASTROINTESTINAL: She had four bloody diarrhea stools yesterday and about four today. Her abdominal pain is about the same as yesterday, rated 5/10. She had nausea over the weekend. It is improving. She denies having any vomiting. GENITOURINARY: Denies dysuria or difficulty urinating. PSYCHIATRIC: Denies past psychiatric history. INTEGUMENTARY: No skin rash. No lesions. MUSCULOSKELETAL: She has had muscle pain and joint pain since Wednesday. NEUROLOGIC: Her headache began on Wednesday, yesterday it was rated 10/10, today 3/10. No dizziness. ENDOCRINE: No known history of diabetes. Denies being prediabetic. HEMATOLOGIC: No complaints of bleeding or bruising and the history of present illness of bloody diarrhea. PHYSICAL EXAMINATION: VITAL SIGNS: Temperature 98.3, T-max 100.6, pulse 84, blood pressure 106/68, respirations 18, and oxygen saturation 100%. Height 5 feet 3 inches, weight 165 pounds. BMI 29.22. GENERAL: Supine, in no acute distress. Awake, alert. LUNGS: Clear to auscultation. Respiratory pattern even and unlabored. No supplemental oxygen. HEENT: EOMI. Dry mucous membranes. NECK: Supple. No lymphadenopathy, thyromegaly, or JVD. CARDIOVASCULAR: Regular rate and rhythm without murmur. Normal saline infusing at 125 mL an hour into peripheral IV. ABDOMEN: Soft. Bowel sounds positive. Mild abdominal pain to gentle palpation. EXTREMITIES: Without pitting edema. No clubbing, cyanosis, or signs of DVT. NEUROLOGICAL: GCS 15. Nonfocal. DIAGNOSTIC STUDIES/LABORATORY DATA: WBC 16.8, hemoglobin 12.4, hematocrit 38.6, platelets 392, neutrophils 69.6%. PT 12.6, INR 0.9, PTT 35. Sodium 140, potassium 3.8, chloride 105, CO2 26, anion gap 12.8, BUN 9 and creatinine 0.72, estimated GFR greater than 60, glucose 102, lactic acid 1.2, calcium 8.7, total bilirubin 0.4, AST 22, ALT 32, alkaline phosphatase 90. Creatine kinase 22, CK-MB 0.5, troponin I 0.009, total protein 7.1, albumin 4, amylase 80, lipase 57. Urinalysis was negative. PH 7, specific gravity 1.025, rare bacteria. Serology; coronavirus PCR was negative. On 11/06, clostridium difficile toxin A and B collected and pending. Blood cultures x2 collected on 11/06, results pending. IMAGING/OTHER: 1. 12-lead EKG done on 11/06, with sinus tachycardia, heart rate 114. 2. On 11/06, brain CT without acute intracranial abnormality. 3. On 11/06, CT of the chest negative for pulmonary embolus. No CT evidence of right heart strain. Mild cardiomegaly without edema. Hepatic steatosis. For today's telemetry, sinus tachycardia with a heart rate of 107. ASSESSMENT AND PLAN: 1. Ulcerative colitis flare with bloody diarrhea and acute abdominal pain, improving. Given her signs and symptoms. Her mesalamine has been stopped. Gastroenterology consulted. Continue IV fluids. She is on a clear liquid diet. Follow up on Clostridium difficile toxin results and continue to monitor WBC count. 2. Acute chest pain with tachycardia, rule out acute coronary syndrome. First set of cardiac enzymes was negative. Next set of cardiac biomarkers two, today at 5:09 p.m. We will check lipid panel in the morning. Chest pain has significantly improved from 10/10 to 3/10. No ST changes noted on EKG. Continue IV fluid rate at 125 mL an hour. Monitor for improvement of tachycardia. 3. Severe headache, improving. CT of the brain was negative. Headache improving from 10/10 to 3/10. Dehydration from the diarrhea could be a contributing factor. We will add Fioricet p.r.n. 4. Acute leukocytosis with fever. WBCs 16.8. Continue to monitor. Urinalysis and CT of the chest were negative for urinary tract infection and pneumonia respectively. We will switch Rocephin to Zosyn q.6 hours. 5. Prophylaxis. Resume home dose of Protonix. The patient is ambulatory. Inpatient billing code [id number], H and P. Time spent 60 minutes. Dictated by Maximino Shelley NP Reddy Veloz MD HWP/MODL /[id number]
[2019-11-08] MEDS: PIPER-TAZ 3.375 GM 50 ML IV SCH ×2 (14:23→17:01)
--- NOTE | 2019-11-08 15:07 | NUR ---
Nutrition Screen Note RD Recommendation for Physician: - ADAT to goal of GI Soft Plan of Care: RD following, monitoring for tolerance and adequacy -Diet education provided 11/07 Nutrition reason for involvement: SHAKER TENDER consult- diet education Primary Diagnose(s): chest pain, diarrhea, fever, leukocytosis PMH: ulcerative colitis, hysterectomy Ht: 63 in Wt: 165 lb BMI: 29.2 kg/m2 IBW: [address] Assessment: (11/07) 44 YOF admitted for chest pain, headache, and diarrhea. Pt seen today per SHAKER TENDER consult for UC diet education. Pt reports eating well up until this weekend with onset of symptoms. Pt reports tolerating CLD and diarrhea is improving, BM today. Pt reports UBW of 165 lbs, no wt loss noted. Pt reports that she's has UC for 11 years and follows a diet at home limiting spicy foods, beans, sugar, sugar substitutes, raw vegetables, and alcohol. Reviewed diet with pt, all questions and concerns addressed at time of visit. Education materials provided. Chart reviewed. Labs and meds reviewed. Will continue to monitor. Current Diet: Clear liquids Malnutrition Evaluation (11/08/19) The patient does not meet criteria for a specified degree of malnutrition at this time. Will re-evaluate at follow-up as appropriate. Diet Education Needs Assessment: Diet education indicated, pt receptive- education provided 11/07. Learner(s): pt Barriers: none Cultural/Language Modifications: none Readiness: ready Method: handouts, discussion Topics: ulcerative colitis diet recommendations Understanding/Compliance: good Diet tolerance: tolerating CLD Nutrition Care Level: low Signed: Eduarda Ramirez RD, LD, [facility]
[2019-11-08 16:16] LABS: CREATINE KINASE MB 0.5 ng/mL (0-5.0)
[2019-11-08] MEDS: ACETAMIN/BUTALBITAL/CAFFEINE TAB PO PRN (17:48)
--- NOTE | 2019-11-08 19:41 | NUR ---
Received change of shift report from AM nurse. Walking rounds completed
[2019-11-08] MEDS: ONDANSETRON HCL INJ 2MG/ML 2ML 2 MG/ML VIAL IV PRN (19:58)
[2019-11-08] MEDS ORDERED: DICYCLOMINE HCL 20 MG TAB PO ONE (23:00)
[2019-11-09] VITALS (8 sets, daily range): BP systolic 98–115; BP diastolic 63–76
[2019-11-09] MEDS: MESALAMINE 1,000 MG SUPP RC ONE ×2 (00:03→00:54)
[2019-11-09] MEDS: SODIUM CHLORIDE 0.9% 1000ML 1,000 ML IV SCH ×3 (01:04→18:48)
--- NOTE | 2019-11-09 01:05 | NUR ---
Dr Coello ordered canasa med. for patient. Per pharmacy med is not life threaten that he need to come to give to patient so med will be available tomorrow. Dr Coello aware. Patient will get [address] Coello.
--- NOTE | 2019-11-09 03:24 | NUR ---
Patient resting quitly at this time with no c/o. Continue monitor for changes in condition.
[2019-11-09] MEDS: METRONIDAZOLE 500MG/NS 100ML 100 ML IV SCH ×4 (05:31→18:07)
[2019-11-09] MEDS: PIPER-TAZ 3.375 GM 50 ML IV SCH ×5 (05:31→23:42)
[2019-11-09 06:19] LABS: BASOPHILS # (AUTO) 0.1 (0.0-0.1); BASOPHILS % 0.8 % (0.0-1.0); EOSINOPHILS # (AUTO) 1.1 (0.0-0.4); HEMATOCRIT 35.1 % (34.2-44.1); HEMOGLOBIN 11.5 g/dL (12.0-16.0); LYMPHOCYTES # (AUTO) 2.3 (1.0-3.2); MEAN CORPUSCULAR HEMOGLOBIN 29.6 pg (28-32); MEAN CORPUSCULAR HGB CONC 32.8 g/dL (31-35); MEAN CORPUSCULAR VOLUME 90.2 fL (81-99); MONOCYTES # (AUTO) 0.7 (0.2-0.8); MONOCYTES % 6.7 % (4.4-11.3); NEUTROPHILS # (AUTO) 6.1 (2.1-6.9); NEUTROPHILS % 59.1 % (38.7-80.0); PLATELET COUNT 355 x10e3/uL (140-360); RED BLOOD COUNT 3.89 x10e6/uL (3.6-5.1); RED CELL DISTRIBUTION WIDTH 13.6 % (11.7-14.4)
[2019-11-09 06:39] LABS: ALANINE AMINOTRANSFERASE 25 IU/L (0-55); ALBUMIN 3.6 g/dL (3.5-5.0); ALBUMIN/GLOBULIN RATIO 1.3 (0.8-2.0); ALKALINE PHOSPHATASE 82 IU/L (40-150); ANION GAP 12.7 mmol/L (8-16); BLOOD UREA NITROGEN < 5 mg/dL (7-26); CALCIUM 8.2 mg/dL (8.4-10.2); CARBON DIOXIDE 24 mmol/L (22-29); CHLORIDE 106 mmol/L (98-107); CREATININE, SERUM 0.72 mg/dL (0.57-1.11); EST GLOMERULAR FILTRATION RATE > 60 ML/MIN (60-); GLUCOSE 85 mg/dL (74-118); POTASSIUM 3.7 mmol/L (3.5-5.1); SODIUM 139 mmol/L (136-145)
[2019-11-09 06:40] LABS: CHOL/HDL RATIO 3.9 (3.0-3.6); MAGNESIUM 2.1 MG/DL (1.3-2.1); PHOSPHORUS 3.5 MG/DL (2.3-4.7)
--- NOTE | 2019-11-09 06:46 | NUR ---
Stool sent to lab.
[2019-11-09 06:52] LABS: BUN/CREATININE RATIO 7 (6-25)
[2019-11-09] MEDS ORDERED: MESALAMINE 1,000 MG SUPP RC ONE (09:00)
[2019-11-09] MEDS: DICYCLOMINE HCL 20 MG TAB PO SCH ×4 (09:16→20:18)
[2019-11-09] MEDS: PANTOPRAZOLE SOD 40 MG TABEC PO SCH (09:16)
[2019-11-09] MEDS: ONDANSETRON HCL INJ 2MG/ML 2ML 2 MG/ML VIAL IV PRN (09:21)
--- NOTE | 2019-11-09 18:55 | NUR ---
WALKING ROUNDS PERFORMED, RECEIVED PT LAYING SEMI FOWLERS IN BED, AAOX3, RR EVEN AND NON-LABORED, ON ROOM AIR. NO S/SX OF DISTRESS NOTED. LEFT PT LAYING SEMI FOWLERS IN BED, BED IN LOW LOCKED POSITION, SIDE RAILS UPX2, CALL LIGHT AND PHONE WITHIN REACH.
--- NOTE | 2019-11-09 19:09 | NUR ---
report given to oncoming nurse ,walking rounds complete.
[2019-11-09] MEDS: MESALAMINE 1,000 MG SUPP RC SCH (20:20)
[2019-11-09] MEDS: ACETAMIN/BUTALBITAL/CAFFEINE TAB PO PRN (20:25)
--- NOTE | 2019-11-09 22:28 | NUR ---
RECEIVED CALL FROM MD Tyra YIP CONCERNING PT DIET AND BM'S. NEW ORDERS RECEIVED TO ADVANCE PT DIET TO FULL LIQUID.
[2019-11-10] VITALS (7 sets, daily range): BP systolic 103–112; BP diastolic 59–77
[2019-11-10] MEDS ORDERED: MESALAMINE 400 MG CAP PO SCH
[2019-11-10] MEDS: METRONIDAZOLE 500MG/NS 100ML 100 ML IV SCH ×5 (00:30→23:38)
[2019-11-10] MEDS: SODIUM CHLORIDE 0.9% 1000ML 1,000 ML IV SCH ×3 (03:40→19:07)
[2019-11-10] MEDS: PIPER-TAZ 3.375 GM 50 ML IV SCH ×3 (06:08→17:30)
[2019-11-10] MEDS: MESALAMINE 400 MG CAP PO SCH ×3 (06:08→21:57)
--- NOTE | 2019-11-10 07:00 | NUR ---
BEDSIDE SHIFT REPORT RECEIVED FROM THE INFORMATICS PHARMACIST RN. EDUCATED PT ABOUT FALL PRECAUTIONS. PT VERBALIZED UNDERSTANDING. CALL LIGHT WITH IN EASY REACH. BED IS LOW AND LOCKED. SIDE RAILS X2. ALL SAFETY MEASURES IN PLACE. PT DENIES NEEDS AT THIS TIME.
[2019-11-10] MEDS: PANTOPRAZOLE SOD 40 MG TABEC PO SCH (09:17)
[2019-11-10] MEDS: DICYCLOMINE HCL 20 MG TAB PO SCH ×4 (09:17→20:07)
--- NOTE | 2019-11-10 19:00 | NUR ---
SBAR report received FROM RN ALAN, patient see awake, AOX3, RESP EVEN AND UNLABORED, NO DISTRESS NOTED, CALL LIGHT WITHIN REACH, RESUME CARE OF PATIENT PT C/O NAUSEA, ZOFRAN PRN GIVEN IV TOLERATED WELL, IV SITE REMAINS INTACT
--- NOTE | 2019-11-10 19:05 | NUR ---
BEDSIDE SHIFT REPORT GIVEN TO THE CROZER OPERATOR RN. PT DENIED FURTHER NEEDS.
[2019-11-10] MEDS: MESALAMINE 1,000 MG SUPP RC SCH (20:04)
[2019-11-10] MEDS: ACETAMIN/BUTALBITAL/CAFFEINE TAB PO PRN (20:13)
[2019-11-11] VITALS (11 sets, daily range): BP systolic 103–121; BP diastolic 63–81
[2019-11-11] MEDS: SODIUM CHLORIDE 0.9% 1000ML 1,000 ML IV SCH ×3 (00:54→18:15)
[2019-11-11] MEDS: PIPER-TAZ 3.375 GM 50 ML IV SCH ×5 (00:54→23:20)
[2019-11-11] MEDS: PANTOPRAZOLE 40 MG 10ML VIAL IV SCH ×2 (04:24→17:00)
[2019-11-11] MEDS: METRONIDAZOLE 500MG/NS 100ML 100 ML IV SCH ×3 (04:24→17:26)
[2019-11-11] MEDS: ACETAMIN/BUTALBITAL/CAFFEINE TAB PO PRN (04:25)
[2019-11-11] MEDS: MESALAMINE 400 MG CAP PO SCH ×3 (05:00→20:59)
--- NOTE | 2019-11-11 06:46 | NUR ---
SBAR REPORT GIVEN TO DAYSHIFT RN AT BEDSIDE, NO DISTRESS NOTED CALL LIGHT WITHIN REACH
[2019-11-11 06:52] LABS: BASOPHILS # (AUTO) 0.1 (0.0-0.1); BASOPHILS % 0.9 % (0.0-1.0); EOSINOPHILS # (AUTO) 1.1 (0.0-0.4); EOSINOPHILS % 11.7 % (0.0-6.0); HEMATOCRIT 34.7 % (34.2-44.1); HEMOGLOBIN 11.4 g/dL (12.0-16.0); LYMPHOCYTES # (AUTO) 2.5 (1.0-3.2); LYMPHOCYTES % 27.6 % (18.0-39.1); MEAN CORPUSCULAR HEMOGLOBIN 28.9 pg (28-32); MEAN CORPUSCULAR HGB CONC 32.9 g/dL (31-35); MEAN CORPUSCULAR VOLUME 88.1 fL (81-99); MONOCYTES # (AUTO) 0.8 (0.2-0.8); MONOCYTES % 8.7 % (4.4-11.3); NEUTROPHILS # (AUTO) 4.6 (2.1-6.9); NEUTROPHILS % 50.8 % (38.7-80.0); PLATELET COUNT 344 x10e3/uL (140-360); RED BLOOD COUNT 3.94 x10e6/uL (3.6-5.1); RED CELL DISTRIBUTION WIDTH 13.5 % (11.7-14.4)
--- NOTE | 2019-11-11 07:00 | NUR ---
BEDSIDE SHIFT REPORT RECEIVED FROM THE SPECIAL DELIVERY MAIL CARRIER RN. EDUCATED PT ABOUT FALL PRECAUTIONS. PT VERBALIZED UNDERSTANDING. CALL LIGHT WITH IN EASY REACH. INSTRUCTED PT TO USE CALL LIGHT FOR ALL THE NEEDS. BED IS LOW AND LOCKED. SIDE RAILS X2. PT DENIES NEEDS AT THIS TIME.
[2019-11-11 07:13] LABS: ANION GAP 12.5 mmol/L (8-16); BLOOD UREA NITROGEN < 5 mg/dL (7-26); CALCIUM 8.4 mg/dL (8.4-10.2); CARBON DIOXIDE 24 mmol/L (22-29); CHLORIDE 108 mmol/L (98-107); CREATININE, SERUM 0.73 mg/dL (0.57-1.11); EST GLOMERULAR FILTRATION RATE > 60 ML/MIN (60-); GLUCOSE 92 mg/dL (74-118); POTASSIUM 3.5 mmol/L (3.5-5.1); SODIUM 141 mmol/L (136-145)
[2019-11-11 07:18] LABS: BUN/CREATININE RATIO 7 (6-25)
[2019-11-11] MEDS: DICYCLOMINE HCL 20 MG TAB PO SCH ×4 (09:12→20:59)
[2019-11-11] MEDS: ONDANSETRON HCL INJ 2MG/ML 2ML 2 MG/ML VIAL IV PRN (14:18)
[2019-11-11] MEDS: MESALAMINE 1,000 MG SUPP RC SCH (20:59)
[2019-11-12] VITALS (11 sets, daily range): BP systolic 105–117; BP diastolic 58–74
[2019-11-12] MEDS: METRONIDAZOLE 500MG/NS 100ML 100 ML IV SCH ×4 (00:39→17:29)
[2019-11-12] MEDS: SODIUM CHLORIDE 0.9% 1000ML 1,000 ML IV SCH ×3 (00:39→17:29)
[2019-11-12] MEDS: PANTOPRAZOLE 40 MG 10ML VIAL IV SCH ×2 (04:43→17:28)
[2019-11-12] MEDS: MESALAMINE 400 MG CAP PO SCH ×3 (05:03→23:24)
[2019-11-12] MEDS: PIPER-TAZ 3.375 GM 50 ML IV SCH ×4 (05:17→23:00)
--- NOTE | 2019-11-12 07:10 | NUR ---
SBAR REPORT RECEIVED AT BEDSIDE, PATIENT AWAKE ALERT, ONCOMING SHIFT RN UPDATED WITH PLAN OF CARE CALL LIGHT WITHIN REACH
[2019-11-12] MEDS: DICYCLOMINE HCL 20 MG TAB PO SCH ×4 (09:26→19:45)
[2019-11-12] MEDS: MESALAMINE 1,000 MG SUPP RC SCH (19:45)
[2019-11-13] VITALS (7 sets, daily range): BP systolic 99–112; BP diastolic 60–78
[2019-11-13] MEDS: METRONIDAZOLE 500MG/NS 100ML 100 ML IV SCH ×3 (00:47→12:24)
[2019-11-13] MEDS: SODIUM CHLORIDE 0.9% 1000ML 1,000 ML IV SCH ×2 (00:48→08:33)
[2019-11-13] MEDS: PANTOPRAZOLE 40 MG 10ML VIAL IV SCH (04:03)
[2019-11-13] MEDS: PIPER-TAZ 3.375 GM 50 ML IV SCH ×2 (04:45→12:24)
[2019-11-13 06:17] LABS: BASOPHILS # (AUTO) 0.1 (0.0-0.1); BASOPHILS % 0.7 % (0.0-1.0); EOSINOPHILS % 8.5 % (0.0-6.0); HEMOGLOBIN 11.7 g/dL (12.0-16.0); LYMPHOCYTES # (AUTO) 2.6 (1.0-3.2); LYMPHOCYTES % 22.9 % (18.0-39.1); MEAN CORPUSCULAR HEMOGLOBIN 31.5 pg (28-32); MEAN CORPUSCULAR HGB CONC 34.4 g/dL (31-35); MEAN CORPUSCULAR VOLUME 91.6 fL (81-99); MONOCYTES # (AUTO) 0.8 (0.2-0.8); MONOCYTES % 7.1 % (4.4-11.3); NEUTROPHILS # (AUTO) 6.8 (2.1-6.9); NEUTROPHILS % 59.2 % (38.7-80.0); PLATELET COUNT 280 x10e3/uL (140-360); RED BLOOD COUNT 3.71 x10e6/uL (3.6-5.1); RED CELL DISTRIBUTION WIDTH 14.2 % (11.7-14.4)
[2019-11-13] MEDS: MESALAMINE 400 MG CAP PO SCH ×2 (06:46→13:13)
[2019-11-13 06:48] LABS: ALANINE AMINOTRANSFERASE 27 IU/L (0-55); ALBUMIN 3.6 g/dL (3.5-5.0); ALBUMIN/GLOBULIN RATIO 1.2 (0.8-2.0); ALKALINE PHOSPHATASE 81 IU/L (40-150); ANION GAP 11.4 mmol/L (8-16); BLOOD UREA NITROGEN 6 mg/dL (7-26); BUN/CREATININE RATIO 9 (6-25); CARBON DIOXIDE 22 mmol/L (22-29); CHLORIDE 109 mmol/L (98-107); CREATININE, SERUM 0.67 mg/dL (0.57-1.11); EST GLOMERULAR FILTRATION RATE > 60 ML/MIN (60-); GLUCOSE 89 mg/dL (74-118); MAGNESIUM 1.8 MG/DL (1.3-2.1); POTASSIUM 3.4 mmol/L (3.5-5.1); SODIUM 139 mmol/L (136-145)
[2019-11-13] MEDS: DICYCLOMINE HCL 20 MG TAB PO SCH ×2 (08:33→13:13)
[2019-11-13] MEDS ORDERED: DICYCLOMINE HCL20 MG PO (12:28)
[2019-11-13] MEDS ORDERED: POTASSIUM CHLORIDE 20 MEQ TAB CR PO ONE (13:00)
[2019-11-13] MEDS ORDERED: ONDANSETRON HCL 4 MG ORAL DISINTEGRATING TAB PO PRN (14:45)
[2019-11-13] MEDS ORDERED: PANTOPRAZOLE SOD 40 MG TABEC PO SCH (16:30)
--- NOTE | 2019-11-13 18:04 | Discharge Summary ---
CONSULTING PHYSICIAN: Shravan Coello M.D. with Gastroenterology. OUTPATIENT CHANGE MANAGEMENT COORDINATOR: Dr. Chilango Hirsch PRIMARY CARE PHYSICIAN: Luis Kitchen M.D. CHIEF COMPLAINT: High WBC (per PCP), fever, diarrhea, chest pain, and severe headache. Please see History and Physical for history of present illness, past medical history, surgical history, family history, and social history. The patient has no known allergies. ADMITTING DIAGNOSES: 1. Ulcerative colitis flareup with bloody diarrhea and acute abdominal pain, improving. 2. Acute chest pain with tachycardia, rule out ACS. 3. Severe headache, improving. 4. Acute leukocytosis with fever. The patient's WBCs were 16.8 on admission, yesterday 8.99 and today 11.47. Several stool studies were done. Her C difficile toxin was negative. IgA endomysial antibody, tissue transglutamine IgA are all pending from 11/08. Coronavirus PCR on 11/06 was negative. Today, sodium 139, potassium 3.4, chloride 109, CO2 of 22, anion gap 11.4, BUN 6, creatinine 0.67, estimated GFR greater than 60, glucose 89, calcium 8, and magnesium 1.8. Total bilirubin 0.3, AST 29, ALT 27, alkaline phosphatase 81, total protein 6.5, and albumin 3.6. Hemoglobin 11.7, hematocrit 34, platelets 280, neutrophils 59.2%. Stool studies for ova and parasite are pending. Salmonella/Shigella screen was negative, it is a final result. E coli shiga toxin final was negative. Campy culture showed no Campylobacter species isolated. CT of the chest done on 11/07, it shown mildly limited evaluation of the subsegmental pulmonary arteries, questionable tiny filling defects and a couple of subsegmental pulmonary arteries, otherwise no pulmonary emboli, no CT evidence of right heart strain, mild cardiomegaly, no edema. Hepatic steatosis. CT of the brain was negative for acute intracranial abnormality. The patient will be discharged home on her usual home medications on GI soft diet. She currently has no complaints of abdominal pain. No diarrhea. Still with some nausea. No blood in her stool. I will stop her normal saline at 50 mL an hour. No change in her physical examination. We will give her 20 mEq potassium chloride for potassium 3.4. Follow up with PCP, Dr. Kitchen in 1-2 weeks. Follow up with Dr. Coello as directed and/or her outpatient admissions manager. Activity level as tolerated. Dictated by Maximino Shelley, MARIPOSA MD AZAR Lester/MARÍA /[id number]
[2019-11-14 06:11] LABS: ENDOMYSIAL ANTIBODIES, IGA Negative (Negative)
== END 2019-11-13 15:16 | disposition home or self-care (01) | DRG 386 ==
LOC: ER 21:33 → ERHOLD 11-08 01:30 → MED/SURG3 11-08 01:58
PROVIDERS: ADMIT Internal Medicine; ATTEND Internal Medicine
DX: K51.818 Other ulcerative colitis with other complication (principal); I24.9 Acute ischemic heart disease, unspecified; R50.9 Fever, unspecified; R00.0 Tachycardia, unspecified; R19.7 Diarrhea, unspecified; Z11.59 Encounter for screening for other viral diseases; I51.7 Cardiomegaly
CPT/HCPCS: 36415; 70450; 71260; 80048; 80053; 80061; 81001; 82150; 82550; 82553; 82784; 83036; 83516; 83605; 83630; 83690; 83735; 83993; 84100; 84484; 85025; 85610; 85730; 86140; 86256; 87040; 87045; 87177; 87493; 93005; 96361; 99284; J0696; J2405; J2543; J7030; Q9967; U0002